=== PATIENT | female | born 1955 | race Caucasian/White ===

== ENCOUNTER → 2018-03-19 | Outpatient (CLI) | payer OTHER ==
[~2018-03-19] MED LIST: AMLO10TA82 PO; CIPR-17 PO; CIPR500T78 PO; CLON-378 PO; FURO40TA4 PO; GLIM4TAB PO; HCT25T PO; LEVO500T69 PO; LIRA0.6P SQ; LORA-794 PO; METF750T2 PO; NEBI20TA2 PO; OXYC-12 PO; PHEN118S11 PO; PIOG45TA19 PO; PRD5T PO; PREG100C22 PO; PROMETHAZINE PO; RAMI10CA PO; SPIR25TA3 PO; TEMA30CA6 PO; TOPI25TA2 PO
--- NOTE | 2018-03-19 13:06 | Diagnostic Imaging Report ---
INDICATION: Screening. TECHNIQUE: Screening digital mammography was performed bilaterally with a Computer Aided Detection (CAD) system. 3D tomosynthesis was also performed and reviewed. COMPARISON: No prior examinations are available for comparison. FINDINGS: There are scattered fibroglandular densities bilaterally. There are extensive vascular calcifications as well as a few benign type calcifications. There is no dominant mass, spiculated lesion, or suspicious calcification identified. The skin, nipples, and axillae are unremarkable. IMPRESSION: Benign findings. ACR BI-RADS Category 2: Benign findings. Result letter will be mailed to the patient. Note: At least 10% of breast cancer is not imaged by mammography. Dictated by: Dictated on workstation # [id number]
== END ==
LOC: RAD 07:22
PROVIDERS: ATTEND Nurse Practitioner Family
DX: Z12.31 Encounter for screening mammogram for malignant neoplasm of breast (principal)
CPT/HCPCS: 77067

== ENCOUNTER 2018-07-08 10:45 | Outpatient (CLI) | payer OTHER ==
[~2018-07-08] VITALS: Ht 170.2 cm; Wt 129.7 kg
[~2018-07-08 10:45] MED LIST changes: +ASPI-586 PO; +CALC0.5C11 PO; +FEBU80TA PO; +GABA-486 PO; +GLIP10TA13 PO; +INSU100I34 SQ; +LOSA50TA7 PO; +METO50TA15 PO; +METO5TAB6 PO; +PIOG15TA67 PO; +PRAV20TA3 PO
== END 2018-07-08 10:49 | disposition home or self-care (01) ==
LOC: PREOP 10:45
PROVIDERS: ATTEND Surgery
DX: Z01.818 Encounter for other preprocedural examination (principal)

== ENCOUNTER 2018-07-10 09:48 | Day surgery (SDC) | payer OTHER ==
[~2018-07-10] VITALS: Ht 170.2 cm; Wt 129.7 kg
[2018-07-10] MEDS ORDERED: D5 NS 1000 ML IV SOLUTION 1,000 ML IV ONE (09:51)
[2018-07-10 09:55] VITALS: BP 118/65
[2018-07-10] MEDS ORDERED: fentaNYL INJECTION 100 MCG/2 ML AMP IVP ONE (10:15)
[2018-07-10] MEDS ORDERED: MIDAZOLAM 2 MG/2 ML (VERSED) VIAL IVP ONE (10:15)
[2018-07-10] MEDS ORDERED: LIDOCAINE JELLY 2% 6 ML SYRINGE MM PRN (10:15)
[2018-07-10] MEDS ORDERED: MIDAZOLAM 2 MG/2 ML (VERSED) VIAL ONE ×4 (10:19→10:20)
[2018-07-10] MEDS ORDERED: fentaNYL INJECTION 100 MCG/2 ML AMP ONE (10:19)
[2018-07-10] MEDS ORDERED: LIDOCAINE JELLY 2% 6 ML SYRINGE ONE (10:20)
[2018-07-10] MEDS ORDERED: D5 NS 1000 ML IV SOLUTION 1,000 ML IV PRN (10:30)
--- NOTE | 2018-07-10 10:57 | Conscious Sedation/ASA ---
Conscious Sedation Pre-Proced Time 09:30 ASA Score 2 For ASA 3 and 4: Consider anesthesia and medical clearance. Also, for patients with a history of failed moderate sedation consider anesthesia. Airway Lungs Heart ASA score ASA 1: a normal healthy patient ASA 2: a patient with a mild systemic disease (mid diabetes, controlled hypertension, obesity ASA 3: a patient with a severe systemic disease that limits activity (angina , COPD, prior Myocardial infarction) ASA 4: a patient with an incapacitating disease that is a constant threat to life (CHF, renal failure) ASA 5: a moribund patient not expected to survive 24 hrs. (ruptured aneurysm) ASA 6: a declared brain patient whose organs are being harvested. For emergent operations, add the letter E after the classification Mallampati Classification Grade 3 Sedation Plan Analgesia, Amnesia, Plan communicated to team members, Discussed options with patient/fam, Discussed risks with patient/fam The patient is an appropriate candidate to undergo the planned procedure, sedation, and anesthesia. The patient immediately re-assessed prior to indication. ROS PEREIRA MD Jul 10, 2018 10:57
--- NOTE | 2018-07-10 10:58 | Progress Note-Pre Operative ---
Pre-Operative Progress Note H&P Reviewed The H&P was reviewed, patient examined and no changes noted. Date Seen by Provider: Jul 10, 2018 Time Seen by Provider: 09:30 Date H&P Reviewed: Jul 10, 2018 Time H&P Reviewed: :30 Pre-Operative Diagnosis: screening colonoscopy ROS PEREIRA MD Jul 10, 2018 10:58
--- NOTE | 2018-07-10 10:59 | Progress Note-Post Operative ---
Post-Operative Progess Note Surgeon (s)/Scullion Chief (s) Surgeon ROS PEREIRA MD Scullion Chief: none Pre-Operative Diagnosis screening colonoscopy Post-Operative Diagnosis mild chronic stage1 ext and int hemorrhoids. Procedure & Operative Findings Date of Procedure 07/10/18 Procedure Performed/Findings Colonoscopy Anesthesia Type CS Estimated Blood Loss Estimated blood loss (mL): minimal Specimens/Packing Specimens Removed none ROS PEREIRA MD Jul 10, 2018 10:59
[2018-07-10] MEDS ORDERED: ONDANSETRON 4 MG/2 ML (SDV) Z0FRAN IV PRN (11:00)
[2018-07-10] MEDS ORDERED: morphine INJ 10 MG/ML 1ML (SYR OR VIAL) IV PRN (11:00)
[2018-07-10] MEDS ORDERED: HYDROcodone/APAP 5 MG/325 MG (LORTAB) TAB PO PRN (11:00)
[2018-07-10] MEDS ORDERED: ACETAMINOPHEN 325 MG TABLET PO PRN (11:00)
--- NOTE | 2018-07-10 11:02 | Discharge Inst-Surgical ---
D/C Lap Instructions-KIDO Follow Up Appt 10 years Activity as tolerated High Fiber Diet 25g or more per day Avoid Alcohol, Caffeine, Spicy [place] and Acid foods. Drink 64 fluid oz or more of fluids per day. Symptoms to Report: Fever over 101 degree F, Nausea/Vomiting If any problems/questions: Contact your physician or go to Emergency Room ROS PEREIRA MD Jul 10, 2018 11:02
[2018-07-10 11:10] VITALS: BP 140/66
[2018-07-10 11:35] VITALS: BP 122/60
[2018-07-10 12:05] VITALS: BP 122/60
--- NOTE | 2018-07-10 15:00 | OPERATIVE REPORT ---
DATE OF SERVICE: 07/10/2018 ATTENDING PRIMARY CARE PHYSICIAN: Rafael Maher MD. PREOPERATIVE DIAGNOSIS: Screening colonoscopy. POSTOPERATIVE DIAGNOSIS: Mild chronic stage I external and internal hemorrhoids. The remainder of the rectum and colon were normal. PROCEDURE: Colonoscopy. SURGEON: Ros Pereira MD. ANESTHESIA: Conscious sedation. ESTIMATED BLOOD LOSS: Minimal. FINDINGS: Mild chronic stage I external and internal hemorrhoids, not actively edematous nor inflamed and no bleeding. The remainder of the rectum and colon were normal. There were no polyps or any neoplasms identified. DISPOSITION: The patient tolerated the procedure well. INDICATIONS: The patient is a 62-year-old female in need of a screening colonoscopy. She has not had a colonoscopy up to this point in her life. She reports, for the most part, she is doing well and does not report any major issues with diarrhea nor constipation as well as no red blood per rectum nor any dark tarry stools. She also does not report any family history of colon cancer. She has not had a colonoscopy up to this point in her life. DESCRIPTION OF PROCEDURE: The patient was brought to the endoscopy suite and laid in the left lateral decubitus position. After adequate IV pain and sedative medications and conscious sedation anesthesia, a digital rectal examination was performed. Mild chronic stage I external and internal hemorrhoids were identified, which were not actively edematous nor inflamed and no bleeding. Normal sphincter tone was felt and there were no palpable masses. The endoscope was then intubated to the anus and rectum gently insufflated. The endoscope was then advanced to the valves of Mon in the rectum with no polyps or any neoplasms identified. The endoscope was then advanced to the sigmoid colon, where there were no diverticulosis identified. The endoscope was then advanced to the remainder of the descending, transverse and ascending colon to the cecum. These segments were normal. There were no polyps or any neoplasms identified throughout the colon or rectum. The endoscope was then slowly withdrawn while taking a second look and suctioning of residual air with no additional findings. The patient tolerated the procedure well. We will recommend continued medical management with a high fiber diet with at least 25 grams of fiber per day as well as copious amounts of water daily to promote soft stools on a daily basis. She does not need another colonoscopy for another 10 years. Job ID: [id number] DocumentID: [id number] Dictated Date: 07/10/2018 10:59:54 Actuarial Intern Date: 07/10/2018 14:59:52 Dictated By: ROS PEREIRA MD
== END 2018-07-10 11:45 | disposition home or self-care (01) ==
LOC: ENDO 09:48
PROVIDERS: ATTEND Surgery
DX: Z12.11 Encounter for screening for malignant neoplasm of colon (principal); K64.0 First degree hemorrhoids; E11.22 Type 2 diabetes mellitus with diabetic chronic kidney disease; E11.40 Type 2 diabetes mellitus with diabetic neuropathy, unspecified; E66.01 Morbid (severe) obesity due to excess calories; I10 Essential (primary) hypertension; E78.00 Pure hypercholesterolemia, unspecified; M10.9 Gout, unspecified; Z79.82 Long term (current) use of aspirin; Z79.4 Long term (current) use of insulin; Z79.899 Other long term (current) drug therapy
CPT/HCPCS: 82962

== ENCOUNTER 2018-08-27 16:21 | Inpatient (IN) | payer OTHER ==
[~2018-08-27] VITALS: Ht 170.2 cm; Wt 134.7 kg
[~2018-08-27 16:21] MED LIST changes: +LOSA50TA63 PO; -LOSA50TA7 PO
--- NOTE | 2018-08-27 16:22 | NUR ---
1622: PT TO ROOM #1 FROM POV VIA ED W/C BY ED STAFF. LETHARGIC WITH SLURRED SPEECH. ALERT TO SELF. DIAPHORETIC. SKIN TEAR NOTED TO RT FOREARM AND RT HAND. 1625: O2 SAT 96% VIA 2L P79 BP 126/93 TYMPANIC TEMP 97.6 1630: RT IN ROOM. END TITAL CO2 46 1636: ABG DRAWN BY RT FROM RT RADIAL. 1640: UNABLE TO OBTAIN IV ACCESS AFTER MULTIPLE ATTEMPTS BY MULTIPLE RN'S.
--- OUTSIDE RECORDS SUMMARY | 2018-08-27 16:36 | XMS REPORT | Encounter Summary ---
Author Author [facility] Organization [facility] Address Unknown Phone Unavailable Care Team Providers Care Parts Assembler Name Role Phone Rafael Maher MD PCP Kellie Ravi MD [phone] Debbie Todd DO Unavailable Nir Ravi MD [phone] Reason for Visit * Reason Comments Financial/Insurance BARIATRICS Questions Encounter Details Care Team Description Date Type Department Santosh-Lianna Lancaster Financial/Insurance Questions (BARIATRICS) 08/06/2018 Telephone [facility] [address] [address] Social History Date Tobacco Use Types Packs/Day Years Used Never Smoker Smokeless Tobacco: Never Used Sex Assigned at Date Recorded Not on file Industry Job Start Date Occupation Not on file Not on file Not on file Travel End Travel History Travel Start No recent travel history available. as of this encounter Functional Status Date of Assessment Functional Status Response 06/03/2018 Does the patient have a hearing impairment: No 06/03/2018 Does the patient have a visual impairment: No 06/03/2018 Does the patient have impaired ambulation: Yes 06/03/2018 Does the patient have an activity of daily living No (ADL) impairment: 06/03/2018 Does the patient have an instrumental activity of No daily living (IADL) impairment: Date of Assessment Cognitive Status Response 06/03/2018 Does the patient have a cognitive impairment: No as of this encounter Miscellaneous Notes * Telephone Encounter - Lianna Johnson - 08/06/2018 9:38 AM MANAGER SHAREPOINT NO BARIATRIC BENEFITS ON PLAN Date verified: 08/06/18 Verification Source/Phone# (if applicable): [phone] MILADYS[place]ILBERTOCALLIE Reference #: [id number] In Network for Facility: YES Ins Plan and ID#: [facility] ID # [id number] NO BARIATRIC BENEFITS ON PLAN Group #:[id number] Subscriber name: BEVERLEY HUTCHNIS Subscriber : [id number] Effective Date: 06/25/13 GER SHAREPOINT in this encounter Plan of Treatment Not on fileas of this encounter Visit Diagnoses Not on filein this encounter
--- OUTSIDE RECORDS SUMMARY | 2018-08-27 16:36 | XMS REPORT | Encounter Summary ---
Author Author [facility] Organization [facility] Address Unknown Phone Unavailable Care Team Providers Care Merchandise Flow Team Member Name Role Phone Rafael Maher MD PCP Kellie Ravi MD [phone] Debbie Todd DO Unavailable Nir Ravi MD [phone] Reason for Visit * Reason Comments Financial/Insurance Authorization for Kidney Eval Questions Encounter Details Care Team Description Date Type Department Anel Walsh Financial/Insurance Questions (Authorization for Kidney Eval) 06/13/2018 Telephone [facility] 1st FLOOR [address] [place], [place] [id number] Social History Date Tobacco Use Types Packs/Day [...] encounter Miscellaneous Notes * Telephone Encounter - Anel Walsh - 06/13/2018 6:41 AM SCARRER TRANSPLANT AUTHORIZATION PLAN[employer]UM/UHCAUTHORIZATION Phase 1 Evaluation Called Nurse Case Manger Brigette left her a message with my contact information and patient's information and a brief message advising her to close the [employer] case per selection committee on 06/12/18 patient not a Transplant candidate at this time. NCM: Brigette Phone.[phone] Ext. [phone] RER in this encounter Plan of Treatment Not on fileas of this encounter Visit Diagnoses Not on filein this encounter
--- OUTSIDE RECORDS SUMMARY | 2018-08-27 16:36 | XMS REPORT | Clinical Summary ---
Author Author [facility] Organization [facility] Address Unknown Phone Unavailable Care Team Providers Care Historical Site Guide Name Role Phone Rafael Maher MD PCP Kellie Ravi MD [phone] Debbie Todd DO Unavailable Nir Ravi MD [phone] Source Comments Some departments are not documenting in the electronic medical record. If you do not see the information that you expected, contact Release of Information in the Health Information Management department at [phone] for further assistance in locating additional records.[facility] Allergies No Known Allergies Medications End Date Status Medication Sig Dispensed Refills Start Date Active liraglutide(+) (VICTOZA Inject 1.8 mg 0 2-JOANNA) 0.6 mg/0.1 mL (18 under the mg/3 mL) pnij skin daily. Active insulin glargine (LANTUS Inject 10 0 SOLOSTAR, BASAGLAR) 100 Units under unit/mL (3 mL) injection the skin at PEN bedtime daily. Active gabapentin (NEURONTIN) Take 100 mg 0 100 mg capsule by mouth three times daily. Active pravastatin (PRAVACHOL) Take 20 mg by 0 20 mg tablet mouth at bedtime daily. Active metOLazone (ZAROXOLYN) 5 Take 5 mg by 0 mg tablet mouth every 48 hours. Active pioglitazone (ACTOS) 15 Take 15 mg by 0 mg tablet mouth daily. Active furosemide (LASIX) 40 mg Take 40 mg by 0 tablet mouth every 48 hours. Active metoprolol XL (TOPROL XL) Take 50 mg by 0 50 mg extended release mouth twice tablet daily. Active Febuxostat 80 mg tab Take 80 mg by 0 mouth daily. Active calcitriol (ROCALTROL) Take 0.5 mcg 0 0.5 mcg capsule by mouth daily. Active losartan (COZAAR) 50 mg Take 50 mg by 0 tablet mouth daily. Active glipiZIDE (GLUCOTROL) 10 Take 10 mg by 0 mg tablet mouth twice daily. Active Problems Not on file Encounters Care Team Description Date Type Specialty Frost-Lianna Lancaster Financial/Insurance Questions (BARIATRICS) 08/06/2018 Telephone General Surgery Cassandra Sullivan RN 07/16/2018 Telephone General Surgery Rashida Morris RN Abstract (Selection committee decision: deny ) 06/13/2018 Telephone Transplant Surgery Anel Walsh Financial/Insurance Questions (Authorization for Kidney Eval) 06/13/2018 Telephone Transplant Surgery Anel Walsh Financial/Insurance Questions (Selection Meeting Prep) 06/11/2018 Telephone Transplant Surgery Anel Walsh Financial/Insurance Questions (Financial Assessment) 06/04/2018 Telephone Transplant Surgery Matt Greene MD Pre-transplant evaluation for kidney transplant (Primary Dx) 06/03/2018 Transplant Transplant Surgery Evaluation Matt Greene MD Ilahe, Amna, MD Budhiraja, Pooja, MD Pre-transplant evaluation for end stage renal disease ( Primary Dx); Type 2 diabetes mellitus with stage 4 chronic kidney disease, with long-term current use of insulin (HCC) 06/03/2018 Transplant Transplant Surgery Evaluation Anel Walsh Financial/Insurance Questions (Authorization for Kidney Eval) 06/03/2018 Telephone Transplant Surgery Anel Walsh Financial/Insurance Questions (Financial Consult) 06/03/2018 Telephone Transplant Surgery Anel Walsh Financial/Insurance Questions (Authorization for Kidney Eval) 06/03/2018 Telephone Transplant Surgery Anel Walsh Financial/Insurance Questions (Authorization for Kidney Eval) 05/30/2018 Telephone Transplant Surgery from Last 3 Months Social History Date Tobacco Use Types Packs/Day Years Used Never Smoker Smokeless Tobacco: Never Used Sex Assigned at Date Recorded Not on file Industry Job Start Date Occupation Not on file Not on file Not on file Travel End Travel History Travel Start No recent travel history available. Last Filed Vital Signs Time Taken Vital Sign Reading 06/03/2018 11:08 AM AIRPLANE FIRST OFFICER Blood Pressure 114/68 06/03/2018 11:08 AM AIRPLANE FIRST OFFICER Pulse 73 06/03/2018 11:07 AM AIRPLANE FIRST OFFICER Temperature 36.3 C (97.3 F) - Respiratory Rate - 06/03/2018 11:07 AM AIRPLANE FIRST OFFICER Oxygen Saturation 97% - Inhaled Oxygen - Concentration 06/03/2018 11:07 AM AIRPLANE FIRST OFFICER Weight 129.6 kg (285 lb 11.2 oz) 06/03/2018 11:07 AM AIRPLANE FIRST OFFICER Height 170.2 cm (5' 7") 06/03/2018 11:07 AM AIRPLANE FIRST OFFICER Body Mass Index 44.75 Plan of Treatment Health Maintenance Due Date Last Done Comments HEPATITIS C SCREENING 1954 PHYSICAL (COMPREHENSIVE) 1961 EXAM HIV SCREENING 1969 DILATED EYE EXAM 1972 DTAP/TDAP VACCINES (1 - 1972 Tdap) FOOT EXAM 1972 HBA1C 1972 PNEUMONIA VACCINE (DM) 1972 CERVICAL CANCER SCREENING 1984 BREAST CANCER SCREENING 1994 COLORECTAL CANCER 2004 SCREENING SHINGLES RECOMBINANT 2004 VACCINE (1 of 2) INFLUENZA VACCINE 01/23/2019 06/03/2009 Results Not on filefrom Last 3 Months Insurance Payer Benefit Subscriber ID Type Phone Address Plan / Group [facility] xxxxxxxxx Indemnity CHOICE/CHO ICE PLUS Guarantor Name Account Relation to Date of Phone Billing Address Type Patient [id number] Personal/F Spouse 02/23/[address] [place] (Home) [place] [address] AmersLauren suh L Transplant Self [address] (Home) [place] [address] Advance Directives Patient has advance care planning documents on file. For more information, please contact: [facility] [address] [place] [address]
--- OUTSIDE RECORDS SUMMARY | 2018-08-27 16:36 | XMS REPORT | Encounter Summary ---
Author Author [facility] Organization [facility] Address Unknown Phone Unavailable Care Team Providers Care Loss Control Consultant Name Role Phone Rafael Maher MD PCP Kellie Ravi MD [phone] Debbie Todd DO Unavailable Nir Ravi MD [phone] Reason for Visit * Reason Comments Abstract Selection committee decision: aris Encounter Details Care Team Description Date Type Department Rashida Morris RN Abstract (Selection committee decision: aris ) 06/13/2018 Telephone [facility] 1st FLOOR [address] [place] [address] Social History Date Tobacco Use Types Packs/Day [...] encounter Miscellaneous Notes * Telephone Encounter - Rashida Morris RN - 06/17/2018 8:28 AM ECDIS N NAVIGATION OPERATOR Coordinator called patient to follow up regarding selection committee decision from yesterday. I reached her voicemail and left a detailed message stating that our selection committee reviewed her case and there were barriers to transplant identified at this time. I stated that her barrier is her weight/BMI of 45. I stated that our team encourages her to work on weight loss and consider bariatric surgery. I stated that at this time the decision is to deny/ close her evaluation until she has lost the weight. I stated in the vm that she may call me with any questions. About 2 hours later patient called and I reviewed the above information with her. I stated that a referral for bariatric surgery has been placed and she should be hearing from their office soon. Patient stated that she looked into bariatric surgery in [place] however her insurance denied the claim. I stated that I am unsure if it will be different at or not. I stated that our surgeon wrote in his note that he recommends bariatric surgery as a way to assist her to be healthy enough for kidney transplant. I offered to call bariatric surgery to see where she is at in the referral process and then call her back. I called bariatric clinic and stated that a referral for this patient was started last week and I was following up. I was told by the third rail installer that they have called the patient twice and have yet to hear back. I took the phone number and stated that I will inform patient of this detail. I returned call to [place] to review the above information and gave her the phone number to call back. She stated she will call today. I reviewed that her evaluation with kidney transplant is closed at this time, she was able to verbalize understanding. -Transplant tab switched to evaluation ineligible -Denial letter drafted and given to MA to mail S N NAVIGATION OPERATOR in this encounter Plan of Treatment Not on fileas of this encounter Visit Diagnoses Not on filein this encounter
--- OUTSIDE RECORDS SUMMARY | 2018-08-27 16:36 | XMS REPORT | Encounter Summary ---
Author Author [facility] Organization [facility] Address Unknown Phone Unavailable Care Team Providers Care Engineering Project Manager Name Role Phone Rafael Maher MD PCP Kellie Ravi MD [phone] Debbie Todd DO Unavailable Nir Ravi MD [phone] Encounter Details Care Team Description Date Type Department Cassandra Sullivan RN 07/16/2018 Telephone [facility] [address] [facility] [address] [place] [address] Social History Date Tobacco Use Types Packs/Day [...] encounter Miscellaneous Notes * Telephone Encounter - Cassandra Sullivan RN - 07/16/2018 11:59 AM COURTESY CAR DRIVER Called patient to update her on the status of her referral, left vm. TESY CAR DRIVER in this encounter Plan of Treatment Not on fileas of this encounter Visit Diagnoses Not on filein this encounter
--- OUTSIDE RECORDS SUMMARY | 2018-08-27 16:36 | XMS REPORT | Encounter Summary ---
Author Author [facility] Organization [facility] Address Unknown Phone Unavailable Care Team Providers Care Medical Instructor Name Role Phone Rafael Maher MD PCP Kellie Ravi MD [phone] Debbie Todd DO Unavailable Nir Ravi MD [phone] Reason for Visit * Reason Comments Financial/Insurance Selection Meeting Prep Questions Encounter Details Care Team Description Date Type Department Anel Walsh Financial/Insurance Questions (Selection Meeting Prep) 06/11/2018 Telephone [facility] 1st FLOOR [address] [place] [address] Social History Date Tobacco Use Types Packs/Day [...] * Telephone Encounter - Anel Walsh - 06/11/2018 2:35 PM CYCLE ANALYST Selection Meeting Preparation Insurance has been verified though [employer]. As of 06/11/18 patient has active [facility]. Ref.#:[id number]. *Financial Assessment has been Approved *Written Auth Required for Listing *No Financial Concerns / Barriers. MM 06/11/18 E ANALYST in this encounter Plan of Treatment Not on fileas of this encounter Visit Diagnoses Not on filein this encounter
--- OUTSIDE RECORDS SUMMARY | 2018-08-27 16:36 | XMS REPORT | Encounter Summary ---
Author Author [facility] Organization [facility] Address Unknown Phone Unavailable Care Team Providers Care Manager Instrumentation Name Role Phone Rafael Maher MD PCP Kellie Ravi MD [phone] Debbie Todd DO Unavailable Nir Ravi MD [phone] Reason for Visit * Reason Comments Financial/Insurance Financial Assessment Questions Encounter Details Care Team Description Date Type Department Anel Walsh Financial/Insurance Questions (Financial Assessment) 06/04/2018 Telephone [facility] 1st FLOOR [address] [place] [address] Social History Date Tobacco Use Types Packs/Day [...] * Telephone Encounter - Anel Walsh - 06/04/2018 11:08 AM PROFESSIONAL POKER PLAYER Financial Assessment Financial Assessment has been received, reviewed and APPROVED. Patient has adequate resources for pre and post transplant care. Patient and team have been notified. MM 06/04/18 ESSIONAL POKER PLAYER in this encounter Plan of Treatment Not on fileas of this encounter Visit Diagnoses Not on filein this encounter
--- OUTSIDE RECORDS SUMMARY | 2018-08-27 16:37 | XMS REPORT | Encounter Summary ---
Author Author [facility] Organization [facility] Address Unknown Phone Unavailable Care Team Providers Care Arts Manager Name Role Phone Rafael Maher MD PCP Kellie Ravi MD [phone] Debbie Todd DO Unavailable Nir Ravi MD [phone] Reason for Visit * Reason Comments Kidney Evaluation Encounter Details Care Team Description Date Type Department Matt Greene MD [address] [facility] [address] [place], [place] [id number] Pre-transplant evaluation for kidney transplant (Primary Dx) 06/03/2018 [facility] 1st FLOOR [address] [place], [place] [id number] Social History Date Tobacco Use Types Packs/Day Years Used Never Smoker Smokeless Tobacco: Never Used Sex Assigned at Date Recorded Not on file Industry Job Start Date Occupation Not on file Not on file Not on file Travel End Travel History Travel Start No recent travel history available. as of this encounter Last Filed Vital Signs Time Taken Vital Sign Reading 06/03/2018 11:08 AM [employer] Blood Pressure 114/68 06/03/2018 11:08 AM [employer] Pulse 73 06/03/2018 11:07 AM [employer] Temperature 36.3 C (97.3 F) - Respiratory Rate - 06/03/2018 11:07 AM [employer] Oxygen Saturation 97% - Inhaled Oxygen - Concentration 06/03/2018 11:07 AM [employer] Weight 129.6 kg (285 lb 11.2 oz) 06/03/2018 11:07 AM [employer] Height 170.2 cm (5' 7") 06/03/2018 11:07 AM [employer] Body Mass Index 44.75 in this encounter Functional Status Date of Assessment [...] cognitive impairment: No as of this encounter Progress Notes * Matt Greene MD - 06/03/2018 12:40 PM [employer] Date of Service: 06/03/2018 Subjective: Lauren Kate is a 62 y.o. female. History of Present Illness Ms Kate is a 62 year old female with IDDM, morbid obesity, HTN with orthostatic hypotension, CKD 4, NOD She has been following with nephrology for past 3 years and has stage 4 kidney disease now. Kidney disease was attributed to DM Review of Systems Constitutional: Positive for fatigue. HENT: Negative. Eyes: Negative. Respiratory: Negative. Cardiovascular: Negative. Gastrointestinal: Negative. Endocrine: Negative. Genitourinary: Negative. Negative for enuresis. Musculoskeletal: Negative. Skin: Negative. Neurological: Negative. Negative for seizures and syncope. Hematological: Negative. Psychiatric/Behavioral: Negative. No past medical history on file. No past surgical history on file. No family history on file. Social History Socioeconomic History Marital status: Spouse name: Not on file Number of children: Not on file Years of education: Not on file Highest education level: Not on file Social Needs Financial resource strain: Not on file Food insecurity - worry: Not on file Food insecurity - inability: Not on file Transportation needs - medical: Not on file Transportation needs - non-medical: Not on file Occupational History Not on file Tobacco Use Smoking status: Never Smoker Smokeless tobacco: Never Used Substance and Sexual Activity Alcohol use: Not on file Drug use: Not on file Sexual activity: Not on file Other Topics Concern Not on file Social History Narrative Not on file Objective: Allergies as of 06/03/2018 (No Known Allergies) calcitriol (ROCALTROL) 0.5 mcg capsule Take 0.5 mcg by mouth daily. Febuxostat 80 mg tab Take 80 mg by mouth daily. furosemide (LASIX) 40 mg tablet Take 40 mg by mouth every 48 hours. gabapentin (NEURONTIN) 100 mg capsule Take 100 mg by mouth three times daily. glipiZIDE (GLUCOTROL) 10 mg tablet Take 10 mg by mouth twice daily. insulin glargine (LANTUS SOLOSTAR, BASAGLAR) 100 unit/mL (3 mL) injection PEN Inject 10 Units under the skin at bedtime daily. liraglutide(+) (VICTOZA 2-JOANNA) 0.6 mg/0.1 mL (18 mg/3 mL) pnij Inject 1.8 mg under the skin daily. losartan (COZAAR) 50 mg tablet Take 50 mg by mouth daily. metOLazone (ZAROXOLYN) 5 mg tablet Take 5 mg by mouth every 48 hours. metoprolol XL (TOPROL XL) 50 mg extended release tablet Take 50 mg by mouth twice daily. pioglitazone (ACTOS) 15 mg tablet Take 15 mg by mouth daily. pravastatin (PRAVACHOL) 20 mg tablet Take 20 mg by mouth at bedtime daily. Vitals: 06/03/18 1107 06/03/18 1108 BP: 160/57 114/68 Pulse: 63 73 Temp: 36.3 C (97.3 F) TempSrc: Oral SpO2: 97% Weight: 129.6 kg (285 lb 11.2 oz) Height: 170.2 cm (67") Body mass index is 44.75 kg/m. Physical Exam Constitutional: She appears well-developed and well-nourished. No distress. HENT: Head: Normocephalic. Right Ear: External ear normal. Left Ear: External ear normal. Nose: Nose normal. Mouth/Throat: Oropharynx is clear and moist. Eyes: Conjunctivae and EOM are normal. Pupils are equal, round, and reactive to light. Cardiovascular: Normal rate, regular rhythm, normal heart sounds and intact distal pulses. Exam reveals no gallop and no friction rub. No murmur heard. Pulmonary/Chest: Effort normal. No stridor. No respiratory distress. She has no wheezes. She has rales. She exhibits no tenderness. Abdominal: Soft. Bowel sounds are normal. She exhibits distension. She exhibits no mass. There is no rebound and no guarding. No hernia. Musculoskeletal: Normal range of motion. She exhibits no edema, tenderness or deformity. Neurological: She displays normal reflexes. No cranial nerve deficit or sensory deficit. She exhibits normal muscle tone. Coordination normal. Skin: Skin is warm and dry. No rash noted. She is not diaphoretic. No erythema. No pallor. Psychiatric: She has a normal mood and affect. Her behavior is normal. Judgment and thought content normal. Nursing note and vitals reviewed. No results found for any previous visit. Assessment and Plan: 62 y.o. female with past medical history significant for Ms Kate is a 62 year old female with IDDM, morbid obesity, HTN with orthostatic hypotension, CKD 4, NOD She has been following with nephrology for past 3 years and has stage 4 kidney disease now. Kidney disease was attributed to DM for 10 years Plan: The patient was seen and examined. She is currently not a surgical candidate due to central obesity pending full evaluation. I went ahead in discussed with the patient surgical aspects of kidney transplant, life commitment as well as elaborated on versus living donor transplants, immunosuppression, risks and benefits in detail. Strongly recommend bariatric surgery pre naa sleeve gastrectomy.The patient will be discussed in our selection committee. Matt Greene MD [employer] in this encounter Plan of Treatment Not on fileas of this encounter Visit Diagnoses Diagnosis Pre-transplant evaluation for kidney transplant - Primary Other specified pre-operative examination in this encounter
--- OUTSIDE RECORDS SUMMARY | 2018-08-27 16:37 | XMS REPORT | Encounter Summary ---
Author Author [facility] Organization [facility] Address Unknown Phone Unavailable Care Team Providers Care Radio Script Writer Name Role Phone Rafael Maher MD PCP Kellie Ravi MD [phone] Debbie Todd DO Unavailable Nir Ravi MD [phone] Reason for Visit * Reason Comments Financial/Insurance Authorization for Kidney Eval Questions Encounter Details Care Team Description Date Type Department Anel Walsh Financial/Insurance Questions (Authorization for Kidney Eval) 06/03/2018 Telephone [facility] 1st FLOOR [address] [place], [place] [id number] Social History Date Tobacco Use Types Packs/Day [...] * Telephone Encounter - Anel Walsh - 06/03/2018 11:37 AM 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 Advised Brigette that we are seeing patient today for Eval and requested a call back. Advised her that we started case on 05/23/18 with an effective date of 06/03/18. Waiting pending call form nurse case management coordinator. Phone.[phone] Ext. [phone] MM 06/03/18 ER MAKER in this encounter Plan of Treatment Not on fileas of this encounter Visit Diagnoses Not on filein this encounter
--- OUTSIDE RECORDS SUMMARY | 2018-08-27 16:37 | XMS REPORT | Encounter Summary ---
Author [facility] Address Unknown Phone Unavailable Care Team Providers Care It Operations Specialist Name Role Phone Rafael Maher MD PCP Kellie Ravi MD [phone] Debbie Todd DO Unavailable Nir Ravi MD [phone] Reason for Referral * Consult, Test & Treat (Routine) Referred By Contact Referred To Contact Status Reason Specialty Diagnoses / Procedures Linda Raya MD [address] [place] [address] Cmp Ukp Bariatric [address] [facility] [address] [place] [address] Closed Specialty Services Bariatrics / Diagnoses Required General Surgery Pre-transplant evaluation for end stage renal disease Reason for Visit * Reason Comments Kidney Evaluation * Transplant (Routine) Referred By Contact Referred To Contact Status Reason Specialty Diagnoses / Procedures Nir Ravi MD [address] [facility] 1 [place] [address] [facility] 1st FLOOR [address] [place] [address] Closed Transplant Diagnoses Surgery Pre-transplant evaluation for kidney transplant Encounter Details Care Team Description Date Type Department Matt Greene MD [address] [facility] [address] [place] [address] [phone] Valeria Heath MD Forwarding Address Unknown Retired Linda Raya MD [address] [place] [address] Pre-transplant evaluation for end stage renal disease ( Primary Dx); Type 2 diabetes mellitus with stage 4 chronic kidney disease, with long-term current use of insulin (HCC) 06/03/2018 Transplant Center for Evaluation Transplantation-Kidney/Pa [facility] 1st FLOOR [address] [place], [place] [id number] Social History Date Tobacco Use Types Packs/Day Years Used Never Smoker Smokeless Tobacco: Never Used Sex Assigned at Date Recorded Not on file Industry Job Start Date Occupation Not on file Not on file Not on file Travel End Travel History Travel Start No recent travel history available. as of this encounter Last Filed Vital Signs Time Taken Vital Sign Reading 06/03/2018 10:45 AM METAL CASKET MAKER Blood Pressure 160/57 06/03/2018 10:45 AM METAL CASKET MAKER Pulse 63 06/03/2018 10:45 AM METAL CASKET MAKER Temperature 36.3 C (97.3 F) - Respiratory Rate - 06/03/2018 10:45 AM METAL CASKET MAKER Oxygen Saturation 97% - Inhaled Oxygen - Concentration 06/03/2018 10:45 AM METAL CASKET MAKER Weight 129.6 kg (285 lb 11.2 oz) 06/03/2018 10:45 AM METAL CASKET MAKER Height 170.2 cm (5' 7") 06/03/2018 10:45 AM METAL CASKET MAKER Body Mass Index 44.75 in this encounter [...] cognitive impairment: No as of this encounter Patient Instructions * Patient Instructions* Ami Hinds RN - 06/03/2018 11:00 AM METAL CASKET MAKER You were seen by members of the Pre Renal/Pancreas Transplant Team today who has recommended that you complete the following: Referral to Bariatric Surgery (someone will call you to schedule) Complete and return the Financial Plan- done Please keep your Nurse Coordinator informed of ANY changes in your health and insurance status. We recommend that you sign up for MyChart. The activation code has been provided to you in your after visit summary for today's visit. It was a pleasure to see you today. Thank you for partnering with [facility] for your care. If you should have any questions or concerns, please feel free to contact us. Rashida Morris RN Renal/Pancreas Dust Collector Operator [facility] , fax [phone] L CASKET MAKER in this encounter Progress Notes * Genoveva López - 06/03/2018 11:00 AM METAL CASKET MAKER SOCIAL WORK PSYCHOSOCIAL ASSESSMENT Name: [facility] #: [id number] Date: 06/06/2018 Referral Source: Renal Transplant Team Referral Reason: Psychosocial evaluation for kidney transplant Date Referred: Source of Information: Patient and spouse Patient's Address: [address] [place] [id number] Date(s) Interviewed: 06/03 Telephone #: [phone] (home) 1. PRESENT SITUATION: Sex: female Age: 62 y.o. Birthdate: 1955 Primary Language: Afghan Ethnic Background: Scientology: (Optional) Diagnosis: ESRD, DM II Statement of Presenting Problem(s): Patient is a 62 y/o female who presents for evaluation for kidney transplant. She was diagnosed with CKD due to DM II three years ago. She is not on dialysis. She was initially referred to [facility] for transplant, but stated that she never completed evaluation due to insurance being out of network. She drives herself to medical appointments. She stated that she has a sore on her leg, but she denies any other current health concerns. She denies any recent hospitalizations. She was diagnosed with DM II ten years ago and is on an oral medication, as well as basaglar insulin (she is new to insulin in the last few months). She stated that she checks her blood sugars daily and that she follows with an regrinder operator, Dr. Debbie Todd. Per outside records, her most recent HbA1c was 6.4, it was 9.7 the time before. She stated that her next appointment /labs are in June. She did not have labs drawn this date. 2. PATIENT'S LIVING SITUATION PRIOR TO ADMISSION Citizenship: [place] Citizen Comments: Patient lives with her , Ty. They have lived in their current home for 20 years, they own their home. They live in a one level ranch , but there are three stairs to enter the home from the garage. She has never received any home health care services or had a stay in a SNF, rehab or LTACH. She is independent with ambulation and with ADL's. She was born in [place], [place] and has lived in [place] since about age 11. 3. 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 She stated that she has 'a lot' of paid leave available to her, but she does not believe that her employer offers FMLA. She voiced understanding that the average time off work post-transplant is 6-12 weeks and she denies any financial concerns regarding her time off during her transplant recovery. Ty is employed full-time as a customer experience professional for a [employer]. She has [employer] through Ty's employer for insurance. Sw explained Medicare coverage based on ESRD, patient will become eligible after initiating dialysis or at the time of transplant. Explained that dialysis unit/transplant team will complete 2728 form notifying Medicare of her eligibility and that she then must contact social security to enroll in this coverage, she voiced understanding. [facility] in [place] and she denies any financial barriers related to medication access or to going without medications. She is not receiving any sources of financial assistance with her daily living expenses. 4. SUPPORTIVE RELATIONSHIPS/ COMMUNITY RESOURCES Caregivers: Ty Kate (spouse- [phone]) Living Donors: Children and one brother Comments: Patient and her have been for 44 years. They have one son ([place]) and one daughter ([place]) and six grandchildren. Her mother is living in [place] and her father is . She has two living brothers, another brother is . Ty will be her primary caregiver post-transplant and confirmed that he is able to drive and to be off work. She stated that she has friends that will be available as back-up caregivers as needed. Sw discussed the requirement to stay locally for two weeks post transplant, she declined to receive the area lodging list or the transplant fundraising brochures. She has a friend that has a second home in [place], where they are able to stay as needed during her post transplant recovery. Patient voiced understanding of the weekly to bi-weekly [facility] clinic appointments for the first few months following transplant and annual visits thereafter. She verbalized understanding of the need to have a caregiver to assist with care and transportation post-transplant. She also acknowledged that she would not be able to drive for 2-4 weeks, post-transplant. 5. COGNITIVE ABILITIES Highest Level of Education: two years of college Comments: Patient hopes that transplant will help to maintain her health. She is most concerned about her need for bariatric surgery/weight loss in order to be considered for transplant and if insurance will cover this procedure as this has been a barrier in the past. She stated that she takes her medications as prescribed from their bottles, and that she keeps them all together in a bag. She stated that she does well with her adherence and that she keeps back up pills in her wallet for use if she is away from home. She voiced understanding of the need to take immunosuppressive medications for the life of the transplant. She denies having any history of tobacco use, substance use or of ETOH abuse. Her average alcohol use is two drinks per month at most. She denies having any history of mental health concerns, psychotropic medication use or of suicidal ideation. She denies any pending legal issues. She does not have a DPOA-HC or Advanced Directive in place at this time, sharee provided her with these forms, she wishes for Ty to be her health care agent. She enjoys making things she finds on pinterest and spending time with her grandchildren, ages 7-18. 6. SOCIAL WORK EVALUATION Comments: Sharee met with patient and her , Ty, as part of her evaluation for kidney transplant. She has health insurance coverage through [employer] to meet her medical needs following transplant. She receives support from her who will serve as her primary caregiver post transplant. She has reasonable expectations for the transplant process. She has no reported history of tobacco use, substance use or of ETOH. She has no reported history of mental health concerns and appears to be coping normally at this time. SW would recommend monitoring of patient's DM management for transplant consideration, she otherwise has no identified psychosocial barriers to kidney transplant. 7. PLAN Plan Discussed with Patient / Family: {PLAN DISCUSSED, AGREED UPON Plan Agreed Upon with Patient / Family: {PLAN DISCUSSED, AGREED UPON * Sw reviewed the Renal Transplant Patient Responsibilities form with patient and her , form signed by sw, patient and spouse who both expressed agreement with the transplant expectations. Original provided to patient and copy provided to the transplant team to be scanned into the medical record. Genoveva López LMSW L CASKET MAKER * Phyllis Wilson - 06/03/2018 11:00 AM METAL CASKET MAKER Renal Transplant Nutrition Evaluation Impressions: I see no nutritional contraindications to transplantation at this time. Pt has an appropriate body habitus for RTx. Body mass index is 44.75 kg/m . Estimated body mass index is 44.75 kg/m as calculated from the following: Height as of this encounter: 170.2 cm (67"). Weight as of this encounter: 129.6 kg (285 lb 11.2 oz). Subjective: Pt reported current weight: 285# Usual wt in the past 6 mo: 298# Pt reported muscle/weight loss: attempting to lose weight Nutrition related compliance: Needs Improvement 62 yo female with Hx of CKD 2/2 T2DM currently NOD and denies any previous tx. Pt reports she has lost ~12 pounds since her last appointment with diet and exercise. She also thinks since they started her on victoza this has decreased her appetite. Per diet recall she had nuts and dried fruit for breakfast, around 2pm patient and went to [facility] and she ate chicken breast, parmesan encrusted, salad, sweet potato with butter and iced tea. Later she ate cheese crackers, peanut butter and honey. She recently started on insulin about 2 months ago. Per surgeon patient needs to lose weight prior to being appropriate for a transplant. She has tried to apply for the gastric sleeve, but her husbands insurance wouldn't approve of the procedure. She has been dietitians for DM and weight loss and has not been successful in the past. She "eats her feeling" and her health and job are very stressful right now. Discussed working with a therapist to help find other coping mechanisms instead of stress eating. Or personally acknowledging and making better habits. Pt verbalized understanding. Instructed on post-transplant nutrition related expectations. Discussed importance of hand hygiene, food safety, grapefruit avoidance. Goals: Weight loss >50 pounds MD referral received on 06/04/2018 for medical nutrition therapy services. Phyllis Wilson, MS, RD, LD *[id number] L CASKET MAKER * Ami Hinds RN - 06/03/2018 11:00 AM METAL CASKET MAKER You were seen by: Linda Raya MD - referral to bariatric surg; no testing Matt Greene MD- central obesity ; ref to bariatric surg Anel Zambrano, Transplant Hot Stick Worker- +KAIA López AUTHOR AGENT- no concerns Debbie Polk PharmD- no concerns Phyllis Wilson, Registered Dietitian- has lost 12# in 6 mos; has tried to get bariatric surg before- ins issue; needs to lose over 50# You were seen by members of the Pre Renal/Pancreas Transplant Team today who has recommended that you complete the following: Referral to [facility] (someone will call you to schedule) Complete and return the Financial Plan- done Please keep your Nurse Coordinator informed of ANY changes in your health and insurance status. We recommend that you sign up for MyChart. The activation code has been provided to you in your after visit summary for today's visit. It was a pleasure to see you today. Thank you for partnering with [facility] for your care. If you should have any questions or concerns, please feel free to contact us. Rashida Morris RN Renal/Pancreas Dust Collector Operator [facility] , fax [phone] L CASKET MAKER * Debibe Polk, PHARMD - 06/03/2018 11:00 AM METAL CASKET MAKER Pharmacy Kidney Transplant Evaluation I met with Lauren Kate for their pharmacy transplant evaluation. A medication history and reconciliation were performed (including prescription medications, supplements, over the counter, and herbal products). The medication list was updated and the patients current medication list is included below. Home Medications Medication Sig calcitriol (ROCALTROL) 0.5 mcg capsule Take 0.5 [...] 20 mg by mouth at bedtime daily. Medication Adherence: Nash (0=Never, 1=Rarely, 2=Sometimes, 3=Often, 4=Always) Method utilized to manage medications: keeps in a bag, leaves medications on table, and then puts back in bag once finished taking How often do you forget to take one or more of your prescription medications? 0 How often do you run out of one or more of your prescription medications before getting a new refill? 0, automatic refills How often do you have difficulty swallowing medications or taking your medications? 0 How often do you have difficulty affording your prescription medications? 0 How often does your pharmacy have difficulty filing your prescription medications? 0 Patient Education: During this visit the patient was provided with an overview of therapies that will be initiated post-transplant, including but not limited to significant side effects and dosing schedules.No REMS are required for any of the prescribed medications for this patient. Emphasis was placed on the importance of medication adherence both pre and post- transplant. The patient was encouraged to contact the transplant pharmacist with any follow up questions. Lauren Kate expressed understanding of the information discussed. Assessment: Comments: Patient has a good routine to help with her medications Potential Drug Interactions: None Potential Barriers to Transplantation: None Recommendation: No medication related barriers to transplantation were identified. Debbie Polk PharmD, BCPS Pager: [phone] Office: [phone] L CASKET MAKER * Anel Walsh - 06/03/2018 11:00 AM METAL CASKET MAKER Financial Transplant Evaluation Anel Kothari met with Lauren Kate and her for insurance consult. There appear to be no coverage/insurance barriers to transplant with [employer] plan. Lauren expressed no insurance concerns related to cost of post-transplant care and medications and verbalized understanding of Transplant Finance Coordinator' s discussion and documents presented. Advised patient to call me if any insurance changes. Provided patient with my contact information. Patient verbalized understanding. Financial Assessment given due to financial liabilities. Authorization required prior to listing. Documents presented: Signed Patient Liability Form, Medication Cost Estimate and Financial Assessment. MM 06/03/18 L CASKET MAKER * Linda Raya MD - 06/03/2018 11:00 AM METAL CASKET MAKER 06/03/18 Lauren Kate [id number] 1955 Nir Ravi [address] [facility] [address] [place] [address] Nir Ravi We had the pleasure of meeting Ms. Kate in the Renal Transplant Clinic for evaluation of her candidacy for renal transplantation. Please find below a summary of her visit. Ms Kate is a 62 year old female with IDDM, obesity, HTN with orthostatic hypotension, CKD 4, NOD She has been following with nephrology for past 3 years and has stage 4 kidney disease now. Kidney disease was attributed to DM and she never had kidney bx. She has been diabetic for more than 10 years and was started on insulin few months ago by Dr Debbie Zuniga when her Hba1c was 10. She also gained 40 pounds in the last year and her BMI is 45 now. She reports weight gain due to stress eating. Since starting insulin per pt Hba1c is down to <7. She has neuropathy and had >40 point drop in BP on standing. She is not sure about retinopathy. Her last urine /pr was 0.14 on losartan. Mrs Kate also has h/o HTN and is currently on metoprolol and losartan. She doesn't exercise and cant take1 flight of stairs without getting CUMMINGS and joint discomfort . She has not had stress test or echo in the recent past. She is and had with second .She denies HTN, infections or DM during She has h/o gout is on uloric She had mammogram in February this year and is scheduled for PAP next week. She also has appointment with GI for colonoscopy. Comprehensive 14-point ROS obtained: Constitution: Denies fever, night sweats, weight gain + HENT: no thyroid problems. SHe has hyperparathyroidism due to renal insufficiency. Denies dental problems Eyes: no cataract or glaucoma Cardiovascular: As above. Gastrointestinal: No Nausea, vomiting, abdominal pain, hematemesis, melena Denies h/o liver disease Respiratory: Denies cough, hemoptysis. No H/o TB exposure Endocrine: h/o DM. Hematology/Lymphatic: Denies easy bruising or bleeding. No h/o malignancy Genitourinary: No Dysuria, nocturia or difficulty in urinating. Denies h/o kidney stones. Hematologic: Denies Bleeding dyscrasias . No h/o malignancy or Lymphadenopathy Musculoskeletal: Denies Arthralgias, myalgias Neurological: No h/o stroke, seizure, headache, weakness, Skin: no Rash, itching. No h/o skin cancer Extremities: no h/o claudication. No h/o ulcers. Psych:Denies h/o major depression or other psychiatric illness. Denies blood transfusion, blood clot. Denies allergy to rabbits Denies PARAG Otherwise negative besides what is stated above. PMH: CKD 4 Obesity Benign essential HTN HLD DM2 Renal osteodystrophy PSH: Allergies: Allergies not on file Social History Socioeconomic History Marital status: Number of children: 2 Years of education: [employer] college Highest education level: Not on file Tobacco Use Smoking status: Never Smoker Smokeless tobacco: Never Used Substance and Sexual Activity Alcohol use: No Drug use: No Family hx Mother was diagnosed with stomach cancer at age of 84 Mother was diagnosed with DM in her 80s Denies kidney disease Father had Parkinson disease and had IN in his 60s Current Medications: calcitriol (ROCALTROL) 0.5 mcg capsule Take 0.5 [...] 100 unit/mL (3 mL) injection PEN Inject under the skin at bedtime daily. liraglutide(+) [...] 20 mg by mouth at bedtime daily. Physical Exam: Vitals: 06/03/18 1045 BP: 160/57 Pulse: 63 Temp: 36.3 C (97.3 F) TempSrc: Oral SpO2: 97% Weight: 129.6 kg (285 lb 11.2 oz) Height: 170.2 cm (67") Constitutional: oriented to person, place, and time. HENT: Head: Normocephalic. Right Ear: External ear normal. Left Ear: External ear normal. Mouth/Throat: Oropharynx is clear and moist. No oropharyngeal exudate. Eyes: Conjunctivae are normal. Pupils are equal, round, and reactive to light. Neck: Normal range of motion. Neck supple. No JVD present. No tracheal deviation present. No thyromegaly present. Cardiovascular: Normal rate, regular rhythm and normal heart sounds. Exam reveals no gallop. No murmur heard. Pulmonary/Chest: Effort normal and breath sounds normal. No respiratory distress. Abdominal: Soft. There is no tenderness. large pannus Musculoskeletal: no tenderness. Edema: trace b/l peripheral pulses 2+ Lymphadenopathy: no cervical adenopathy. Neurological: alert and oriented to person, place, and time. No cranial nerve deficit. Skin: Skin is warm and dry. She is not diaphoretic. No pallor. Laboratory studies: from outside reviewed Potential barriers for Transplantation: Body habitus Education and Consent: We discussed the risks, benefits, and complications of renal transplantation with the patient including donor and living donor transplantation. We also discussed the kidney allocation system including KDPI, EPTS scores and wait times. The use, compliance with medications and side effects of immunosuppression including cancer and infection, the risk of primary graft non- function, SGF, DGF, rejection, primary disease recurrence were also discussed. The patient demonstrated a full and adequate understanding and all questions were answered. The patient was informed that higher KDPI (>85%) kidneys may incur some small additional risks compared to an SCD (or KDPI below 85%) kidney and those risks and benefits were also discussed. Ms. Kate consented to accept a higher KDPI (>85%) kidney should one become available for them and was informed they have a right to refuse any kidney that is offered to them for transplant without affecting their status on the wait list. Assessment and Plan: Ms. Kate presents today for consideration of kidney transplantation. Ms. Kate does not have potential living donors. Ms Kate is a 62 year old female with IDDM, obesity, HTN with orthostatic hypotension, CKD 4, NOD, poor functional status, Hyperlipidemia MS Kate needs to loose weight prior to further evaluation. She was also encouraged to increase her functional status. She has HTN with orthostatic hypotension and was advised to monitor BP at home She will also need further cardiac testing. We will have Ms. Kate update cardiac testing as well as obtain a CT of the abdomen/pelvis without contrast to evaluate for atherosclerosis/peripheral vascular disease and a chest xray to evaluate for abnormalities. The patient will be discussed in our Multidisciplinary Committee Selection Meeting before a final decision is made. The patient will be contacted by the pre-regulatory coordinator with the final decision Thank you for this opportunity in allowing us to participate in the care of your patient. Sincerely, Linda Raya MD CC: Rafael Maher L CASKET MAKER in this encounter Plan of Treatment Order Schedule Name Priority Associated Diagnoses Ordered: 06/03/2018 AMB REFERRAL TO BARIATRIC SURGERY Routine Pre-transplant evaluation for end stage renal disease as of this encounter Visit Diagnoses Diagnosis Pre-transplant evaluation for end stage renal disease - Primary Other specified pre-operative examination Type 2 diabetes mellitus with stage 4 chronic kidney disease, with long-term current use of insulin (HCC) in this encounter
--- OUTSIDE RECORDS SUMMARY | 2018-08-27 16:37 | XMS REPORT | Encounter Summary ---
Author Author [facility] Organization [facility] Address Unknown Phone Unavailable Care Team Providers Care Semi Conductor Assembler Name Role Phone Rafael Maher MD PCP Kellie Ravi MD [phone] Debbie Todd DO Unavailable Reason for Visit * Reason Comments Financial/Insurance Authorization for Kidney Eval Questions Encounter Details Care Team Description Date Type Department Anel Walsh Financial/Insurance Questions (Authorization for Kidney Eval) 05/30/2018 Telephone [facility] 1st [address]LOOR [address] [place] [address] Social History Date Tobacco Use Types Packs/Day Years Used Never Assessed Sex Assigned at Date Recorded Not on file Industry Job Start Date Occupation Not on file Not on file Not on file Travel End Travel History Travel Start No recent travel history available. as of this encounter Miscellaneous Notes * Telephone Encounter - Anel Walsh - 05/30/2018 12:[address] JUDGE TRANSPLANT AUTHORIZATION PLAN [facility] AUTHORIZATION Phase 1 Evaluation Nurse Case Sho Machuca left me a message with her contact information and a brief message advising me that she is double checking on Transplant Benefits to make sure that she does not have a Transplant Limit. She will call me in the next couple of days with determination. Phone.[phone] Ext. [phone] MM 05/30/[address] JUDGE in this encounter Plan of Treatment Not on fileas of this encounter Visit Diagnoses Not on filein this encounter
--- OUTSIDE RECORDS SUMMARY | 2018-08-27 16:37 | XMS REPORT | Encounter Summary ---
Author Author [facility] Organization [facility] Address Unknown Phone Unavailable Care Team Providers Care Data Processing Consultant Name Role Phone Rafael Maher MD PCP Kellie Ravi MD [phone] Debbie Todd DO Unavailable Nir Ravi MD [phone] Reason for Visit * Reason Comments Financial/Insurance Financial Consult Questions Encounter Details Care Team Description Date Type Department Anel Walsh Financial/Insurance Questions (Financial Consult) 06/03/2018 Telephone [facility] [address]st [address]LO[address] [place], [place] [id number] Social History Date Tobacco Use Types Packs/Day [...] Telephone Encounter - Anel Walsh - 06/03/2018 1:41 PM BULK SUGAR HANDLER Financial Transplant Evaluation Anel Kothari met with Lauren Kate and her for insurance consult. There appear to be no coverage/insurance barriers to transplant with [facility] plan. Lauren expressed no insurance concerns related [...] Cost Estimate and Financial Assessment. MM 06/03/18 SUGAR HANDLER in this encounter Plan of Treatment Not on fileas of this encounter Visit Diagnoses Not on filein this encounter
--- OUTSIDE RECORDS SUMMARY | 2018-08-27 16:40 | XMS REPORT | Continuity of Care Document ---
Author Author [facility] Organization [facility] Address Unknown Phone Unavailable Allergies Active Description Code Type Severity Reaction Onset Reported/Identified Relationship to Patient Clinical Status Yes No Known Drug Allergies [id number] Drug Allergy Unknown N/A 07/08/2018 Medications There is no data. 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, 05/24/1599 MARIA FERNANDA CASTANO MD, Ot L97.212 NON-PRESSURE CHRONIC ULCER OF RIGHT CALF 05/24/1599 MARIA FERNANDA CASTANO MD, Ot N18.5 CHRONIC KIDNEY DISEASE, STAGE 5 08/13/2013 ANDREW NAVARRO MD Ot 707.12 ULCER OF CALF 06/02/2014 RAMON MOTTA, ANDREW Parrish Ot 250.00 DIAB TIERRA WO COMPL, TYPE II OR UNSPEC TY 07/27/2015 MARIA FERNANDA CASTANO MD, Ot 707.12 07/27/2015 ANDREW NAVARRO MD Ot 250.00 07/27/2015 DOMINGO PRIETO APRN Ot M79.604 07/27/2015 DOMINGO PRIETO APRN Ot M79.604 08/12/2015 DOMINGO PRIETO TOMBSTONE CARVER Ot M79.604 08/19/2015 DOMINGO PRIETO TOMBSTONE CARVER Ot M79.604 PAIN IN RIGHT LEG 11/29/2015 MARIA FERNANDA CASTANO MD Ot 707.12 ULCER OF CALF 12/01/2015 MARIA FERNANDA CASTANO MD, Ot E11.622 TYPE 2 DIABETES MELLITUS WITH OTHER SKIN 12/01/2015 MARIA FERNANDA CASTANO MD, Ot I70.232 ATHSCL [place] ARTERIES OF RIGHT LEG W UL 12/01/2015 MARIA FERNANDA CASTANO MD, Ot I87.2 VENOUS INSUFFICIENCY (CHRONIC) (PERIPHER 12/01/2015 MARIA FERNANDA CASTANO MD, Ot S81.811A LACERATION W/O FOREIGN BODY, RIGHT LOWER 12/01/2015 RAMON MOTTA, ANDREW Parrish Ot 250.00 DIAB TIERRA WO COMPL, TYPE II OR UNSPEC TY 12/01/2015 MARIA FERNANDA CASTANO MD, Ot E11.622 TYPE 2 DIABETES MELLITUS WITH OTHER SKIN 12/01/2015 MARIA FERNANDA CASTANO MD, Ot I70.232 ATHSCL [place] ARTERIES OF RIGHT LEG W UL 12/01/2015 MARIA FERNANDA CASTANO MD, Ot I87.2 VENOUS INSUFFICIENCY (CHRONIC) (PERIPHER 12/01/2015 MARIA FERNANDA CASTANO MD, Ot S81.811A LACERATION W/O FOREIGN BODY, RIGHT LOWER 12/09/2015 MARIA FERNANDA CASTANO MD, Ot E11.22 TYPE 2 DIABETES MELLITUS W DIABETIC BLOCKER AND POLISHER GOLD WHEEL 12/09/2015 MARIA FERNANDA CASTANO MD, Ot E11.622 TYPE 2 DIABETES MELLITUS WITH OTHER SKIN 12/09/2015 MARIA FERNANDA CASTANO MD, Ot I87.2 VENOUS INSUFFICIENCY (CHRONIC) (PERIPHER 12/09/2015 MARIA FERNANDA CASTANO MD, Ot L97.212 NON-PRESSURE CHRONIC ULCER OF RIGHT CALF 12/09/2015 MARIA FERNANDA CASTANO MD, Ot N18.5 CHRONIC KIDNEY DISEASE, STAGE 5 12/09/2015 MARIA FERNANDA CASTANO MD, Ot T86.821 SKIN GRAFT (ALLOGRAFT) (AUTOGRAFT) FAILU 12/18/2015 MARIA FERNANDA CASTANO MD, Ot E11.622 TYPE 2 DIABETES MELLITUS WITH OTHER SKIN 12/18/2015 MARIA FERNANDA CASTANO MD, Ot I70.232 ATHSCL [place] ARTERIES OF RIGHT LEG W UL 12/18/2015 MARIA FERNANDA CASTANO MD, Ot I87.2 VENOUS INSUFFICIENCY (CHRONIC) (PERIPHER 12/18/2015 MARIA FERNANDA CASTANO MD, Ot S81.811A LACERATION W/O FOREIGN BODY, RIGHT LOWER 12/30/2015 MARIA FERNANDA CASTANO MD, Ot E11.22 TYPE 2 DIABETES MELLITUS W DIABETIC BLOCKER AND POLISHER GOLD WHEEL 12/30/2015 MARIA FERNANDA CASTANO MD, Ot E11.622 TYPE 2 DIABETES MELLITUS WITH OTHER SKIN 12/30/2015 MARIA FERNANDA CASTANO MD, Ot I87.2 VENOUS INSUFFICIENCY (CHRONIC) (PERIPHER 12/30/2015 MARIA FERNANDA CASTANO MD, Ot L97.212 NON-PRESSURE CHRONIC ULCER OF RIGHT CALF 12/30/2015 MARIA FERNANDA CASTANO MD, Ot N18.5 CHRONIC KIDNEY DISEASE, STAGE 5 12/30/2015 MARIA FERNANDA CASTANO MD, Ot T86.821 SKIN GRAFT (ALLOGRAFT) (AUTOGRAFT) FAILU 01/21/2016 MARIA FERNANDA CASTANO MD, Ot E11.622 TYPE 2 DIABETES MELLITUS WITH OTHER SKIN 01/21/2016 MARIA FERNANDA CASTANO MD, Ot I70.232 ATHSCL [place] ARTERIES OF RIGHT LEG W UL 01/21/2016 MARIA FERNANDA CASTANO MD, Ot I87.2 VENOUS INSUFFICIENCY (CHRONIC) (PERIPHER 01/21/2016 MARIA FERNANDA CASTANO MD, Ot S81.811A LACERATION W/O FOREIGN BODY, RIGHT LOWER 01/24/2016 MARIA FERNANDA CASTANO MD Ot E11.22 TYPE 2 DIABETES MELLITUS W DIABETIC BLOCKER AND POLISHER GOLD WHEEL 01/24/2016 MARIA FERNANDA CASTANO MD, Ot E11.622 TYPE 2 DIABETES MELLITUS WITH OTHER SKIN 01/24/2016 MARIA FERNANDA CASTANO MD, Ot I87.2 VENOUS INSUFFICIENCY (CHRONIC) (PERIPHER 01/24/2016 MARIA FERNANDA CASTANO MD, Ot L97.212 NON-PRESSURE CHRONIC ULCER OF RIGHT CALF 01/24/2016 MARIA FERNANDA CASTANO MD, Ot N18.5 CHRONIC KIDNEY DISEASE, STAGE 5 02/09/2016 MARIA FERNANDA CASTANO MD, Ot E11.22 TYPE 2 DIABETES MELLITUS W DIABETIC BLOCKER AND POLISHER GOLD WHEEL 02/09/2016 MARIA FERNANDA CASTANO MD, Ot E11.622 TYPE 2 DIABETES MELLITUS WITH OTHER SKIN 02/09/2016 MARIA FERNANDA CASTANO MD, Ot I87.2 VENOUS INSUFFICIENCY (CHRONIC) (PERIPHER 02/09/2016 MARIA FERNANDA CASTANO MD, Ot L97.212 NON-PRESSURE CHRONIC ULCER OF RIGHT CALF 02/09/2016 MARIA FERNANDA CASTANO MD, Ot N18.5 CHRONIC KIDNEY DISEASE, STAGE 5 02/27/2016 MARIA FERNANDA CASTANO MD, Ot E11.622 TYPE 2 DIABETES MELLITUS WITH OTHER SKIN 02/27/2016 MARIA FERNANDA CASTANO MD, Ot I70.232 ATHSCL [place] ARTERIES OF RIGHT LEG W UL 02/27/2016 MARIA FERNANDA CASTANO MD Ot I87.2 VENOUS INSUFFICIENCY (CHRONIC) (PERIPHER 02/27/2016 MARIA FERNANDA CASTANO MD, Ot 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, 02/27/2016 MARIA FERNANDA CASTANO MD, Ot L97.212 NON-PRESSURE CHRONIC ULCER OF RIGHT CALF 02/27/2016 MARIA FERNANDA CASTANO MD Ot N18.5 CHRONIC KIDNEY DISEASE, STAGE 5 02/27/2016 MARIA FERNANDA CASTANO MD, Ot S81.811A LACERATION W/O FOREIGN BODY, RIGHT LOWER 03/01/2016 MARIA FERNANDA CASTANO MD Ot E11.622 TYPE 2 DIABETES MELLITUS WITH OTHER SKIN 03/01/2016 MARIA FERNANDA CASTANO MD Ot I70.232 ATHSCL [place] ARTERIES OF RIGHT LEG W UL 03/01/2016 MARIA FERNANDA CASTANO MD Ot I87.2 VENOUS INSUFFICIENCY (CHRONIC) (PERIPHER 03/01/2016 MARIA FERNANDA CASTANO MD, Ot 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, 03/01/2016 MARIA FERNANDA CASTANO MD Ot L97.212 NON-PRESSURE CHRONIC ULCER OF RIGHT CALF 03/01/2016 MARIA FERNANDA CASTANO MD, Ot N18.5 CHRONIC KIDNEY DISEASE, STAGE 5 03/01/2016 MARIA FERNANDA CASTANO MD, Ot S81.811A LACERATION W/O FOREIGN BODY, RIGHT LOWER 03/01/2016 MARIA FERNANDA CASTANO MD Ot E11.622 TYPE 2 DIABETES MELLITUS WITH OTHER SKIN 03/01/2016 MARIA FERNANDA CASTANO MD Ot I70.232 ATHSCL [place] ARTERIES OF RIGHT LEG W UL 03/01/2016 MARIA FERNANDA CASTANO MD Ot I87.2 VENOUS INSUFFICIENCY (CHRONIC) (PERIPHER 03/01/2016 MARIA FERNANDA CASTANO MD, Ot S81.811A LACERATION W/O FOREIGN BODY, RIGHT LOWER 03/02/2016 MARIA FERNANDA CASTANO MD Ot E11.622 TYPE 2 DIABETES MELLITUS WITH OTHER SKIN 03/02/2016 MARIA FERNANDA CASTANO MD Ot I70.232 ATHSCL [place] ARTERIES OF RIGHT LEG W UL 03/02/2016 MARIA FERNANDA CASTANO MD Ot I87.2 VENOUS INSUFFICIENCY (CHRONIC) (PERIPHER 03/02/2016 MARIA FERNANDA CASTANO MD, Ot S81.811A LACERATION W/O FOREIGN BODY, RIGHT LOWER 03/15/2016 RAMON MOTTA, ANDREW Parrish Ot 250.00 DIAB TIERRA WO COMPL, TYPE II OR UNSPEC TY 03/15/2016 MARIA FERNANDA CASTANO MD, Ot E11.622 TYPE 2 DIABETES MELLITUS WITH OTHER SKIN 03/15/2016 MARIA FERNANDA CASTANO MD, Ot I70.232 ATHSCL [place] ARTERIES OF RIGHT LEG W UL 03/15/2016 MARIA FERNANDA CASTANO MD, Ot I87.2 VENOUS INSUFFICIENCY (CHRONIC) (PERIPHER 03/15/2016 MARIA FERNANDA CASTANO MD, Ot S81.811A LACERATION W/O FOREIGN BODY, RIGHT LOWER 03/15/2016 MARIA FERNANDA CASTANO MD, Ot E11.22 TYPE 2 DIABETES MELLITUS W DIABETIC BLOCKER AND POLISHER GOLD WHEEL 03/15/2016 MARIA FERNANDA CASTANO MD, Ot E11.622 TYPE 2 DIABETES MELLITUS WITH OTHER SKIN 03/15/2016 MARIA FERNANDA CASTANO MD, Ot I87.2 VENOUS INSUFFICIENCY (CHRONIC) (PERIPHER 03/15/2016 MARIA FERNANDA CASTANO MD, Ot L97.212 NON-PRESSURE CHRONIC ULCER OF RIGHT CALF 03/15/2016 MARIA FERNANDA CASTANO MD, Ot N18.5 CHRONIC KIDNEY DISEASE, STAGE 5 03/15/2016 MARIA FERNANDA CASTANO MD, Ot E11.22 TYPE 2 DIABETES MELLITUS W DIABETIC BLOCKER AND POLISHER GOLD WHEEL 03/15/2016 MARIA FERNANDA CASTANO MD, Ot E11.622 TYPE 2 DIABETES MELLITUS WITH OTHER SKIN 03/15/2016 MARIA FERNANDA CASTANO MD, Ot I87.2 VENOUS INSUFFICIENCY (CHRONIC) (PERIPHER 03/15/2016 MARIA FERNANDA CASTANO MD, Ot L97.212 NON-PRESSURE CHRONIC ULCER OF RIGHT CALF 03/15/2016 MARIA FERNANDA CASTANO MD, Ot N18.5 CHRONIC KIDNEY DISEASE, STAGE 5 03/15/2016 MARIA FERNANDA CASTANO MD, Ot T86.821 SKIN GRAFT (ALLOGRAFT) (AUTOGRAFT) FAILU 03/15/2016 MARIA FERNANDA CASTANO MD, Ot E11.622 TYPE 2 DIABETES MELLITUS WITH OTHER SKIN 03/15/2016 MARIA FERNANDA CASTANO MD, Ot I70.232 ATHSCL [place] ARTERIES OF RIGHT LEG W UL 03/15/2016 MARIA FERNANDA CASTANO MD, Ot I87.2 VENOUS INSUFFICIENCY (CHRONIC) (PERIPHER 03/15/2016 MARIA FERNANDA CASTANO MD, Ot S81.811A LACERATION W/O FOREIGN BODY, RIGHT LOWER 03/16/2016 MARIA FERNANDA CASTANO MD, Ot E11.9 TYPE 2 DIABETES MELLITUS WITHOUT COMPLIC 03/16/2016 MARIA FERNANDA CASTANO MD, Ot I87.2 VENOUS INSUFFICIENCY (CHRONIC) (PERIPHER 03/16/2016 MARIA FERNANDA CASTANO MD, Ot L97.212 NON-PRESSURE CHRONIC ULCER OF RIGHT CALF 03/16/2016 MARIA FERNANDA CASTANO MD, Ot N18.5 CHRONIC KIDNEY DISEASE, STAGE 5 03/27/2016 MARIA FERNANDA CASTANO MD, Ot E11.622 TYPE 2 DIABETES MELLITUS WITH OTHER SKIN 03/27/2016 MARIA FERNANDA CASTANO MD, Ot I70.232 ATHSCL [place] ARTERIES OF RIGHT LEG W UL 03/27/2016 MARIA FERNANDA CASTANO MD, Ot I87.2 VENOUS INSUFFICIENCY (CHRONIC) (PERIPHER 03/27/2016 MARIA FERNANDA CASTANO MD, Ot S81.811A LACERATION W/O FOREIGN BODY, RIGHT LOWER 03/29/2016 MARIA FERNANDA CASTANO MD, Ot E11.622 TYPE 2 DIABETES MELLITUS WITH OTHER SKIN 03/29/2016 MARIA FERNANDA CASTANO MD, Ot I70.232 ATHSCL [place] ARTERIES OF RIGHT LEG W UL 03/29/2016 MARIA FERNANDA CASTANO MD, Ot I87.2 VENOUS INSUFFICIENCY (CHRONIC) (PERIPHER 03/29/2016 MARIA FERNANDA CASTANO MD, Ot S81.811A LACERATION W/O FOREIGN BODY, RIGHT LOWER 03/31/2016 MARIA FERNANDA CASTANO MD Ot E11.9 TYPE 2 DIABETES MELLITUS WITHOUT COMPLIC 03/31/2016 MARIA FERNANDA CASTANO MD, Ot I87.2 VENOUS INSUFFICIENCY (CHRONIC) (PERIPHER 03/31/2016 MARIA FERNANDA CASTANO MD, Ot L97.212 NON-PRESSURE CHRONIC ULCER OF RIGHT CALF 03/31/2016 MARIA FERNANDA CASTANO MD, Ot N18.5 CHRONIC KIDNEY DISEASE, STAGE 5 04/05/2016 MARIA FERNANDA CASTANO MD, Ot E11.22 TYPE 2 DIABETES MELLITUS W DIABETIC BLOCKER AND POLISHER GOLD WHEEL 04/05/2016 MARIA FERNANDA CASTANO MD, Ot E11.622 TYPE 2 DIABETES MELLITUS WITH OTHER SKIN 04/05/2016 MARIA FERNANDA CASTANO MD, Ot I70.232 ATHSCL [place] ARTERIES OF RIGHT LEG W UL 04/05/2016 MARIA FERNANDA CASTANO MD, Ot I87.2 VENOUS INSUFFICIENCY (CHRONIC) (PERIPHER 04/05/2016 MARIA FERNANDA CASTANO MD, Ot 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, 04/05/2016 MARIA FERNANDA CASTANO MD, Ot L97.212 NON-PRESSURE CHRONIC ULCER OF RIGHT CALF 04/05/2016 EYAD MD, MARIA FERNANDA G Ot N18.5 CHRONIC KIDNEY DISEASE, STAGE 5 03/20/2018 FAIZA CASTAÑEDA APRN Ot Z12.31 ENCNTR SCREEN MAMMOGRAM FOR MALIGNANT NE 04/04/2018 FAIZA CASTAÑEDA APRN Ot Z12.31 ENCNTR SCREEN MAMMOGRAM FOR MALIGNANT NE 07/04/2018 ROS PEREIRA MD, Ot Z01.818 ENCOUNTER FOR OTHER PREPROCEDURAL EXAMIN 07/08/2018 RAMON MOTTA, ANDREW Parrish Ot 250.00 DIAB TIERRA WO COMPL, TYPE II OR UNSPEC TY 07/08/2018 ROS PEREIRA MD, Ot Z01.818 ENCOUNTER FOR OTHER PREPROCEDURAL EXAMIN 07/08/2018 ROS PEREIRA MD, Ot Z01.818 ENCOUNTER FOR OTHER PREPROCEDURAL EXAMIN 07/11/2018 ROS PEREIRA MD Ot E11.22 TYPE 2 DIABETES MELLITUS W DIABETIC BLOCKER AND POLISHER GOLD WHEEL 07/11/2018 ROS PEREIRA MD Ot E11.40 TYPE 2 DIABETES MELLITUS WITH DIABETIC N 07/11/2018 ROS PEREIRA MD Ot E66.01 MORBID (SEVERE) OBESITY DUE TO EXCESS CA 07/11/2018 ROS PEREIRA MD Ot E78.00 PURE HYPERCHOLESTEROLEMIA, UNSPECIFIED 07/11/2018 ROS PEREIRA MD Ot I10 ESSENTIAL (PRIMARY) HYPERTENSION 07/11/2018 ROS PEREIRA MD Ot K64.0 FIRST DEGREE HEMORRHOIDS 07/11/2018 ROS PEREIRA MD Ot M10.9 GOUT, UNSPECIFIED 07/11/2018 ROS PEREIRA MD Ot Z12.11 ENCOUNTER FOR SCREENING FOR MALIGNANT NE 07/11/2018 ROS PEREIRA MD Ot Z79.4 FORMULA TECHNICIAN (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 Results Test Result Range Bacteria identification in isolate by anaerobe culture - 02/02/16 15:41 Bacteria identification in isolate by anaerobe culture NOANA NRG Gram stain microscopy - 02/02/16 15:41 GRAM STAIN RESULT FEW WBC'S, NO BACTERIA OBSERVED NRG Bacteria identification in wound by culture - 02/02/16 15:41 Bacteria identification in wound by culture [id number] NRG FREE TEXT EXTERNAL SENSITIVITY REPORTED 02/04/16 8:10 NRG QUANTITY OF GROWTH Scant Growth NRG Bacterial susceptibility panel - 02/02/16 15:41 Oxacillin susceptibility test by minimum inhibitory concentration < = NRG Gentamicin susceptibility test by minimum inhibitory concentration < = NRG Clindamycin susceptibility test by minimum inhibitory concentration R NRG Erythromycin susceptibility test by minimum inhibitory concentration R NRG Trimethoprim/sulfamethoxazole susceptibility test by minimum inhibitoryconcentration <= NRG Vancomycin susceptibility test by minimum inhibitory concentration < = NRG Levofloxacin susceptibility test by minimum inhibitory concentration <= NRG Rifampin susceptibility test by minimum inhibitory concentration <= NRG Tetracycline susceptibility test by minimum inhibitory concentration 2 NRG Bacteria identification in isolate by anaerobe culture - 03/08/16 14:50 Bacteria identification in isolate by anaerobe culture NOANA NRG Gram stain microscopy - 03/08/16 14:50 GRAM STAIN RESULT NO WBC'S OR BACTERIA OBSERVED NRG Bacteria identification in wound by culture - 03/08/16 14:50 Bacteria identification in wound by culture NG NRG Complete blood count (CBC) with automated white blood cell (WBC) differential - 03/15/16 16:22 Blood leukocytes automated count (number/volume) 6.6 10*3/uL 4.3-11.0 Blood erythrocytes automated count (number/volume) 4.41 10*6/uL 4.35-5.85 Venous blood hemoglobin measurement (mass/volume) 12.5 g/dL 11.5-16.0 Blood hematocrit (volume fraction) 39 % 35-52 Automated erythrocyte mean corpuscular volume 88 [foz_us] 80-99 Automated erythrocyte mean corpuscular hemoglobin (mass per erythrocyte) 28 pg 25-34 Automated erythrocyte mean corpuscular hemoglobin concentration measurement ( mass/volume) 32 g/dL 32-36 Automated erythrocyte distribution width ratio 14.5 % 10.0-14.5 Automated blood platelet count (count/volume) 265 10*3/uL 130-400 Automated blood platelet mean volume measurement 8.7 [foz_us] 7.4-10.4 Automated blood neutrophils/100 leukocytes 71 % 42-75 Automated blood lymphocytes/100 leukocytes 19 % 12-44 Blood monocytes/100 leukocytes 8 % 0-12 Automated blood eosinophils/100 leukocytes 2 % 0-10 Automated blood basophils/100 leukocytes 1 % 0-10 Blood neutrophils automated count (number/volume) 4.7 10*3 1.8-7.8 Blood lymphocytes automated count (number/volume) 1.2 10*3 1.0-4.0 Blood monocytes automated count (number/volume) 0.5 10*3 0.0-1.0 Automated eosinophil count 0.1 10*3/uL 0.0-0.3 Automated blood basophil count (count/volume) 0.0 10*3/uL 0.0-0.1 Comprehensive metabolic panel - 03/15/16 16:22 Serum or plasma sodium measurement (moles/volume) 138 mmol/L 135-145 Serum or plasma potassium measurement (moles/volume) 4.0 mmol/L 3.6-5.0 Serum or plasma chloride measurement (moles/volume) 101 mmol/L 98-107 Carbon dioxide 28 mmol/L 21-32 Serum or plasma anion gap determination (moles/volume) 9 mmol/L 5-14 Serum or plasma urea nitrogen measurement (mass/volume) 37 mg/dL 7-18 Serum or plasma creatinine measurement (mass/volume) 2.13 mg/dL 0.60-1.30 Serum or plasma urea nitrogen/creatinine mass ratio 17 NRG Serum or plasma creatinine measurement with calculation of estimated glomerular filtration rate 24 NRG Serum or plasma glucose measurement (mass/volume) 174 mg/dL 70-105 Serum or plasma calcium measurement (mass/volume) 10.0 mg/dL 8.5-10.1 Serum or plasma total bilirubin measurement (mass/volume) 0.4 mg/dL 0.1-1.0 Serum or plasma alkaline phosphatase measurement (enzymatic activity/volume) 33 U/L 40-136 Serum or plasma aspartate aminotransferase measurement (enzymatic activity/ volume) 21 U/L 5-34 Serum or plasma alanine aminotransferase measurement (enzymatic activity/volume ) 22 U/L 0-55 Serum or plasma protein measurement (mass/volume) 7.2 g/dL 6.4-8.2 Serum or plasma albumin measurement (mass/volume) 3.7 g/dL 3.2-4.5 Hemoglobin A1c - 03/15/16 16:22 Hemoglobin A1c 8.1 % 4.5-6.2 Capillary blood glucose measurement by glucometer (mass/volume) - 07/10/18 10: 00 Capillary blood glucose measurement by glucometer (mass/volume) 78 mg/dL 70-110 Encounters ACCT No. Visit Date/Time Discharge Status Pt. Type Provider Facility Loc./Unit Complaint [id number] 07/10/2018 09:48:00 07/10/2018 11:45:00 DIS Outpatient ROS PEREIRA MD [facility] ENDO SCREENING [id number] 07/08/2018 10:45:00 07/08/2018 10:49:00 DIS Outpatient ROS PEREIRA MD [facility] PREOP COLONOSCOPY [id number] 03/19/2018 07:22:00 03/19/2018 23:59:59 CLS Outpatient FAIZA CASTAÑEDA APRN [facility] RAD SCREENING [id number] 04/05/2016 13:23:00 04/05/2016 16:00:00 DIS Outpatient MARIA FERNANDA CASTANO MD [facility] WOUNDCARE ULCER ON RT LEG [id number] 03/22/2016 11:09:00 03/27/2016 09:08:00 DIS Outpatient MARIA FERNANDA CASTANO MD [facility] WOUNDCARE ULCER ON RT LEG [id number] 03/15/2016 16:11:00 03/15/2016 23:59:59 CLS Outpatient MARIA FERNANDA CASTANO MD [facility] LAB NON PRESSURE ULCER RT CALF, CHANTE INSUFFICIENCY [id number] 02/23/2016 13:50:00 02/27/2016 00:01:00 DIS Outpatient MARIA FERNANDA CASTANO MD [facility] WOUNDCARE ULCER ON RT LEG [id number] 12/06/2015 10:28:00 12/06/2015 23:59:59 CLS Outpatient MARIA FERNANDA CASTANO MD [facility] RAD SKIN GRAFT CHRONIC KIDNEY DISEASE [id number] 12/01/2015 12:54:00 12/01/2015 23:59:59 CLS Outpatient MARIA FERNANDA CASTANO MD [facility] RAD ATHEROSCLEROSIS OF [place] ARTERIES OF R LEG [id number] 11/29/2015 13:55:00 11/29/2015 23:59:59 CLS Outpatient MARIA FERNANDA CASTANO MD [facility] LAB DM II, LACERATION W/O FOREIGN BODY,ATHEROSCLEROSIS [id number] 08/19/2015 14:15:00 08/19/2015 15:14:00 DIS Outpatient DOMINGO PRIETO APRN [facility] REHAB R LEG PAIN [id number] 06/03/2014 15:00:00 06/03/2014 23:59:59 CLS Preadmit ANDREW NAVARRO MD [facility] DSME DM [id number] 03/30/2014 18:00:00 06/02/2014 00:01:00 DIS Outpatient ANDREW NAVARRO MD [facility] DSMSeng DM [id number] 08/13/2013 13:00:00 08/13/2013 15:11:00 DIS Outpatient ANDREW NAVARRO MD [facility] WOUNDCARE ULCER ON RT LEG [id number] 12/06/2012 09:57:00 12/06/2012 23:59:59 CLS Outpatient [id number] 08/27/2018 16:22:00 ACT Emergency NOY LOPEZ MD [facility] ER AMS
[2018-08-27 16:42] LABS: ABG BASE EXCESS 3.7 MMOL/L (-2.5-2.5); ABG OXYGEN SATURATION 96 % (94-100); ABG PCO2 48 MMHG (35-45); ABG PH 7.39 (7.37-7.43); ABG PO2 77 MMHG (79-93)
[2018-08-27 16:43] LABS: ALLENS TEST POSITIVE; INSPIRED O2 2L; PATIENT TEMP 97.6; VENTILATOR NO
[2018-08-27] MEDS ORDERED: DEXTROSE 50% 50 ML (IMS) SYR ONE (17:00)
[2018-08-27] MEDS ORDERED: NS IV 1000 ML 1,000 ML IV ONE (17:07)
--- NOTE | 2018-08-27 17:09 | NUR ---
PT NOW ALERT, TALKING, AND MOVING ALL EXTREMITIES W/O DIFFICULTY. ALERT TO PERSON AND PLACE. PT REQUESTING INFORMATION TO HOW SHE GOT TO ED.
[2018-08-27 17:12] LABS: BASOPHILS % (AUTO) 0 % (0-10); EOSINOPHILS % (AUTO) 1 % (0-10); HEMATOCRIT 37 % (35-52); HEMOGLOBIN 11.8 G/DL (11.5-16.0); LYMPHOCYTES # (AUTO) 1.3 X 10^3 (1.0-4.0); LYMPHOCYTES % (AUTO) 21 % (12-44); MEAN CORPUSCULAR HEMOGLOBIN 30 PG (25-34); MEAN CORPUSCULAR HGB CONC 32 G/DL (32-36); MEAN CORPUSCULAR VOLUME 94 FL (80-99); MONOCYTES # (AUTO) 0.6 X 10^3 (0.0-1.0); MONOCYTES % (AUTO) 10 % (0-12); NEUTROPHILS # (AUTO) 4.3 X 10^3 (1.8-7.8); NEUTROPHILS % (AUTO) 68 % (42-75); PLATELET COUNT 201 10^3/uL (130-400); RED CELL DISTRIBUTION WIDTH 14.4 % (10.0-14.5); WHITE BLOOD COUNT 6.2 10^3/uL (4.3-11.0)
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
[2018-08-27] MEDS ORDERED: DEXTROSE 50% 50 ML (IMS) SYR IV ONE (17:15)
[2018-08-27 17:25] LABS: PROTHROMBIN TIME PATIENT 12.9 SEC (12.2-14.7)
--- NOTE | 2018-08-27 17:25 | NUR ---
PT FAMILY IN ROOM.
[2018-08-27 17:28] LABS: BILIRUBIN,URINE NEGATIVE (NEGATIVE); CLARITY,URINE SLIGHTLY CLOUDY; COLOR,URINE YELLOW; GLUCOSE, URINE (UA) NEGATIVE (NEGATIVE); KETONES,URINE NEGATIVE (NEGATIVE); LEUKOCYTE ESTERASE ,URINE 1+ (NEGATIVE); NITRITE,URINE POSITIVE (NEGATIVE); PH,URINE 5 (5-9); PROTEIN,URINE 2+ (NEGATIVE); UROBILINOGEN,URINE NORMAL (NORMAL)
[2018-08-27 17:33] LABS: ALBUMIN 3.2 GM/DL (3.2-4.5); BILIRUBIN,TOTAL 0.5 MG/DL (0.1-1.0); CREATININE SERUM 2.46 MG/DL (0.60-1.30); POTASSIUM 3.1 MMOL/L (3.6-5.0); TOTAL PROTEIN 6.1 GM/DL (6.4-8.2)
[2018-08-27 17:36] LABS: BACTERIA,URINE LARGE /HPF; SQUAMOUS EPITHELIAL CELL,UR RARE /HPF
[2018-08-27] MEDS ORDERED: D5 NS 1000 ML IV SOLUTION 1,000 ML IV STA (18:02)
[2018-08-27] MEDS ORDERED: cefTRIAXone FOR IV USE 1,000 MG in WATER (STERILE) FOR INJECTION 10 ML IV ONE (18:15)
[2018-08-27] MEDS ORDERED: OSELTAMIVIR 30 MG (TAMIFLU) CAPSULE PO ONE (18:15)
--- OUTSIDE RECORDS SUMMARY | 2018-08-27 18:56 | XMS REPORT | Encounter Summary ---
Author Author [facility] Organization [facility] Address Unknown Phone Unavailable Care Team Providers Care Dinkey Motor Operator Name Role Phone Rafael Maher MD PCP Kellie Ravi MD [phone] Debbie Todd DO Unavailable Nir Ravi MD [phone] Reason for Visit * Reason Comments Financial/Insurance BARIATRICS Questions Encounter Details Care Team Description Date Type Department Santosh-Lianna [place] Financial/Insurance Questions (BARIATRICS) 08/06/2018 Telephone [facility] [address] [address] Social History Date Tobacco Use Types Packs/Day [...] - Lianna Johnson - 08/06/2018 9:38 AM SHOOTER'S HELPER NO BARIATRIC BENEFITS ON PLAN Date verified: 08/06/18 Verification Source/Phone# (if applicable): [phone] MILADYSGILBERTOCALLIE Reference #: [id number] In Network for Facility: YES Ins Plan and ID#: [facility] NO BARIATRIC BENEFITS ON PLAN Group #:[id number] Subscriber name: BEVERLEY HUTCHINS Subscriber : [id number] Effective Date: 06/25/13 TER'S HELPER in this encounter Plan of Treatment Not on fileas of this encounter Visit Diagnoses Not on filein this encounter
--- OUTSIDE RECORDS SUMMARY | 2018-08-27 18:56 | XMS REPORT | Encounter Summary ---
Author Author [facility] Organization [facility] Address Unknown Phone Unavailable Care Team Providers Care Sports Physical Therapist Name Role Phone Rafael Maher MD PCP Kellie Ravi MD [phone] Debbie Todd DO Unavailable Nir Ravi MD [phone] Encounter Details Care Team Description Date Type Department Cassandra Sullivan RN 07/16/2018 Telephone [facility] [address] [facility] [address] [place] [address] Social History Date Tobacco Use Types Packs/Day [...] Cassandra Sullivan RN - 07/16/2018 11:59 AM PATIENT REGISTRATION MANAGER Called patient to update her on the status of her referral, left vm. ENT REGISTRATION MANAGER in this encounter Plan of Treatment Not on fileas of this encounter Visit Diagnoses Not on filein this encounter
--- OUTSIDE RECORDS SUMMARY | 2018-08-27 18:56 | XMS REPORT | Encounter Summary ---
Author Author [facility] Organization [facility] Address Unknown Phone Unavailable Care Team Providers Care Combination Welder Apprentice Name Role Phone Rafael Maher MD PCP Kellie Ravi MD [phone] Debbie Todd DO Unavailable Nir Ravi MD [phone] Reason for Visit * Reason Comments Financial/Insurance Selection Meeting Prep Questions Encounter Details Care Team Description Date Type Department Anel Walsh Financial/Insurance Questions (Selection Meeting Prep) 06/11/2018 Telephone [facility] 1st FLOOR [address] [place] [address] Social History Date Tobacco Use Types Packs/Day [...] - Anel Walsh - 06/11/2018 2:35 PM TEST DESK OPERATOR Selection Meeting Preparation Insurance has been verified though [employer]. As of 06/11/18 patient has active [facility]. Ref.#:[id number]. *Financial Assessment has been Approved *Written Auth Required for Listing *No Financial Concerns / Barriers. MM 06/11/18 DESK OPERATOR in this encounter Plan of Treatment Not on fileas of this encounter Visit Diagnoses Not on filein this encounter
--- OUTSIDE RECORDS SUMMARY | 2018-08-27 18:56 | XMS REPORT | Clinical Summary ---
Author Author [facility] Organization [facility] Address Unknown Phone Unavailable Care Team Providers Care Test Examiner Name Role Phone Rafael Maher MD PCP Kellie Ravi MD [phone] Debbie Todd DO Unavailable Nir Ravi MD [phone] Source Comments Some departments are not documenting in the electronic medical record. If you do not see the information that you expected, contact Release of Information in the Health Information Management department at [phone] for further assistance in locating additional records.[facility] Allergies No Known Allergies Medications End Date [...] Taken Vital Sign Reading 06/03/2018 11:08 AM PAPER RECLAIMING MACHINE OPERATOR Blood Pressure 114/68 06/03/2018 11:08 AM PAPER RECLAIMING MACHINE OPERATOR Pulse 73 06/03/2018 11:07 AM PAPER RECLAIMING MACHINE OPERATOR Temperature 36.3 C (97.3 F) - Respiratory Rate - 06/03/2018 11:07 AM PAPER RECLAIMING MACHINE OPERATOR Oxygen Saturation 97% - Inhaled Oxygen - Concentration 06/03/2018 11:07 AM PAPER RECLAIMING MACHINE OPERATOR Weight 129.6 kg (285 lb 11.2 oz) 06/03/2018 11:07 AM PAPER RECLAIMING MACHINE OPERATOR Height 170.2 cm (5' 7") 06/03/2018 11:07 AM PAPER RECLAIMING MACHINE OPERATOR Body Mass Index 44.75 Plan of Treatment [...] ID Type Phone Address Plan / Group [facility] xxxxxxxxx Indemnity CHOICE/CHO ICE PLUS Guarantor Name Account Relation to Date of Phone Billing Address Type Patient [id number] Personal/F Spouse 02/23/[address] am[place] (Home) [place] [address] AmersLauren suh L Transplant Self 1955 [address] (Home) [place] [address] Advance Directives Patient has advance care planning documents on file. For more information, please contact: [facility] [address] [place] [address]
--- OUTSIDE RECORDS SUMMARY | 2018-08-27 18:56 | XMS REPORT | Encounter Summary ---
Author Author [facility] Organization [facility] Address Unknown Phone Unavailable Care Team Providers Care Fiberglass Ski Maker Name Role Phone Rafael Maher MD PCP Kellie Ravi MD [phone] Debbie Todd DO Unavailable Nir Ravi MD [phone] Reason for Visit * Reason Comments Abstract Selection committee decision: aris Encounter Details Care Team Description Date Type Department Rashida Morris RN Abstract (Selection committee decision: aris ) 06/13/2018 Telephone [facility] 1st FLOOR [address] [place] [address] Social History Date Tobacco Use Types Packs/Day [...] Rashida Morris RN - 06/17/2018 8:28 AM RADIATION CONTROL HEALTH PHYSICIST Coordinator called patient to follow up regarding [...] that she looked into bariatric surgery in [place] however her insurance denied the claim. I [...] following up. I was told by the pharmacy scheduler that they have called the patient twice and have yet to hear back. I took the phone number and stated that I will inform patient of this detail. I returned call to [place] to review the above information and gave her the phone number to call back. She stated she will call today. I reviewed that her evaluation with kidney transplant is closed at this time, she was able to verbalize understanding. -Transplant tab switched to evaluation ineligible -Denial letter drafted and given to MA to mail ATION CONTROL HEALTH PHYSICIST in this encounter Plan of Treatment Not on fileas of this encounter Visit Diagnoses Not on filein this encounter
--- OUTSIDE RECORDS SUMMARY | 2018-08-27 18:56 | XMS REPORT | Encounter Summary ---
Author Author [facility] Organization [facility] Address Unknown Phone Unavailable Care Team Providers Care Supervisor Powdered Sugar Name Role Phone Rafael Maher MD PCP Kellie Ravi MD [phone] Debbie Todd DO Unavailable Nir Ravi MD [phone] Reason for Visit * Reason Comments Financial/Insurance Authorization for Kidney Eval Questions Encounter Details Care Team Description Date Type Department Anel Walsh Financial/Insurance Questions (Authorization for Kidney Eval) 06/03/2018 Telephone [facility] 1st FLOOR [address] [place], [place] [id number] Social History Date Tobacco Use Types Packs/Day [...] Telephone Encounter - Anel Walsh - 06/03/2018 1:55 PM ELEVATOR CONSTRUCTOR TRANSPLANT AUTHORIZATION PLANOPTUM/UHCAUTHORIZATION Phase 1 Evaluation Nurse Tile Professional Brigette left me a message APPROVING Kidney Eval Auth. Auth.#:[id number] Eff: 06/03/18 Exp.12/02/2018 NO Travel & Lodging for Recipient & Donor NCM: Brigette Phone.[phone] Ext. [phone] Written Authorization Required for LISTING will need the following -Clinicals -GFR -If patient is on Dialysis if she is what type. ATOR CONSTRUCTOR in this encounter Plan of Treatment Not on fileas of this encounter Visit Diagnoses Not on filein this encounter
--- OUTSIDE RECORDS SUMMARY | 2018-08-27 18:56 | XMS REPORT | Encounter Summary ---
Author Author [facility] Organization [facility] Address Unknown Phone Unavailable Care Team Providers Care Knife Setter Assembler Name Role Phone Rafael Maher MD PCP Kellie Ravi MD [phone] Debbie Todd DO Unavailable Nir Ravi MD [phone] Reason for Visit * Reason Comments Financial/Insurance Authorization for Kidney Eval Questions Encounter Details Care Team Description Date Type Department Anel Walsh Financial/Insurance Questions (Authorization for Kidney Eval) 06/13/2018 Telephone [facility] 1st FLOOR [address] [place], [place] [id number] Social History Date Tobacco Use Types Packs/Day [...] - Anel Walsh - 06/13/2018 6:41 AM CHIPPER OPERATOR TRANSPLANT AUTHORIZATION PLANOPTUM/UHCAUTHORIZATION Phase 1 Evaluation Called Nurse Case Manger Brigette left her a message with my contact information and patient's information and a brief message advising her to close the [employer] case per selection committee on 06/12/18 patient not a Transplant candidate at this time. NCM: Brigette Phone.[phone] Ext. [phone] PER OPERATOR in this encounter Plan of Treatment Not on fileas of this encounter Visit Diagnoses Not on filein this encounter
--- OUTSIDE RECORDS SUMMARY | 2018-08-27 18:56 | XMS REPORT | Encounter Summary ---
Author Author [facility] Organization [facility] Address Unknown Phone Unavailable Care Team Providers Care Axle Polisher Name Role Phone Rafael Maher MD PCP Kellie Ravi MD [phone] Debbie Todd DO Unavailable Nir Ravi MD [phone] Reason for Visit * Reason Comments Financial/Insurance Financial Assessment Questions Encounter Details Care Team Description Date Type Department Anel Walsh Financial/Insurance Questions (Financial Assessment) 06/04/2018 Telephone [facility] 1st FLOOR [address] [place] [address] Social History Date Tobacco Use Types Packs/Day [...] - Anel Walsh - 06/04/2018 11:08 AM ENTRY ENGINEER Financial Assessment Financial Assessment has been received, reviewed and APPROVED. Patient has adequate resources for pre and post transplant care. Patient and team have been notified. MM 06/04/18 Y ENGINEER in this encounter Plan of Treatment Not on fileas of this encounter Visit Diagnoses Not on filein this encounter
--- OUTSIDE RECORDS SUMMARY | 2018-08-27 18:56 | XMS REPORT | Encounter Summary ---
Author Author [facility] Organization [facility] Address Unknown Phone Unavailable Care Team Providers Care Notcher Name Role Phone Rafael Maher MD PCP Kellie Ravi MD [phone] Debbie Todd DO Unavailable Nir Ravi MD [phone] Reason for Visit * Reason Comments Financial/Insurance Financial Consult Questions Encounter Details Care Team Description Date Type Department Anel Walsh Financial/Insurance Questions (Financial Consult) 06/03/2018 Telephone [facility] 1st FLOOR [address] [place], [place] [phone] Social History Date Tobacco Use Types Packs/Day [...] - Anel Walsh - 06/03/2018 1:41 PM GAS LINE INSTALLER Financial Transplant Evaluation Anel Kothari met with Lauren Kate and her for insurance consult. There appear to be no coverage/insurance barriers to transplant with [facility] plan. Lauren expressed no insurance concerns [...] Cost Estimate and Financial Assessment. MM 06/03/18 LINE INSTALLER in this encounter Plan of Treatment Not on fileas of this encounter Visit Diagnoses Not on filein this encounter
--- OUTSIDE RECORDS SUMMARY | 2018-08-27 18:57 | XMS REPORT | Encounter Summary ---
Author Author [facility] Organization [facility] Address Unknown Phone Unavailable Care Team Providers Care Brick Maker Name Role Phone Rafael Maher MD PCP Kellie Ravi MD [phone] Debbie Todd DO Unavailable Nir Ravi MD [phone] Reason for Referral * Consult, Test & Treat (Routine) Referred By Contact Referred To Contact Status Reason Specialty Diagnoses / Procedures Linda Raya MD [address] [place] [address] Cmp Ukp Bariatric [address] [facility] [address] [place] [address] Closed Specialty Services Bariatrics / Diagnoses Required General Surgery Pre-transplant evaluation for end stage renal disease Reason for Visit * Reason Comments Kidney Evaluation * Transplant (Routine) Referred By Contact Referred To Contact Status Reason Specialty Diagnoses / Procedures Nir Ravi MD [address] [facility] [address] [place] [address] [facility] 1st FLOOR [address] [place] [address] Closed Transplant Diagnoses Surgery Pre-transplant evaluation for kidney transplant Encounter Details Care Team Description Date Type Department Matt Greene MD [address] [facility] [address] [place] [address] [phone] Valeria Heath MD Forwarding Address Unknown Retired Linda Raya MD [address] [place] [address] Pre-transplant evaluation for end stage renal disease ( Primary Dx); Type 2 diabetes mellitus with stage 4 chronic kidney disease, with long-term current use of insulin (HCC) 06/03/2018 Transplant [facility] Trans[facility]-Kidney[facility] 1st FLOOR [address] [place], [place] [id number] Social History Date Tobacco Use Types Packs/Day [...] Taken Vital Sign Reading 06/03/2018 10:45 AM PEAR PICKER Blood Pressure 160/57 06/03/2018 10:45 AM PEAR PICKER Pulse 63 06/03/2018 10:45 AM PEAR PICKER Temperature 36.3 C (97.3 F) - Respiratory Rate - 06/03/2018 10:45 AM PEAR PICKER Oxygen Saturation 97% - Inhaled Oxygen - Concentration 06/03/2018 10:45 AM PEAR PICKER Weight 129.6 kg (285 lb 11.2 oz) 06/03/2018 10:45 AM PEAR PICKER Height 170.2 cm (5' 7") 06/03/2018 10:45 AM PEAR PICKER Body Mass Index 44.75 in this encounter [...] Ami Hinds RN - 06/03/2018 11:00 AM PEAR PICKER You were seen by members of the [...] today. Thank you for partnering with [facility] for your care. If you should have any questions or concerns, please feel free to contact us. Rashida Morris RN Renal/Pancreas [employer] Librarian [facility] , fax [phone] PICKER in this encounter Progress Notes * Genoveva López - 06/03/2018 11:00 AM PEAR PICKER SOCIAL WORK PSYCHOSOCIAL ASSESSMENT Name: [facility] #: [id number] Date: 06/06/2018 Referral Source: Renal Transplant Team Referral Reason: Psychosocial evaluation for kidney transplant Date Referred: Source of Information: Patient and spouse Patient's Address: [address] [place] [address] Date(s) Interviewed: 06/03 Telephone #: [phone] (home) 1. PRESENT SITUATION: Sex: female Age: 62 y.o. Birthdate: 1955 Primary Language: East Timorese Ethnic Background: [employer]: (Optional) Diagnosis: ESRD, DM II Statement of Presenting Problem(s): Patient is a 62 y/o female who presents for evaluation for kidney transplant. She was diagnosed with CKD due to DM II three years ago. She is not on dialysis. She was initially referred to [facility] for transplant, but stated that she never [...] daily and that she follows with an chief controller center, Dr. Debbie Todd. Per outside records, her [...] and with ADL's. She was born in [place], [place] and has lived in [place] since about age 11. 3. 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 She has [facility] through Ty's employer for insurance. Sw explained Medicare coverage based on ESRD, patient will become eligible after initiating dialysis or at the time of transplant. Explained that dialysis unit/transplant team will complete 2728 form notifying Medicare of her eligibility and that she then must contact social security to enroll in this coverage, she voiced understanding. [facility] [place] and she denies any financial barriers related to medication access or to going without medications. She is not receiving any sources of financial assistance with her daily living expenses. 4. SUPPORTIVE RELATIONSHIPS/ COMMUNITY RESOURCES Caregivers: Ty Kate (spouse- [phone]) Living Donors: Children and one brother Comments: Patient and her have been for 44 years. They have one son ([place]) and one daughter ([place]) and six grandchildren. Her mother is living in [place] and her father is . She has [...] friend that has a second home in [place], where they are able to stay as needed during her post transplant recovery. Patient voiced understanding of the weekly to bi-weekly [facility] clinic appointments for the first few [...] transplant. She has health insurance coverage through [facility] to meet her medical needs following transplant. [...] into the medical record. Genoveva López LMSW PICKER * Phyllis Wilson - 06/03/2018 11:00 AM PEAR PICKER Renal Transplant Nutrition Evaluation Impressions: I see [...] breakfast, around 2pm patient and went to [facility] and she ate chicken breast, parmesan [...] therapy services. Phyllis Wilson, MS, RD, LD *[phone] PICKER * Ami Hinds RN - 06/03/2018 11:00 AM PEAR PICKER You were seen by: Linda Raya MD - referral to bariatric surg; no testing Matt Greene MD- central obesity ; ref to bariatric surg Anel Zambrano, Transplant Machine Cloth Measurer- +KAIA López BIODIESEL PRODUCT DEVELOPMENT MANAGER- no concerns Debbie Polk PharmD- no concerns [...] today. Thank you for partnering with [facility] for your care. If you should have any questions or concerns, please feel free to contact us. Rashida Morris RN Renal/Pancreas [employer] Librarian [facility] , fax [phone] PICKER * Debbie Polk, PHARMD - 06/03/2018 11:00 AM PEAR PICKER Pharmacy Kidney Transplant Evaluation I met with [...] were identified. Debbie Polk PharmD, BCPS Pager: [phone] Office: [phone] PICKER * Anel Walsh - 06/03/2018 11:00 AM PEAR PICKER Financial Transplant Evaluation Anel Kothari met with Lauren Kate and her for insurance consult. There appear to be no coverage/insurance barriers to transplant with [facility] plan. Lauren expressed no insurance concerns related [...] Cost Estimate and Financial Assessment. MM 06/03/18 PICKER * Linda Raya MD - 06/03/2018 11:00 AM PEAR PICKER 06/03/18 Lauren Ktae [id number] 1955 Nir Ravi [address] [facility] [address] [place] [address] Nir Ravi We had the [...] Number of children: 2 Years of education: [employer] Highest education level: Not on file Tobacco Use Smoking status: Never Smoker Smokeless tobacco: Never Used Substance and Sexual Activity Alcohol use: No Drug use: No Family hx Mother was diagnosed with stomach cancer at age of 84 Mother was diagnosed with DM in her 80s Denies kidney disease Father had Parkinson disease and had ND in his 60s Current Medications: calcitriol (ROCALTROL) [...] The patient will be contacted by the pre-taxicab coordinator with the final decision Thank you for this opportunity in allowing us to participate in the care of your patient. Sincerely, Linda Raya MD CC: Rafael Maher PICKER in this encounter Plan of Treatment Order [...]
--- OUTSIDE RECORDS SUMMARY | 2018-08-27 18:57 | XMS REPORT | Encounter Summary ---
Author Author [facility] Organization [facility] Address Unknown Phone Unavailable Care Team Providers Care Aircraft Systems Technician Name Role Phone Rafael Maher MD PCP Kellie Ravi MD [phone] Debbie Todd DO Unavailable Nri Ravi MD [phone] Reason for Visit * Reason Comments Financial/Insurance Authorization for Kidney Eval Questions Encounter Details Care Team Description Date Type Department Anel Walsh Financial/Insurance Questions (Authorization for Kidney Eval) 06/03/2018 Telephone [facility] 1st FLOOR [address] [place], [place] [id number] Social History Date Tobacco Use Types Packs/Day [...] - Anel Walsh - 06/03/2018 11:37 AM INSURANCE APPLICATION INVESTIGATOR TRANSPLANT AUTHORIZATION PLANOPTUM/UHCAUTHORIZATION Phase 1 Evaluation Called [...] of 06/03/18. Waiting pending call form nurse immigration case manager. Phone.[phone] Ext. [phone] MM 06/03/18 RANCE APPLICATION INVESTIGATOR in this encounter Plan of Treatment Not on fileas of this encounter Visit Diagnoses Not on filein this encounter
--- OUTSIDE RECORDS SUMMARY | 2018-08-27 18:57 | XMS REPORT | Encounter Summary ---
Author Author [facility] Organization [facility] Address Unknown Phone Unavailable Care Team Providers Care Hr Administrative Assistant Name Role Phone Rafael Maher MD PCP Kellie Ravi MD [phone] Debbie Todd DO Unavailable Nir Ravi MD [phone] Reason for Visit * Reason Comments Kidney Evaluation Encounter Details Care Team Description Date Type Department Matt Greene MD [address] [facility] [address] [place], [place] [id number] Pre-transplant evaluation for kidney transplant (Primary Dx) 06/03/2018 Transplant Center for Evaluation Transplantation-Kidney/[facility] 1st FLOOR [address] [place], [place] [phone] Social History Date Tobacco Use Types Packs/Day [...] Taken Vital Sign Reading 06/03/2018 11:08 AM TECHNICIAN CHEMICAL CLEANING Blood Pressure 114/68 06/03/2018 11:08 AM TECHNICIAN CHEMICAL CLEANING Pulse 73 06/03/2018 11:07 AM TECHNICIAN CHEMICAL CLEANING Temperature 36.3 C (97.3 F) - Respiratory Rate - 06/03/2018 11:07 AM TECHNICIAN CHEMICAL CLEANING Oxygen Saturation 97% - Inhaled Oxygen - Concentration 06/03/2018 11:07 AM TECHNICIAN CHEMICAL CLEANING Weight 129.6 kg (285 lb 11.2 oz) 06/03/2018 11:07 AM TECHNICIAN CHEMICAL CLEANING Height 170.2 cm (5' 7") 06/03/2018 11:07 AM TECHNICIAN CHEMICAL CLEANING Body Mass Index 44.75 in this encounter [...] Matt Greene MD - 06/03/2018 12:40 PM TECHNICIAN CHEMICAL CLEANING Date of Service: 06/03/2018 Subjective: Lauren Kate [...] in our selection committee. Matt Greene MD NICIAN CHEMICAL CLEANING in this encounter Plan of Treatment Not on fileas of this encounter Visit Diagnoses Diagnosis Pre-transplant evaluation for kidney transplant - Primary Other specified pre-operative examination in this encounter
--- OUTSIDE RECORDS SUMMARY | 2018-08-27 18:57 | XMS REPORT | Encounter Summary ---
Author Author [facility] Organization [facility] Address Unknown Phone Unavailable Care Team Providers Care Puppet Developer Name Role Phone Rafael Maher MD PCP Kellie Ravi MD [phone] Debbie Todd DO Unavailable Reason for Visit * Reason Comments Financial/Insurance Authorization for Kidney Eval Questions Encounter Details Care Team Description Date Type Department Anel Walsh Financial/Insurance Questions (Authorization for Kidney Eval) 05/30/2018 Telephone [facility] 1st FLOOR [address] [place] [address] Social History Date Tobacco Use Types Packs/Day Years Used Never Assessed Sex Assigned at Date Recorded Not on file Industry Job Start Date Occupation Not on file Not on file Not on file Travel End Travel History Travel Start No recent travel history available. as of this encounter Miscellaneous Notes * Telephone Encounter - Anel Walsh - 05/30/2018 12:59 PM HOG FEEDER TRANSPLANT AUTHORIZATION PLAN [facility] AUTHORIZATION Phase 1 Evaluation Nurse Case Sho [place] left me a message with her contact information and a brief message advising me that she is double checking on Transplant Benefits to make sure that she does not have a Transplant Limit. She will call me in the next couple of days with determination. Phone.[phone] Ext. [phone] MM 05/30/18 FEEDER in this encounter Plan of Treatment Not on fileas of this encounter Visit Diagnoses Not on filein this encounter
--- OUTSIDE RECORDS SUMMARY | 2018-08-27 18:57 | XMS REPORT | Clinical Summary ---
Author Author [facility] Organization [facility] Address Unknown Phone Unavailable Care Team Providers Care Mill Tender Name Role Phone PCP Unavailable Allergies Not on File Current Medications Not on file Active Problems Not on file Social History Tobacco Use Types Packs/Day Years Used Date Never Assessed Sex Assigned at Date Recorded Not on file Last Filed Vital Signs Not on file Plan of Treatment Health Maintenance Due Date Last Done Comments Hepatitis C Screen 1955 Td # 1955 Cervical Cancer Screening 1975 via Pap Smear Colorectal Screening via 2004 Colonoscopy Mammogram Screening 2004 Zoster Vaccine# (1 of 2) 2004 Influenza Vaccine (Season 04/25/2019 Ended) Results Not on filefrom Last 3 Months
--- OUTSIDE RECORDS SUMMARY | 2018-08-27 18:58 | XMS REPORT | Continuity of Care Document ---
Author Author [facility] Organization [facility] Address Unknown Phone Unavailable Allergies Active Description Code Type Severity Reaction Onset Reported/Identified Relationship to Patient Clinical Status Yes No Known Drug Allergies [id number] Drug Allergy Unknown N/A 07/08/2018 Medications There is no data. 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 Ot M79.604 PAIN IN RIGHT LEG 11/29/2015 MARIA FERNANDA CASTANO MD Ot 707.12 ULCER OF CALF 12/01/2015 MARIA FERNANDA CASTANO MD, Ot E11.622 TYPE 2 DIABETES MELLITUS WITH OTHER SKIN 12/01/2015 MARIA FERNANDA CASTANO MD, Ot I70.232 ATHSCL [place] ARTERIES OF RIGHT LEG W UL 12/01/2015 [...] MARIA FERNANDA CASTANO MD, Ot I70.232 ATHSCL [place] ARTERIES OF RIGHT LEG W UL 12/01/2015 MARIA FERNANDA CASTANO MD, Ot I87.2 VENOUS INSUFFICIENCY (CHRONIC) (PERIPHER 12/01/2015 MARIA FERNANDA CASTANO MD, Ot S81.811A LACERATION W/O FOREIGN BODY, RIGHT LOWER 12/09/2015 MARIA FERNANDA CASTANO MD, Ot E11.22 TYPE 2 DIABETES MELLITUS W DIABETIC 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 12/09/2015 MARIA FERNANDA CASTANO MD, Ot E11.622 [...] MARIA FERNANDA CASTANO MD, Ot I70.232 ATHSCL [place] ARTERIES OF RIGHT LEG W UL 12/18/2015 MARIA FERNANDA CASTANO MD, Ot I87.2 VENOUS INSUFFICIENCY (CHRONIC) (PERIPHER 12/18/2015 MARIA FERNANDA CASTANO MD, Ot S81.811A LACERATION W/O FOREIGN BODY, RIGHT LOWER 12/30/2015 MARIA FERNANDA CASTANO MD, Ot E11.22 TYPE 2 DIABETES MELLITUS W DIABETIC 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 12/30/2015 MARIA FERNANDA CASTANO MD, Ot E11.622 [...] 2 DIABETES MELLITUS WITH OTHER SKIN 01/21/2016 MARAI FERNANDA CASTANO MD, Ot I70.232 ATHSCL [place] ARTERIES OF RIGHT LEG W UL 01/21/2016 MARIA FERNANDA CASTANO MD, Ot I87.2 VENOUS INSUFFICIENCY (CHRONIC) (PERIPHER 01/21/2016 MARIA FERNANDA CASTANO MD, Ot S81.811A LACERATION W/O FOREIGN BODY, RIGHT LOWER 01/24/2016 MARIA FERNANDA CASTANO MD Ot E11.22 TYPE 2 DIABETES MELLITUS W DIABETIC 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 01/24/2016 MARIA FERNANDA CASTANO MD, Ot E11.622 TYPE 2 DIABETES MELLITUS WITH OTHER SKIN 01/24/2016 MARIA FERNANDA CASTANO MD, Ot I87.2 VENOUS INSUFFICIENCY (CHRONIC) (PERIPHER 01/24/2016 MARIA FERNANDA CASTANO MD, Ot L97.212 NON-PRESSURE CHRONIC ULCER OF RIGHT CALF 01/24/2016 MARIA FERNANDA CASTANO MD, Ot N18.5 CHRONIC KIDNEY DISEASE, STAGE 5 02/09/2016 MARIA FERNANDA CASTANO MD, Ot E11.22 TYPE 2 DIABETES MELLITUS W DIABETIC 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 02/09/2016 MARIA FERNANDA CASTANO MD, Ot E11.622 [...] MARIA FERNANDA CASTANO MD, Ot I70.232 ATHSCL [place] ARTERIES OF RIGHT LEG W UL 02/27/2016 [...] MARIA FERNANDA CASTANO MD Ot I70.232 ATHSCL [place] ARTERIES OF RIGHT LEG W UL 03/01/2016 [...] MARIA FERNANDA CASTANO MD Ot I70.232 ATHSCL [place] ARTERIES OF RIGHT LEG W UL 03/01/2016 MARIA FERNANDA CASTANO MD Ot I87.2 VENOUS INSUFFICIENCY (CHRONIC) (PERIPHER 03/01/2016 MARIA FERNANDA CASTANO MD, Ot S81.811A LACERATION W/O FOREIGN BODY, RIGHT LOWER 03/02/2016 MARIA FERNANDA CASTANO MD Ot E11.622 TYPE 2 DIABETES MELLITUS WITH OTHER SKIN 03/02/2016 MARIA FERNANDA CASTANO MD Ot I70.232 ATHSCL [place] ARTERIES OF RIGHT LEG W UL 03/02/2016 [...] MARIA FERNANDA CASTANO MD, Ot I70.232 ATHSCL [place] ARTERIES OF RIGHT LEG W UL 03/15/2016 MARIA FERNANDA CASTANO MD, Ot I87.2 VENOUS INSUFFICIENCY (CHRONIC) (PERIPHER 03/15/2016 MARIA FERNANDA CASTANO MD, Ot S81.811A LACERATION W/O FOREIGN BODY, RIGHT LOWER 03/15/2016 MARIA FERNANDA CASTANO MD, Ot E11.22 TYPE 2 DIABETES MELLITUS W DIABETIC 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 03/15/2016 MARIA FERNANDA CASTANO MD, Ot E11.622 TYPE 2 DIABETES MELLITUS WITH OTHER SKIN 03/15/2016 MARIA FERNANDA CASTANO MD, Ot I87.2 VENOUS INSUFFICIENCY (CHRONIC) (PERIPHER 03/15/2016 MARIA FERNANDA CASTANO MD, Ot L97.212 NON-PRESSURE CHRONIC ULCER OF RIGHT CALF 03/15/2016 MARIA FERNANDA CASTANO MD, Ot N18.5 CHRONIC KIDNEY DISEASE, STAGE 5 03/15/2016 MARIA FERNANDA CASTANO MD, Ot E11.22 TYPE 2 DIABETES MELLITUS W DIABETIC 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 03/15/2016 MARIA FERNANDA CASTANO MD, Ot E11.622 [...] MARIA FERNANDA CASTANO MD, Ot I70.232 ATHSCL [place] ARTERIES OF RIGHT LEG W UL 03/15/2016 [...] MARIA FERNANDA CASTANO MD, Ot I70.232 ATHSCL [place] ARTERIES OF RIGHT LEG W UL 03/27/2016 MARIA FERNANDA CASTANO MD, Ot I87.2 VENOUS INSUFFICIENCY (CHRONIC) (PERIPHER 03/27/2016 MARIA FERNANDA CASTANO MD, Ot S81.811A LACERATION W/O FOREIGN BODY, RIGHT LOWER 03/29/2016 MARIA FERNANDA CASTANO MD, Ot E11.622 TYPE 2 DIABETES MELLITUS WITH OTHER SKIN 03/29/2016 MARIA FERNANDA CASTANO MD, Ot I70.232 ATHSCL [place] ARTERIES OF RIGHT LEG W UL 03/29/2016 [...] E11.22 TYPE 2 DIABETES MELLITUS W DIABETIC 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 Results Test Result Range Bacteria identification in isolate by anaerobe culture - 02/02/16 15:41 Bacteria identification in isolate by anaerobe culture NOANA NRG Gram stain microscopy - 02/02/16 15:41 GRAM STAIN RESULT FEW WBC'S, NO BACTERIA OBSERVED NRG Bacteria identification in wound by culture - 02/02/16 15:41 Bacteria identification in wound by culture [id number] NRG FREE TEXT EXTERNAL SENSITIVITY REPORTED 02/04/16 [...] measurement by glucometer (mass/volume) 78 mg/dL 70-110 Arterial blood gas measurement - 08/27/18 16:36 Blood pCO2 48 mm[Hg] 35-45 Blood pO2 77 mm[Hg] 79-93 Arterial blood bicarbonate measurement (moles/volume) 29 mmol/L 23-27 Arterial blood base excess by calculation 3.7 mmol/L -2.5 -2.5 Arterial blood oxygen saturation measurement 96 % 94-100 * Inhaled oxygen flow rate 2L NRG Arterial blood pH measurement with patient temperature correction 7.39 7.37-7.43 Arterial blood carbon dioxide, total measurement (moles/volume) 30.0 mmol/L 21.0-31.0 Body site RIGHT RADIAL NRG Assessment of wrist artery patency prior to arterial puncture POSITIVE NRG Setting of ventilation mode NO NRG Measurement of body temperature 97.6 NRG Complete blood count (CBC) with automated white blood cell (WBC) differential - 08/27/18 17:00 Blood leukocytes automated count (number/volume) 6.2 10*3/uL 4.3-11.0 Blood erythrocytes automated count (number/volume) 3.97 10*6/uL 4.35-5.85 Venous blood hemoglobin measurement (mass/volume) 11.8 g/dL 11.5-16.0 Blood hematocrit (volume fraction) 37 % 35-52 Automated erythrocyte mean corpuscular volume 94 [foz_us] 80-99 Automated erythrocyte mean corpuscular hemoglobin (mass per erythrocyte) 30 pg 25-34 Automated erythrocyte mean corpuscular hemoglobin concentration measurement ( mass/volume) 32 g/dL 32-36 Automated erythrocyte distribution width ratio 14.4 % 10.0-14.5 Automated blood platelet count (count/volume) 201 10*3/uL 130-400 Automated blood platelet mean volume measurement 9.0 [foz_us] 7.4-10.4 Automated blood neutrophils/100 leukocytes 68 % 42-75 Automated blood lymphocytes/100 leukocytes 21 % 12-44 Blood monocytes/100 leukocytes 10 % 0-12 Automated blood eosinophils/100 leukocytes 1 % 0-10 Automated blood basophils/100 leukocytes 0 % 0-10 Blood neutrophils automated count (number/volume) 4.3 10*3 1.8-7.8 Blood lymphocytes automated count (number/volume) 1.3 10*3 1.0-4.0 Blood monocytes automated count (number/volume) 0.6 10*3 0.0-1.0 Automated eosinophil count 0.0 10*3/uL 0.0-0.3 Automated blood basophil count (count/volume) 0.0 10*3/uL 0.0-0.1 PT panel in platelet poor plasma by coagulation assay - 08/27/18 17:00 Prothrombin time (PT) in platelet poor plasma by coagulation assay 12.9 s 12.2-14.7 INR in platelet poor plasma or blood by coagulation assay 1.0 0.8-1.4 Activated partial thromboplastin time (aPTT) in platelet poor plasma bycoagulation assay - 08/27/18 17:00 Activated partial thromboplastin time (aPTT) in platelet poor plasma bycoagulation assay 27 s 24-35 Blood lactic acid measurement (moles/volume) - 08/27/18 17:00 Blood lactic acid measurement (moles/volume) 0.59 mmol/L 0.50-2.00 Comprehensive metabolic panel - 08/27/18 17:00 Serum or plasma sodium measurement (moles/volume) 140 mmol/L 135-145 Serum or plasma potassium measurement (moles/volume) 3.1 mmol/L 3.6-5.0 Serum or plasma chloride measurement (moles/volume) 103 mmol/L 98-107 Carbon dioxide 26 mmol/L 21-32 Serum or plasma anion gap determination (moles/volume) 11 mmol/L 5-14 Serum or plasma urea nitrogen measurement (mass/volume) 53 mg/dL 7-18 Serum or plasma creatinine measurement (mass/volume) 2.46 mg/dL 0.60-1.30 Serum or plasma urea nitrogen/creatinine mass ratio 22 NRG Serum or plasma creatinine measurement with calculation of estimated glomerular filtration rate 20 NRG Serum or plasma glucose measurement (mass/volume) 25 mg/dL 70-105 Serum or plasma calcium measurement (mass/volume) 10.0 mg/dL 8.5-10.1 Serum or plasma total bilirubin measurement (mass/volume) 0.5 mg/dL 0.1-1.0 Serum or plasma alkaline phosphatase measurement (enzymatic activity/volume) 19 U/L 40-136 Serum or plasma aspartate aminotransferase measurement (enzymatic activity/ volume) 28 U/L 5-34 Serum or plasma alanine aminotransferase measurement (enzymatic activity/volume ) 25 U/L 0-55 Serum or plasma protein measurement (mass/volume) 6.1 g/dL 6.4-8.2 Serum or plasma albumin measurement (mass/volume) 3.2 g/dL 3.2-4.5 CALCIUM CORRECTED 10.6 mg/dL 8.5-10.1 Complete urinalysis with reflex to culture - 08/27/18 17:20 Urine color determination YELLOW NRG Urine clarity determination SLIGHTLY CLOUDY NRG Urine pH measurement by test strip 5 5-9 Specific gravity of urine by test strip 1.025 1.016- 1.022 Urine protein assay by test strip, semi-quantitative 2+ NEGATIVE Urine glucose detection by automated test strip NEGATIVE NEGATIVE Erythrocytes detection in urine sediment by light microscopy NEGATIVE NEGATIVE Urine ketones detection by automated test strip NEGATIVE NEGATIVE Urine nitrite detection by test strip POSITIVE NEGATIVE Urine total bilirubin detection by test strip NEGATIVE NEGATIVE Urine urobilinogen measurement by automated test strip (mass/volume) NORMAL NORMAL Urine leukocyte esterase detection by dipstick 1+ NEGATIVE Automated urine sediment erythrocyte count by microscopy (number/high power field) NONE NRG Automated urine sediment leukocyte count by microscopy (number/high power field ) [HPF] NRG Bacteria detection in urine sediment by light microscopy LARGE NRG Squamous epithelial cells detection in urine sediment by light microscopy RARE NRG Crystals detection in urine sediment by light microscopy NONE NRG Casts detection in urine sediment by light microscopy NONE NRG Mucus detection in urine sediment by light microscopy NEGATIVE NRG Complete urinalysis with reflex to culture CULTURE PENDING NRG Capillary blood glucose measurement by glucometer (mass/volume) - 08/27/18 17: 59 Capillary blood glucose measurement by glucometer (mass/volume) 96 mg/dL 70-110 Encounters ACCT No. Visit Date/Time Discharge Status Pt. Type Provider Facility Loc./Unit Complaint [id number] 07/10/2018 09:48:00 07/10/2018 11:45:00 DIS Outpatient ROS PEREIRA MD [facility] ENDO SCREENING [id number] 07/08/2018 10:45:00 07/08/2018 10:49:00 DIS Outpatient ROS PEREIRA MD [facility] PREOP COLONOSCOPY [id number] 03/19/2018 07:22:00 03/19/2018 23:59:59 CLS Outpatient FAIZA CASTAÑEDA APRN [facility] RAD SCREENING [id number] 04/05/2016 13:23:00 04/05/2016 16:00:00 DIS Outpatient MARIA FERNANDA CASTANO MD [facility] WOUNDCARE ULCER ON RT LEG [id number] 03/22/2016 11:09:00 03/27/2016 09:08:00 DIS Outpatient MARIA FERNANDA CASTANO MD [facility] WOUNDCARE ULCER ON RT LEG [id number] 03/15/2016 16:11:00 03/15/2016 23:59:59 CLS Outpatient MARIA FERNANDA CASTANO MD [facility] LAB NON PRESSURE ULCER RT CALF, CHANTE INSUFFICIENCY [id number] 02/23/2016 13:50:00 02/27/2016 00:01:00 DIS Outpatient MARIA FERNANDA CASTANO MD [facility] WOUNDCARE ULCER ON RT LEG [id number] 12/06/2015 10:28:00 12/06/2015 23:59:59 CLS Outpatient MARIA FERNANDA CASTANO MD [facility] RAD SKIN GRAFT CHRONIC KIDNEY DISEASE [id number] 12/01/2015 12:54:00 12/01/2015 23:59:59 CLS Outpatient MARIA FERNANDA CASTANO MD [facility] RAD ATHEROSCLEROSIS OF [place] ARTERIES OF R LEG [id number] 11/29/2015 13:55:00 11/29/2015 23:59:59 CLS Outpatient MARIA FERNANDA CASTANO MD [facility] LAB DM II, LACERATION W/O FOREIGN BODY,ATHEROSCLEROSIS [id number] 08/19/2015 14:15:00 08/19/2015 15:14:00 DIS Outpatient DOMINGO PRIETO APRN [facility] REHAB R LEG PAIN [id number] 06/03/2014 15:00:00 06/03/2014 23:59:59 CLS [facility]readmit [facility] [id number] 03/30/2014 18:00:00 06/02/2014 00:01:00 DIS Outpatient ANDREW NAVARRO MD [facility] NEREYDA DM [id number] 08/13/2013 13:00:00 08/13/2013 15:11:00 DIS Outpatient RAMON MOTTA, ANDREW Parrish [facility] WOUNDCARE ULCER ON RT LEG [id number] 12/06/2012 09:57:00 12/06/2012 23:59:59 CLS Outpatient [id number] 08/27/2018 18:05:00 ACT Inpatient ZAINAB MOTTA, EJ Palmer [facility] 4TH UTI,ACUTE OR CHRONIC RENAL FAILURE
--- NOTE | 2018-08-27 19:50 | NUR ---
ANGELA HUTCHINS admitted to room 433-1, with an admitting diagnosis of [], on 08/27/18 from [place] via [], accompanied by [].ANGELA HUTCHINS introduced to surroundings, call light, bed controls, phone, TV, temperature control, lights, meal times, smoking policy, visitor policy, side rail policy, bathrooms and showers. Patient Rights given to patient in the handbook. ANGELA HUTCHINS verbalizes understanding that [facility] is not responsible for the loss or damage to any personal effects or valuables that are kept in the patients posession during their hospitalization. The following Patient Care Plans were discussed with the []: Discharge Planning, [],[], and []. ANGELA HUTCHINS verbalizes understanding of Interdisciplinary Patient Education. Patient and/or family were informed about the Rapid Response Team and its purpose.
[2018-08-27] MEDS ORDERED: NS IV 1000 ML 1,000 ML ONE (19:57)
[2018-08-27] MEDS ORDERED: CATHETER FLUSH 10 ML SYR IV PRN (20:15)
[2018-08-27] MEDS: NS IV 1000 ML 1,000 ML IV SCH (20:20)
[2018-08-27 20:56] VITALS: BP 162/79
[2018-08-27] MEDS ORDERED: RT-ALBUTEROL SULF 2.5 MG/3 ML PRE-MIX VIAL INH PRN (21:30)
--- NOTE | 2018-08-27 21:58 | Diagnostic Imaging Report ---
INDICATION: Central line. FINDINGS: Right IJ catheter is at the lower SVC. There is no pneumothorax. The lungs are clear. IMPRESSION: Catheter in the lower SVC with no pneumothorax. Dictated by: Dictated on workstation # [id number]
[2018-08-27 22:12] VITALS: BP 182/80
[2018-08-28] VITALS: BP 122/56
[2018-08-28] MEDS: ACETAMINOPHEN 500 MG TAB (TYLENOL) PO PRN ×2 (00:46→08:58)
[2018-08-28 04:08] VITALS: BP 118/64
[2018-08-28] MEDS: NS IV 1000 ML 1,000 ML IV SCH ×2 (04:15→13:04)
[2018-08-28] MEDS: inSUlin ASPART (NovoLOG) 1 UNIT/0.01 ML (CHARGE PER UNIT) SC SCH ×4 (05:25→21:51)
[2018-08-28 06:08] LABS: BASOPHILS % (AUTO) 0 % (0-10); EOSINOPHILS # (AUTO) 0.2 10^3/uL (0.0-0.3); EOSINOPHILS % (AUTO) 3 % (0-10); HEMATOCRIT 36 % (35-52); HEMOGLOBIN 11.3 G/DL (11.5-16.0); LYMPHOCYTES # (AUTO) 1.3 X 10^3 (1.0-4.0); LYMPHOCYTES % (AUTO) 22 % (12-44); MEAN CORPUSCULAR HEMOGLOBIN 30 PG (25-34); MEAN CORPUSCULAR HGB CONC 31 G/DL (32-36); MEAN CORPUSCULAR VOLUME 95 FL (80-99); MEAN PLATELET VOLUME 9.2 FL (7.4-10.4); MONOCYTES # (AUTO) 0.6 X 10^3 (0.0-1.0); MONOCYTES % (AUTO) 10 % (0-12); NEUTROPHILS # (AUTO) 3.6 X 10^3 (1.8-7.8); NEUTROPHILS % (AUTO) 64 % (42-75); PLATELET COUNT 184 10^3/uL (130-400); RED CELL DISTRIBUTION WIDTH 14.2 % (10.0-14.5); WHITE BLOOD COUNT 5.7 10^3/uL (4.3-11.0)
[2018-08-28 06:40] LABS: ALBUMIN 3.2 GM/DL (3.2-4.5); BILIRUBIN,TOTAL 0.3 MG/DL (0.1-1.0); CALCIUM 9.5 MG/DL (8.5-10.1); CREATININE SERUM 2.36 MG/DL (0.60-1.30); POTASSIUM 3.8 MMOL/L (3.6-5.0)
[2018-08-28] MEDS ORDERED: FLU QUADRIvalent (5+ YOA) 2018-2019 (AFLURIA) 0.5 ML IM ONE (07:30)
[2018-08-28 08:00] VITALS: BP 118/64
[2018-08-28] MEDS: OSELTAMIVIR 30 MG (TAMIFLU) CAPSULE PO SCH ×2 (08:35→21:48)
--- NOTE | 2018-08-28 09:37 | History & Physical-Hospitalist ---
History of Present Illness HPI/Chief Complaint Chief complaint: Shortness of breath and wheezing. HPI: This is a 63yoWF clinic patient of Dr. 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 She was found to have a UTI with dehydration and hypoxia due to influenza with wheezing on exam. She was placed on gentle IV fluids because creatinine 2.4 repeat was 2.3. At this current time pt feels very sore and has pain everywhere especially on her right side because of the difficulty getting out of the car. She will have PT and OT ordered and I will continue the nebulizer treatments but overall she is able to eat well for her breakfast. Her is at the bedside. Denies any nausea. No diarrhea or vomiting. I restarted all of her home meds but I am holding her oral hypoglycemic agents due to hypoglycemia. Source: patient Exam Limitations: no limitations Date Seen 08/28/18 Time Seen by a Provider: 10:30 Attending Physician Frank Kincaid MD PCP Rafael Maher MD Referring Physician Date of Admission Aug 27, 2018 at 18:05 Home Medications & Allergies Home Medications Reviewed patient Home Medication Reconciliation performed by pharmacy medication reconciliations altitude chamber technician and/or nursing. Patients Allergies have been reviewed. Allergies Allergies Coded Allergies No Known Drug Allergies (Unverified07/08/18) Past Maufztf-Gpsqlz-Ngxsqz Hx Past Med/Social Hx: Reviewed Nursing Past Med/Soc Hx, Reviewed and Corrections made Patient Social History Marrital Status: Alcohol Use: Denies Use Recreational Drug Use: No Smoking Status: Smoker Current Status [facility] 2nd Hand Smoke Exposure: No Physical Abuse Screen: No Sexual Abuse: No Recent Foreign Travel: No Contact w/other who traveled: No Recent Hopitalizations: No Recent Infectious Disease Expo: No Immunizations Up To Date Date of Influenza Vaccine: Mar 25, 2011 Seasonal Allergies Seasonal Allergies: No Past Medical History Cardiac: Hypertension Reproductive: No Sexually Transmitted Disease: No HIV/AIDS: No Genitourinary: Renal Failure Endocrine: Diabetes, Non-Insulin dep Loss of Vision: Bilateral Hearing Impairment: Denies History of Blood Disorders: No Adverse Reaction to Blood Cat: No (N/A) Family History Reviewed Nursing Family Hx No Pertinent Family Hx Review of Systems Constitutional: see HPI, chills, dizziness, fever, malaise, weakness EENTM: no symptoms reported Respiratory: cough, dyspnea on exertion Cardiovascular: no symptoms reported Gastrointestinal: no symptoms reported Genitourinary: decreased output Musculoskeletal: back pain Skin: no symptoms reported Psychiatric/Neurological: No Symptoms Reported All Other Systems Reviewed Negative Unless Noted: Yes Physical Exam Physical Exam Vital Signs Vital Signs - First Documented 08/27/18 08/27/18 16:22 20:56 Temp 97.6 Pulse 79 Resp 22 B/P (MAP) 126/93 (104) Pulse Ox 96 O2 Delivery Nasal Cannula O2 Flow Rate 2.00 FiO2 24 Capillary Refill : Less Than 3 Seconds Height, Weight, BMI Height: 5'7.00" Weight: 297lbs. 0.4oz. 134.287256ed; 46.5 BMI Method:Estimated General Appearance: No Apparent Distress, WD/WN, Chronically ill, Obese Eyes: Right Eye Normal Inspection, Right Eye PERRL HEENT: PERRL/EOMI, TMs Normal, Normal ENT Inspection, Pharynx Normal, Moist Mucous Membranes Neck: Full Range of Motion, Normal Inspection, Non Tender Respiratory: Chest Non Tender, No Accessory Muscle Use, No Respiratory Distress , Decreased Breath Sounds, Wheezing Cardiovascular: Regular Rate, Rhythm, No Edema, No Gallop, No JVD, No Murmur, Normal Peripheral Pulses Gastrointestinal: Normal Bowel Sounds, No Organomegaly, No Pulsatile Mass, Non Tender, Soft Back: Normal Inspection, No CVA Tenderness, No Vertebral Tenderness Extremity: Normal Capillary Refill, Normal Inspection, Normal Range of Motion, Non Tender, No Calf Tenderness, No Pedal Edema Neurologic/Psychiatric: Alert, Oriented x3, No Motor/Sensory Deficits, Normal Mood/Affect Skin: Normal Color, Warm/Dry Lymphatic: No Adenopathy Results Results/Procedures Labs Laboratory Tests 08/27/18 17:00 08/28/18 05:50 Patient resulted labs reviewed. Assessment/Plan Admission Diagnosis Assessment: Wheezing AMS Influenza A Acute on chronic renal failure DM HTN Obesity Plan: Continue IVF but decrease rate Hold OHA but restart most of home meds Admission Status: Inpatient Order (span 2 midnights) Reason for Inpatient Admission: Severe wheezing with acute on chronic renal failure with influenza A Diagnosis/Problems Diagnosis/Problems (1) Influenza A Status: Acute (2) Hypoglycemia associated with diabetes Status: Acute (3) Urinary tract infection Status: Acute Qualifiers: Urinary tract infection type: acute cystitis Hematuria presence: without hematuria Qualified Codes: N30.00 - Acute cystitis without hematuria (4) Acute on chronic renal failure Status: Acute Qualifiers: Acute renal failure type: unspecified Chronic kidney disease stage: unspecified stage Qualified Codes: N17.9 - Acute kidney failure, unspecified; N18.9 - Chronic kidney disease, unspecified (5) Obesity Status: Chronic Qualifiers: Obesity type: due to excess calories Obesity classification: adult class 3 (BMI >= 40) Serious obesity comorbidity presence: with serious comorbidity Body mass index: BMI 45.0-49.9 Qualified Codes: E66.01 - Morbid (severe) obesity due to excess calories; Z68.42 - Body mass index (BMI) 45.0-49.9, adult (6) Hypertension Status: Chronic Qualifiers: Hypertension type: essential hypertension Qualified Codes: I10 - Essential (primary) hypertension (7) Diabetes mellitus Status: Chronic Qualifiers: Diabetes mellitus type: type 2 Diabetes mellitus mcfp insulin use: with mcfp use Diabetes mellitus complication status: with kidney complications Diabetes mellitus complication detail: with chronic kidney disease Chronic kidney disease stage: stage 3 (moderate) Qualified Codes: E11.22 - Type 2 diabetes mellitus with diabetic chronic kidney disease; N18.3 - Chronic kidney disease, stage 3 (moderate); Z79.4 - [facility] (current) use of insulin Clinical Quality Measures DVT/VTE Risk/Contraindication: Risk Factor Score Per Nursin RFS Level Per Nursing on Admit: 4+=Very High NANDA KIDD DO Aug 28, 2018 09:37
[2018-08-28] MEDS: RT-ALBUTEROL SULF 2.5 MG/3 ML PRE-MIX VIAL INH SCH ×2 (09:44→19:23)
[2018-08-28] MEDS ORDERED: DOXY100C2 PO (10:26)
[2018-08-28] MEDS ORDERED: LIRA0.6P3 SC (10:26)
[2018-08-28] MEDS ORDERED: METO-370 PO (10:26)
[2018-08-28] MEDS ORDERED: BENZ200C51 PO (10:26)
--- NOTE | 2018-08-28 10:31 | NUR ---
SPOKE WITH THE PATIENT ABOUT HER MEDICATIONS. SHE HAD HER BOTTLES WITH HER AND VERIFIED HOW SHE TAKES THEM. HER GLIPIZIDE WAS FILLED FOR 1 TAB BID HOWEVER SHE STATES SHE NOW ONLY TAKES 1/2 TAB BID. IN ADDITION TO WHAT IS SHOWN ON THE EXT MED HX SHE HAS THE FOLLOWING BOTTLES: BASAGLAR 3-- BENZONATATE 200MG TID #30 -11-10 DOXYCYCLINE HYCLATE 100MG BID X 10 DAYS #20 06-24-18 GABAPENTIN 100MG TID #270 06-04-18 PIOGLITAZONE 15MG DAILY #90 06-03-18 LOSARTAN 50MG DAILY #90 PATIENT ALSO PICKED UP A NEBULIZER SOLUTION FROM [facility] YESTERDAY, SHE HAS NOT STARTED THIS BECAUSE SHE HAS NOT BEEN ABLE TO GET THE NEBULIZER MACHINE AT THIS TIME.
[2018-08-28] MEDS ORDERED: BALO40TA PO (10:42)
[2018-08-28] MEDS ORDERED: ALBU2.5V4 NEB (10:45)
[2018-08-28] MEDS ORDERED: NON-FORMULARY MEDICATION 1 EA EA (Benzonatate 200 MG) PO PRN (11:15)
--- NOTE | 2018-08-28 11:58 | Physical Therapy Evaluation ---
PT Evaluation-General Medical Diagnosis Admission Date Aug 27, 2018 at 18:05 Medical Diagnosis: UTI, Acute on Chronic Failure, Influenza A Onset Date: Aug 27, 2018 Therapy Diagnosis Therapy Diagnosis: decreased mobility Height/Weight Height (Feet): 5 Height (Inches): 7.00 Weight (Pounds): 297 Weight (Ounces): 0.4 Precautions Precautions/Isolations: Droplet Isolation Weight Bear Status Right Lower Extremity: Right Weight Bearing/Tolerated Left Lower Extremity: Left Weight Bearing/Tolerated Referral Physician: Dr. Pham Reason for Referral: Evaluation/Treatment Medical History Pertinent Medical History: DM, HTN Additional Medical History Renal Failure, Obesity Current History POV to ER, pt was extricated from the car, pt unable to stand and unable to answer questions. Reviewed History: Yes Social History Home: Single Level Current Living Status: Spouse Entry Into Home: Stairs With Railing PT Steps Into Home: 2 PT Steps Inside Home: 2 Prior/Core FIM Prior Level of Function Therapy Code Descriptions/Definitions Functional [place] Measure: 0=Not Assessed/NA 4=Minimal Assistance 1=Total Assistance 5=Supervision or Setup 2=Maximal Assistance 6=Modified [place] 3=Moderate Assistance 7=Complete [place] Therapy Quality Codes: 6 Independent with activity with or without an assistive device 5 Patient requires set up or clean up by helper. Patient completes activity by themselves 4 Supervision or touching assist (CGA). Emerson provide cues , steadying assist 3 The helper provides less than half the effort to complete the activity 2 The helper provides more than half the effort to complete the activity 1 Dependent. The helper does all the effort to complete an activity 7 Patient refused to complete or attempt activity 9 The patient did not perform the activity before the current illness or injury 88 Not attempted due to Medical conditions or safety concerns Functional Abilities and Goals: Independent: Patient completed the activities by him/herself, with or without an assistive device, with no assistance from a helper. Needed Some Help: Patient needed partial assistance from another person to complete activities. Dependent: A helper completed the activities for the patient. Unknown: Not Applicable: Bed Mobility: 7 Transfers (B,C,W/C) (FIM): 7 Gait: 7 Indoor Mobility (Ambulation): Independent Stairs: Independent Prior Devices Use: None PT Evaluation-Current Subjective Pt in bed with in room and agrees to PT. Pt reports her R knee hurts probably due to falling and the R shoulder hurts due to the IV in her neck. Pain Numeric Pain Scale: 8 Location: Right Location Body Site: Knee Pt/Family Goals Pt to return home. Objective Patient Orientation: Person, Place, Situation Attachments: Oxygen (1L), Whyte Catheter, IV ROM/Strength ROM Lower Extremities NT Strength Lower Extremities NT Integumentary/Posture Bladder Incontinence: Whyte Cath Neuromuscular (Tone, Coordination, Reflexes) NT Sensory Vision: Wears Glasses Hearing: Functional Transfers Therapy Code Descriptions/Definitions Functional [place] Measure: 0=Not Assessed/NA 4=Minimal Assistance 1=Total Assistance 5=Supervision or Setup 2=Maximal Assistance 6=Modified [place] 3=Moderate Assistance 7=Complete [place] Transfers (B, C, W/C) (FIM): 4 Supine to/from Sit: 4 Sit to/from Stand: 7 Gait Mode of Locomotion: Walk Anticipated Mode of Locomotion: Walk Gait (FIM): 2 Distance (FIM): 1=844-86 ft Distance: 60' Gait Level of Assist: 7 Gait Persons Needed: 1 Gait Assistive Device: None Balance Sitting Static: Good Sitting Dynamic: Good Standing Static: Good Standing Dynamic: Good Assessment/Needs Pt required min A to get from supine to EOB. Pt transfers indep. Pt able to amb 60' with no AD within room due to precautions, SPT only assisted with IV pole and oxygen. Pt returned to bed and was indep with bed mobility and transfers into bed. Due to c/o of knee pain SPT palpated jt line with pain just medial to patella. SPT attempted to perform Sebas test but pt was tensed the whole test and there was no popping or clicking, just pain. R knee appears to have minimal-no swelling, and there is no bruising on R knee. Pt and agree that pt does not need PT to help with amb. SPT instructs pt to continue to get up and move around room as much as possible. Pt and verbally agree to comply. PT will not pick pt up for skilled services. Rehab Potential: Good Post Rehab Potential-Barriers: co-morbidities PT Plan Problem List Problem List: Activity Tolerance Treatment/Plan Treatment Plan: Discontinue PT Treatment Plan: Other Treatment Duration: Aug 28, 2018 Frequency: Estimated Hrs Per Day: Other Patient and/or Family Agrees t: Yes Safety Risks/Education Patient Education: Gait Training, Transfer Techniques, Correct Positioning, Safety Issues Teaching Recipient: Patient, Family Teaching Methods: Demonstration, Discussion Discharge Recommendations Plan DC Time/GCodes Time In: 1133 Time Out: 1149 Total Billed Treatment Time: 16 Total Billed Treatment 1 visit EVL 16 min TEAGAN DAVIS PT Aug 28, 2018 11:57
[2018-08-28 12:00] VITALS: BP 123/60
--- NOTE | 2018-08-28 12:53 | NUR ---
Pt is [employer]alian and declines sacraments but took ashes for Ryan Sunday.
[2018-08-28] MEDS: GABAPENTIN 100 MG (NEURONTIN) CAP PO SCH ×2 (13:04→21:48)
--- NOTE | 2018-08-28 14:12 | Occ Therapy Progress Note ---
Therapy Progress Note Order received for OT eval and treat. Chart review completed. Attempted OT evaluation at 1400. Pt resting in bed with visitors present. Pt declined to participate in therapy, states she has been up in room and does not feel she is having any difficulty. Pt states she does not have any concerns at this time. Will discontinue OT. Discussed with RN. 1, visit KENDRA ROSS OT Aug 28, 2018 14:12
[2018-08-28 16:00] VITALS: BP 139/64
[2018-08-28] MEDS ORDERED: glipiZIDE 5 MG (GLUCOTROL) TAB PO SCH (16:30)
[2018-08-28] MEDS: cefTRIAXone 1,000 MG/SWFI 10 ML IV PUSH IV SCH ×2 (18:11)
[2018-08-28] MEDS ORDERED: PATIENT MAY USE OWN MED,SINGLE MED PO SCH (18:30)
[2018-08-28 20:15] VITALS: BP 145/66
[2018-08-28] MEDS ORDERED: NON-FORMULARY MEDICATION 1 EA EA (Glipizide 5 MG) PO SCH (21:00)
[2018-08-28] MEDS: inSUlin DETERMIR 1 UNIT/0.01 ML (LEVEMIR) CHARGE PER UNIT SQ SCH (21:48)
[2018-08-28] MEDS: meTOproloL SUCCINATE 50 MG (TOPROL XL) TAB PO SCH (21:48)
[2018-08-29] VITALS: BP 131/58
[2018-08-29] MEDS: NS IV 1000 ML 1,000 ML IV SCH (04:03)
[2018-08-29 04:46] VITALS: BP 143/64
[2018-08-29] MEDS: CALCITRIOL 0.25 MCG (ROCALTROL) CAPSULE PO SCH (06:13)
[2018-08-29] MEDS: inSUlin ASPART (NovoLOG) 1 UNIT/0.01 ML (CHARGE PER UNIT) SC SCH ×4 (06:13→20:25)
[2018-08-29 06:28] LABS: BASOPHILS % (AUTO) 1 % (0-10); EOSINOPHILS # (AUTO) 0.1 10^3/uL (0.0-0.3); EOSINOPHILS % (AUTO) 3 % (0-10); HEMATOCRIT 32 % (35-52); HEMOGLOBIN 10.3 G/DL (11.5-16.0); LYMPHOCYTES # (AUTO) 0.8 X 10^3 (1.0-4.0); LYMPHOCYTES % (AUTO) 21 % (12-44); MEAN CORPUSCULAR HEMOGLOBIN 30 PG (25-34); MEAN CORPUSCULAR HGB CONC 32 G/DL (32-36); MEAN CORPUSCULAR VOLUME 94 FL (80-99); MEAN PLATELET VOLUME 9.2 FL (7.4-10.4); MONOCYTES # (AUTO) 0.3 X 10^3 (0.0-1.0); MONOCYTES % (AUTO) 9 % (0-12); NEUTROPHILS # (AUTO) 2.6 X 10^3 (1.8-7.8); NEUTROPHILS % (AUTO) 67 % (42-75); PLATELET COUNT 180 10^3/uL (130-400); RED CELL DISTRIBUTION WIDTH 14.1 % (10.0-14.5); WHITE BLOOD COUNT 3.9 10^3/uL (4.3-11.0)
[2018-08-29 06:45] LABS: BILIRUBIN,TOTAL 0.2 MG/DL (0.1-1.0); CALCIUM 8.8 MG/DL (8.5-10.1); CREATININE SERUM 2.2 MG/DL (0.60-1.30); POTASSIUM 3.9 MMOL/L (3.6-5.0); TOTAL PROTEIN 5.6 GM/DL (6.4-8.2)
[2018-08-29 08:00] VITALS: BP 150/77
[2018-08-29] MEDS: RT-ALBUTEROL SULF 2.5 MG/3 ML PRE-MIX VIAL INH SCH ×2 (08:17→22:11)
[2018-08-29] MEDS ORDERED: NON-FORMULARY MEDICATION 1 EA EA (Liraglutide (Victoza 3-Pak) 1.8 MG) SC SCH (09:00)
[2018-08-29] MEDS ORDERED: CALCITRIOL 0.5 MCG PO SCH (09:00)
[2018-08-29] MEDS: meTOproloL SUCCINATE 50 MG (TOPROL XL) TAB PO SCH ×2 (09:24→20:25)
[2018-08-29] MEDS: OSELTAMIVIR 30 MG (TAMIFLU) CAPSULE PO SCH ×2 (09:24→20:25)
[2018-08-29] MEDS: GABAPENTIN 100 MG (NEURONTIN) CAP PO SCH ×3 (09:24→20:25)
[2018-08-29] MEDS: BENZONATATE 100 MG (TESSALON) CAPSULE PO PRN (09:25)
--- NOTE | 2018-08-29 09:40 | Progress Note-Hospitalist ---
Subjective HPI/CC On Admission Date Seen by Provider: Aug 29, 2018 Time Seen by Provider: 09:15 Chief complaint: Shortness of breath and wheezing. HPI: This is a 63yoWF clinic patient of Dr. Maher with a history of chronic renal disease seen by Dr. Briceño foot caster in [place] who presented to the ER after having difficulty getting out of the car due to fever, confusion after diagnosed with Influenza A at her primary care office. She was found to have a UTI with dehydration and hypoxia due to influenza with wheezing on exam. She was placed on gentle IV fluids because creatinine 2.4 repeat was 2.3. At this current time pt feels very sore and has pain everywhere especially on her right side because of the difficulty getting out of the car. She will have PT and OT ordered and I will continue the nebulizer treatments but overall she is able to eat well for her breakfast. Her is at the bedside. Denies any nausea. No diarrhea or vomiting. I restarted all of her home meds but I am holding her oral hypoglycemic agents due to hypoglycemia. Subjective/Events-last exam Pt doing better but doesn't feel like she is doing better Will discontinue catheter today Will maintain PT and OT Just had a BM x2 today Will heplock IV fluid Will likely go home tomorrow Creatinine is 2.2 Review of Systems General: Fatigue Pulmonary: Cough Focused Exam Lactate Level 08/27/18 17:00: Lactic Acid Level 0.59 Objective Exam Vital Signs Vital Signs Date Time Temp Pulse Resp B/P (MAP) Pulse Ox O2 Delivery O2 Flow Rate FiO2 08/29/18 16:24 98.9 67 20 146/59 (88) 96 Room Air 08/28/18 20:00 2.00 08/27/18 20:56 24 Capillary Refill : Less Than 3 Seconds General Appearance: No Apparent Distress, WD/WN, Chronically ill, Obese HEENT: PERRL/EOMI, TMs Normal, Normal ENT Inspection, Pharynx Normal, Moist Mucous Membranes Neck: Full Range of Motion, Normal Inspection, Non Tender Respiratory: Chest Non Tender, No Accessory Muscle Use, No Respiratory Distress , Decreased Breath Sounds, Wheezing Cardiovascular: Regular Rate, Rhythm, No Edema, No Gallop, No JVD, No Murmur, Normal Peripheral Pulses Gastrointestinal: Normal Bowel Sounds, No Organomegaly, No Pulsatile Mass, Non Tender, Soft Back: Normal Inspection, No CVA Tenderness, No Vertebral Tenderness Extremity: Normal Capillary Refill, Normal Inspection, Normal Range of Motion, Non Tender, No Calf Tenderness, No Pedal Edema Neurologic/Psychiatric: Alert, Oriented x3, No Motor/Sensory Deficits, Normal Mood/Affect Skin: Normal Color, Warm/Dry Lymphatic: No Adenopathy Results/Procedures Lab Laboratory Tests 08/29/18 06:10 Patient resulted labs reviewed. Assessment/Plan Assessment and Plan Assess & Plan/Chief Complaint Assessment: Wheezing AMS Influenza A Acute on chronic renal failure DM HTN Obesity Plan: HLIVF Hold OHA but restart most of home meds DC tomorrow DC catheter Diagnosis/Problems Diagnosis/Problems (1) Influenza A Status: Acute (2) Hypoglycemia associated with diabetes Status: Acute (3) Urinary tract infection Status: Acute Qualifiers: Urinary tract infection type: acute cystitis Hematuria presence: without hematuria Qualified Codes: N30.00 - Acute cystitis without hematuria (4) Acute on chronic renal failure Status: Acute Qualifiers: Acute renal failure type: unspecified Chronic kidney disease stage: unspecified stage Qualified Codes: N17.9 - Acute kidney failure, unspecified; N18.9 - Chronic kidney disease, unspecified (5) Obesity Status: Chronic Qualifiers: Obesity type: due to excess calories Obesity classification: adult class 3 (BMI >= 40) Serious obesity comorbidity presence: with serious comorbidity Body mass index: BMI 45.0-49.9 Qualified Codes: E66.01 - Morbid (severe) obesity due to excess calories; Z68.42 - Body mass index (BMI) 45.0-49.9, adult (6) Hypertension Status: Chronic Qualifiers: Hypertension type: essential hypertension Qualified Codes: I10 - Essential (primary) hypertension (7) Diabetes mellitus Status: Chronic Qualifiers: Diabetes mellitus type: type 2 Diabetes mellitus halfway insulin use: with halfway use Diabetes mellitus complication status: with kidney complications Diabetes mellitus complication detail: with chronic kidney disease Chronic kidney disease stage: stage 3 (moderate) Qualified Codes: E11.22 - Type 2 diabetes mellitus with diabetic chronic kidney disease; N18.3 - Chronic kidney disease, stage 3 (moderate); Z79.4 - oysterman (current) use of insulin Clinical Quality Measures DVT/VTE Risk/Contraindication: Risk Factor Score Per Nursin RFS Level Per Nursing on Admit: 4+=Very High NANDA KIDD DO Aug 29, 2018 09:40
[2018-08-29] MEDS: ACETAMINOPHEN 500 MG TAB (TYLENOL) PO PRN (09:41)
--- NOTE | 2018-08-29 11:15 | Physical Therapy Progress Note ---
Therapy Progress Note 1011 Pt was evaluated by PT yesterday, and checked again today because of new orders. Pt states that she is indep in her room and is on droplet precautions. Pt states that she does not require PT services. Will not pick pt up on services. EVA LY PT Aug 29, 2018 11:15
[2018-08-29 12:00] VITALS: BP 166/74
[2018-08-29 16:24] VITALS: BP 146/59
[2018-08-29] MEDS: cefTRIAXone 1,000 MG/SWFI 10 ML IV PUSH IV SCH ×2 (18:39)
[2018-08-29 19:56] VITALS: BP 163/80
[2018-08-29] MEDS: inSUlin DETERMIR 1 UNIT/0.01 ML (LEVEMIR) CHARGE PER UNIT SQ SCH (20:25)
[2018-08-30 00:23] VITALS: BP 178/77
[2018-08-30] MEDS: CALCITRIOL 0.25 MCG (ROCALTROL) CAPSULE PO SCH (05:41)
[2018-08-30 05:51] LABS: BASOPHILS % (AUTO) 1 % (0-10); EOSINOPHILS # (AUTO) 0.2 10^3/uL (0.0-0.3); EOSINOPHILS % (AUTO) 4 % (0-10); HEMATOCRIT 35 % (35-52); HEMOGLOBIN 10.8 G/DL (11.5-16.0); LYMPHOCYTES # (AUTO) 1.1 X 10^3 (1.0-4.0); LYMPHOCYTES % (AUTO) 26 % (12-44); MEAN CORPUSCULAR HEMOGLOBIN 30 PG (25-34); MEAN CORPUSCULAR HGB CONC 31 G/DL (32-36); MEAN CORPUSCULAR VOLUME 94 FL (80-99); MEAN PLATELET VOLUME 9.2 FL (7.4-10.4); MONOCYTES # (AUTO) 0.4 X 10^3 (0.0-1.0); MONOCYTES % (AUTO) 10 % (0-12); NEUTROPHILS # (AUTO) 2.6 X 10^3 (1.8-7.8); NEUTROPHILS % (AUTO) 61 % (42-75); PLATELET COUNT 189 10^3/uL (130-400); WHITE BLOOD COUNT 4.2 10^3/uL (4.3-11.0)
[2018-08-30 06:11] LABS: ALBUMIN 3.3 GM/DL (3.2-4.5); BILIRUBIN,TOTAL 0.3 MG/DL (0.1-1.0); CALCIUM 9.7 MG/DL (8.5-10.1); CREATININE SERUM 1.88 MG/DL (0.60-1.30); POTASSIUM 3.9 MMOL/L (3.6-5.0); TOTAL PROTEIN 6.1 GM/DL (6.4-8.2)
[2018-08-30] MEDS: inSUlin ASPART (NovoLOG) 1 UNIT/0.01 ML (CHARGE PER UNIT) SC SCH ×5 (06:25→21:30)
[2018-08-30 08:00] VITALS: BP 148/90
[2018-08-30] MEDS: OSELTAMIVIR 30 MG (TAMIFLU) CAPSULE PO SCH ×2 (09:19→21:29)
[2018-08-30] MEDS: meTOproloL SUCCINATE 50 MG (TOPROL XL) TAB PO SCH ×2 (09:19→21:29)
[2018-08-30] MEDS: GABAPENTIN 100 MG (NEURONTIN) CAP PO SCH ×3 (09:19→21:29)
[2018-08-30] MEDS: BENZONATATE 100 MG (TESSALON) CAPSULE PO PRN (09:26)
--- NOTE | 2018-08-30 10:30 | NUR ---
PATIENT C/O FEELING SOB, UP IN CHAIR, O2 SAT 94 PERCENT ON ROOM AIR, DR KIDD NOTIFIED, FEET 1+ EDEMA, CENTRAL LINE RIGHT SIDE OF NECK WITHOUT REDNESS OR SWELLING, VOIDING WITHOUT DIFFICULTY.
[2018-08-30] MEDS: RT-ALBUTEROL SULF 2.5 MG/3 ML PRE-MIX VIAL INH SCH (10:32)
[2018-08-30] MEDS ORDERED: RT-ADVAIR HFA 115/21 MCG PER PUFF IH SCH (11:00)
[2018-08-30] MEDS ORDERED: FUROSEMIDE 40 MG/4 ML INJ (LASIX) IVP NR (12:00)
--- NOTE | 2018-08-30 12:07 | Progress Note-Hospitalist ---
Subjective HPI/CC On Admission Date Seen by Provider: Aug 30, 2018 Time Seen by Provider: 11:00 Chief complaint: Shortness of breath and wheezing. HPI: This is a 63yoWF clinic patient of Dr. Maher with a history of chronic renal disease seen by Dr. Briceño access consultant in [place] who presented to the ER after having difficulty getting out of the car due to fever, confusion after diagnosed with Influenza A at her primary care office. She was found to have a UTI with dehydration and hypoxia due to influenza with wheezing on exam. She was placed on gentle IV fluids because creatinine 2.4 repeat was 2.3. At this current time pt feels very sore and has pain everywhere especially on her right side because of the difficulty getting out of the car. She will have PT and OT ordered and I will continue the nebulizer treatments but overall she is able to eat well for her breakfast. Her is at the bedside. Denies any nausea. No diarrhea or vomiting. I restarted all of her home meds but I am holding her oral hypoglycemic agents due to hypoglycemia. Subjective/Events-last exam Patient wheezing more than I'm comfortable with for discharge We'll check BNP, ABG, chest x-ray and consult Dr. Blanco and Dr. Sampson and check echocardiogram Updated patient on the plan I reassured her that I wanted be sure that she is ready for discharge Creatinine 1.88 and I did give IV fluids so will initiate 1 dose of Lasix for any volume overload Checked meds and labs Started IV steroids so likely will have hyperglycemia No pain is reported Had a panic attack this morning and did not understand why she had that Lower extremity edema noted Review of Systems Pulmonary: Dyspnea, Cough Focused Exam Lactate Level 08/27/18 17:00: Lactic Acid Level 0.59 Objective Exam Vital Signs Vital Signs Date Time Temp Pulse Resp B/P (MAP) Pulse Ox O2 Delivery O2 Flow Rate FiO2 08/30/18 10:50 Room Air 08/30/18 10:30 94 08/30/18 08:00 97.7 63 18 148/90 (109) 08/28/18 20:00 2.00 08/27/18 20:56 24 Capillary Refill : Less Than 3 Seconds General Appearance: No Apparent Distress, WD/WN, Chronically ill, Obese HEENT: PERRL/EOMI, TMs Normal, Normal ENT Inspection, Pharynx Normal, Moist Mucous Membranes Neck: Full Range of Motion, Normal Inspection, Non Tender Respiratory: Chest Non Tender, No Accessory Muscle Use, No Respiratory Distress , Decreased Breath Sounds, Wheezing Cardiovascular: Regular Rate, Rhythm, No Edema, No Gallop, No JVD, No Murmur, Normal Peripheral Pulses Gastrointestinal: Normal Bowel Sounds, No Organomegaly, No Pulsatile Mass, Non Tender, Soft Back: Normal Inspection, No CVA Tenderness, No Vertebral Tenderness Extremity: Normal Capillary Refill, Normal Inspection, Normal Range of Motion, Non Tender, No Calf Tenderness, No Pedal Edema Neurologic/Psychiatric: Alert, Oriented x3, No Motor/Sensory Deficits, Normal Mood/Affect Skin: Normal Color, Warm/Dry Lymphatic: No Adenopathy Results/Procedures Lab Laboratory Tests 08/30/18 05:43 Patient resulted labs reviewed. Assessment/Plan Assessment and Plan Assess & Plan/Chief Complaint Assessment: Wheezing with slight worsening today so we'll complete workup prior to discharge in addition giving IV steroids Presumed volume overload due to IV fluids giving Lasix 1 dose AMS resolved Influenza A Acute on chronic renal failure improved now creatinine 1.88 after fluid DM HTN Obesity Plan: HLIVF Hold OHA but restart most of home meds DC on hold Consult Dr. Blanco and Dr. Sampson Check echo Check chest x-ray Check labs to evaluate source of increased wheezing Diagnosis/Problems Diagnosis/Problems (1) Influenza A Status: Acute (2) Hypoglycemia associated with diabetes Status: Acute (3) Urinary tract infection Status: Acute Qualifiers: Urinary tract infection type: acute cystitis Hematuria presence: without hematuria Qualified Codes: N30.00 - Acute cystitis without hematuria (4) Acute on chronic renal failure Status: Acute Qualifiers: Acute renal failure type: unspecified Chronic kidney disease stage: unspecified stage Qualified Codes: N17.9 - Acute kidney failure, unspecified; N18.9 - Chronic kidney disease, unspecified (5) Obesity Status: Chronic Qualifiers: Obesity type: due to excess calories Obesity classification: adult class 3 (BMI >= 40) Serious obesity comorbidity presence: with serious comorbidity Body mass index: BMI 45.0-49.9 Qualified Codes: E66.01 - Morbid (severe) obesity due to excess calories; Z68.42 - Body mass index (BMI) 45.0-49.9, adult (6) Hypertension Status: Chronic Qualifiers: Hypertension type: essential hypertension Qualified Codes: I10 - Essential (primary) hypertension (7) Diabetes mellitus Status: Chronic Qualifiers: Diabetes mellitus type: type 2 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 use: with terminal gauger supervisor use Diabetes mellitus complication status: with kidney complications Diabetes mellitus complication detail: with chronic kidney disease Chronic kidney disease stage: stage 3 (moderate) Qualified Codes: E11.22 - Type 2 diabetes mellitus with diabetic chronic kidney disease; N18.3 - Chronic kidney disease, stage 3 (moderate); Z79.4 - senior care (current) use of insulin (8) Wheezing Status: Acute (9) Volume overload Status: Acute Qualifiers: Hypervolemia type: unspecified Qualified Codes: E87.70 - Fluid overload, unspecified (10) Panic attack Status: Acute (11) Chronic illness Status: Chronic Clinical Quality Measures DVT/VTE Risk/Contraindication: Risk Factor Score Per Nursin RFS Level Per Nursing on Admit: 4+=Very High NANDA KIDD DO Aug 30, 2018 12:07
--- NOTE | 2018-08-30 12:15 | NUR ---
RT HERE, UNABLE TO GET ABG'S. DR KIDD NOTIFIED
[2018-08-30] MEDS ORDERED: RT-LEVALBUTEROL (XOPENEX) 1.25 MG/3 ML NEB NON-FORMULARY INH PRN (12:30)
[2018-08-30] MEDS: ADVAIR HFA 115/21 MCG INHALER 8 GM IH SCH ×2 (12:46→21:19)
[2018-08-30] MEDS: methylPREDNISolone 40 MG/ML (Solu-MEDROL) VIAL IV SCH ×2 (13:12→21:29)
--- NOTE | 2018-08-30 13:54 | Diagnostic Imaging Report ---
INDICATION: Rales. COMPARISON: 08/27/2018. FINDINGS: Frontal and lateral views of the chest demonstrate mild cardiomegaly. Pulmonary vasculature, however, is within normal limits. Right-sided internal jugular central venous catheter is noted with tip at the cavoatrial junction. The lungs are clear. There are no signs of infiltrate, pleural effusions or pneumothoraces. The visualized osseous structures show no acute abnormalities. IMPRESSION: 1. Mild cardiomegaly, but no evidence of failure or focal infiltrate. Dictated by: Dictated on workstation # [id number]
--- NOTE | 2018-08-30 14:45 | Consultation-Cardiology ---
HPI-Cardiology Cardiology Consultation: Date of Consultation 08/30/18 Time Seen by a Provider: 14:45 Date of Admission 08-27-18 Attending Physician Frank Kincaid MD Admitting Physician Rafael Maher MD Consulting Physician FREDDY BRANCH HPI: Chief Complaint: Increasing dyspnea Ms. Hutchins is a 63 year old female admitted to 433 from the ED. She reports she went to see her family physician d/t fever, chills, cough and was diagnosed with influenza A. A friend was taking her to [facility] to medicinal plant picker her Rx. She began to feel increasingly weak and diaphoretic. She was brought to the ED and found to be hypoglycemic. She was treated with D50 which improved her mental status. She was also diagnosed with a UTI. She reports she sees Dr. Ravi of nephrology services in [place], [place]. She also sees Dr. Todd for diabetes management. She states this morning she had increasing dyspnea and wheezing. She states she felt she was having a "panic attack" which she feels was d/t the IV in her neck and SOB. She reports the nurse talked with her and she calmed down. She reports increasing bilat LE swelling since being in the hospital. She denies any CP or palpitations. Review of Systems-Cardiology Review of Systems Constitutional: chills, fever, malaise Eyes: No vision change Ears/Nose/Throat: No epistaxis, No recent hearing loss Respiratory: As described under HPI Cardiovascular: As described under HPI Gastrointestinal: No constipation, No diarrhea, No nausea, No vomiting Genitourinary: No dysuria : No Musculoskeletal: no symptoms reported Skin: No rash; other (abrasions to her right arm and hand (skin tears)) Psychiatric/Neurological: As described under HPI; No seizure, No other, No syncope Hematologic: easy bruising All Other Systems Reviewed Negative Unless Noted: Yes AES-Enpbbo-Dsiipt Hx Patient Social History Marrital Status: Alcohol Use: Denies Use Recreational Drug Use: No Smoking Status: Smoker Current Status [employer] 2nd Hand Smoke Exposure: No Recent Foreign Travel: No Recent Infectious Disease Expo: No Physical Abuse Screen: No Sexual Abuse: No Immunizations Up To Date Date of Influenza Vaccine: Mar 25, 2011 Past Medical History PMH As described under Assessment. Family Medical History Family Medical History: She reports family h/o CAD and CODP in her mother Allergies and Home Medications Allergies Coded Allergies: No Known Drug Allergies (Unverified , 07/08/18) Home Medications Albuterol Sulfate 2.5 Mg/3 Ml Vial.neb, 2.5 MG NEB TID, (Reported) Benzonatate 200 Mg Capsule, 200 MG PO TID PRN for COUGH, (Reported) Calcitriol 0.5 Mcg Capsule, 0.5 MCG PO DAILY, (Reported) Doxycycline Hyclate 100 Mg Capsule, 100 MG PO BID, (Reported) 10 DAY SUPPLY FILLED 08-27-18 Febuxostat 80 Mg Tablet, 80 MG PO DAILY, (Reported) Fluticasone/Salmeterol 12 Gm Hfa.aer.ad, 0 PUFF IH BID@08,20 Prescribed by: BELLE HIGGINS on 09/01/18 1146 Furosemide 40 Mg Tablet, 40 MG PO Q48H, (Reported) ALTERNATES EVERY OTHER DAY WITH METOLAZONE Gabapentin 100 Mg Capsule, 100 MG PO TID, (Reported) Glipizide 10 Mg Tablet, 5 MG PO BID, (Reported) TAKES 1/2 (10MG) TABLET Insulin Glargine,Hum.rec.anlog 100 Unit/1 Ml Insuln.pen, 10 UNIT SQ HS, ( Reported) Liraglutide 0.6 Mg/0.1 Ml Pen.injctr, 1.8 MG SC DAILY, (Reported) Losartan Potassium 50 Mg Tablet, 50 MG PO DAILY, (Reported) Metolazone 5 Mg Tablet, 5 MG PO Q48H, (Reported) ALTERNATES EVERY OTHER DAY WITH FUROSEMIDE Metoprolol Succinate 50 Mg Tab.er.24h, 50 MG PO BID, (Reported) Pioglitazone HCl 15 Mg Tablet, 15 MG PO DAILY, (Reported) Pravastatin Sodium 20 Mg Tablet, 20 MG PO HS, (Reported) Prednisone 20 Mg Tab, 20 MG PO DAILY@0700 Prescribed by: BELLE HIGGINS on 09/01/18 114 Patient Home Medication List Home Medication List Reviewed: Yes Physical Exam-Cardiology Physical Exam Vital Signs/I&O Capillary Refill : Less Than 3 Seconds Constitutional: AAO x 3, well-developed, well-nourished HEENT: PERRL, oral hygience is good Neck: No carotid bruit; carotid pulses are 2 + bilaterally Respiratory: No accessory muscle use, No respiratory distress; chest expansion is symmetric, chest is bilaterally symmetric, crackles (RLL), rhonchi (scattered ) Cardiovascular: regular rate-rhythm; No JVD; S1 and S2 Gastrointestinal: No tender; soft, round, audible bowel sounds Rectal: deferred Extremities: other (mild to mod bilat LE swelling) Neurologic/Psychiatric: grossly intact, power is 5/5 both on sides Skin: No rash; other (abrasions to right FA and hand - clear occlusive dressings in place) Data Review Labs Microbiology 08/27/18 Blood Culture - Final, Complete No growth 08/27/18 Urine Culture - Final, Complete Escherichia coli Radiology NAME: ANGELA HUTCHINS [facility] REC#: [id number] PT STATUS: ADM IN : 1955 PHYSICIAN: NANDA KIDD DO ADMIT DATE: 08/27/18 Draft Date of Exam:08/30/18 CHEST PA/LAT (2 VIEW) INDICATION: Rales. COMPARISON: 08/27/2018. FINDINGS: Frontal and lateral views of the chest demonstrate mild cardiomegaly. Pulmonary vasculature, however, is within normal limits. Right-sided internal jugular central venous catheter is noted with tip at the cavoatrial junction. The lungs are clear. There are no signs of infiltrate, pleural effusions or pneumothoraces. The visualized osseous structures show no acute abnormalities. IMPRESSION: 1. Mild cardiomegaly, but no evidence of failure or focal infiltrate. Dictated on workstation # [id number] Dict: 08/30/18 1352 Trans: 08/30/18 1354 [id number] Interpreted by: RADHA BUCKNER MD Electronically signed by: A/P-Cardiology Assessment/Admission Diagnosis Increasing dyspnea - CHF vs volume overload Influenza A - management per medical services HTN Acute on chronic renal failure - acute likely d/t vol depletion, chronic likely d/t diabetic nephropathy - follows with Dr. Ravi in [place] of nephrology services DM 2 - managed by Dr. Todd of endocrinology services UTI - management per medical services Obesity - BMI approx 47 H/O wound to RLE d/t trauma for which she was treated at the wound clinic - now healed Discussion and Recomendations Increasing dyspnea of undetermined etiology - CHF vs volume overload - IV Lasix x 1 dose given Echocardiogram to eval structure EKG today Monitor lab Continue antihypertensive tx regimen she is currently on UTI - management per medical services Influenza A - management per medical services DM 2 management per medical services Further recs based on her hospital course We would like to thank medical services for this consult Clinical Quality Measures DVT/VTE Risk/Contraindication: Risk Factor Score Per Nursin RFS Level Per Nursing on Admit: 4+=Very High FREDDY MARTINEZ Aug 30, 2018 14:45
--- NOTE | 2018-08-30 15:00 | NUR ---
ECHO DONE, FAMILY AT BEDSIDE
[2018-08-30 15:30] VITALS: BP 172/78
--- NOTE | 2018-08-30 15:51 | Pulmonary Consultation ---
History of Present Illness History of Present Illness Date of Consultation 08/30/18 15:46 Date of Admission Allergies and Home Medications Allergies Coded Allergies: No Known Drug Allergies (Unverified , 07/08/18) Home Medications Albuterol Sulfate 2.5 Mg/3 Ml Vial.neb, 2.5 MG NEB TID, (Reported) Baloxavir Marboxil 40 Mg Tablet, 80 MG PO DAILY, (Reported) TAKE 2 (40MG) TABLETS ONE TIME DOSE (FILLED 08-27-18) Benzonatate 200 Mg Capsule, 200 MG PO TID PRN for COUGH, (Reported) Calcitriol 0.5 Mcg Capsule, 0.5 MCG PO DAILY, (Reported) Doxycycline Hyclate 100 Mg Capsule, 100 MG PO BID, (Reported) 10 DAY SUPPLY FILLED 08-27-18 Febuxostat 80 Mg Tablet, 80 MG PO DAILY, (Reported) Furosemide 40 Mg Tablet, 40 MG PO Q48H, (Reported) ALTERNATES EVERY OTHER DAY WITH METOLAZONE Gabapentin 100 Mg Capsule, 100 MG PO TID, (Reported) Glipizide 10 Mg Tablet, 5 MG PO BID, (Reported) TAKES 1/2 (10MG) TABLET Insulin Glargine,Hum.rec.anlog 100 Unit/1 Ml Insuln.pen, 10 UNIT SQ HS, ( Reported) Liraglutide 0.6 Mg/0.1 Ml Pen.injctr, 1.8 MG SC DAILY, (Reported) Losartan Potassium 50 Mg Tablet, 50 MG PO DAILY, (Reported) Metolazone 5 Mg Tablet, 5 MG PO Q48H, (Reported) ALTERNATES EVERY OTHER DAY WITH FUROSEMIDE Metoprolol Succinate 50 Mg Tab.er.24h, 50 MG PO BID, (Reported) Pioglitazone HCl 15 Mg Tablet, 15 MG PO DAILY, (Reported) Pravastatin Sodium 20 Mg Tablet, 20 MG PO HS, (Reported) Past Aoxlynl-Umsmyr-Pngaun Hx Past Med/Social Hx: Reviewed Nursing Past Med/Soc Hx, Reviewed and Corrections made Patient Social History Alcohol Use: Denies Use Recreational Drug Use: No Smoking Status: Smoker Current Status [employer] Smoke Exposure: No Recent Foreign Travel: No Contact w/Someone Who Travel: No Recent Infectious Disease Expo: No Recent Hopitalizations: No Immunizations Up To Date Date of Influenza Vaccine: Mar 25, 2011 Seasonal Allergies Seasonal Allergies: No Past Medical History Surgeries: Yes (1 C SECTION) Respiratory: No Cardiac: Yes Hypertension Neurological: No Reproductive Disorders: No Sexually Transmitted Disease: No HIV/AIDS: No Genitourinary: Yes Renal Failure Gastrointestinal: No Musculoskeletal: No Endocrine: Yes Diabetes, Non-Insulin dep HEENT: Yes (READING GLASSES) Loss of Vision: Bilateral Hearing Impairment: Denies Cancer: No Psychosocial: No Integumentary: No Blood Disorders: No Adverse Reaction/Blood Tranf: No (N/A) Family Medical History Reviewed Nursing Family Hx No Pertinent Family Hx Sepsis Event Evaluation Height, Weight, BMI Height: 5'7.00" Weight: 297lbs. 0.4oz. 134.615536gx; 46.5 BMI Method:Estimated Exam Exam Vital Signs Date Time Temp Pulse Resp B/P (MAP) Pulse Ox O2 Delivery O2 Flow Rate FiO2 08/30/18 10:50 Room Air 08/30/18 10:30 94 Room Air 08/30/18 08:00 97.7 63 18 148/90 (109) 95 Room Air 08/30/18 00:23 96.8 67 18 178/77 (110) 96 Room Air 08/29/18 22:11 97 Room Air 08/29/18 20:00 Room Air 08/29/18 19:56 97.1 76 20 163/80 (107) 93 Room Air 08/29/18 16:24 98.9 67 20 146/59 (88) 96 Room Air I & O 08/30/18 07:00 Intake Total 1760 ml Output Total 1100 ml Balance 660 ml Height & Weight Height: 5'7.00" Weight: 297lbs. 0.4oz. 134.365729bo; 46.5 BMI Method:Estimated General Appearance: No Apparent Distress, WD/WN, Chronically ill, Obese HEENT: PERRL/EOMI, TMs Normal, Normal ENT Inspection, Pharynx Normal, Moist Mucous Membranes Neck: Full Range of Motion, Normal Inspection, Non Tender Respiratory: Chest Non Tender, No Accessory Muscle Use, No Respiratory Distress , Decreased Breath Sounds, Wheezing Cardiovascular: Regular Rate, Rhythm, No Edema, No Gallop, No JVD, No Murmur, Normal Peripheral Pulses Capillary Refill: Less Than 3 Seconds Extremity: Normal Capillary Refill, Normal Inspection, Normal Range of Motion, Non Tender, No Calf Tenderness, No Pedal Edema Neurologic/Psychiatric: Alert, Oriented x3, No Motor/Sensory Deficits, Normal Mood/Affect Skin: Normal Color, Warm/Dry Lymphatic: No Adenopathy Results Lab Laboratory Tests 08/29/18 06:10 08/30/18 05:43 Assessment/Plan Assessment/Plan Influenza A -Tamiflu Acute bronchitis -Xopenex -Solumedrol -Currently only on RA Pulmonary edema -Agree with Lasix UTI -Rocephin Acute on chronic renal failure Obesity HTN DM II Anxiety with panic attacks SHABNAM DUNN DO Aug 30, 2018 15:51
[2018-08-30] MEDS: RT-LEVALBUTEROL (XOPENEX) 1.25 MG/3 ML NEB NON-FORMULARY INH SCH ×2 (16:17→21:18)
[2018-08-30] MEDS ORDERED: amLODIPine 10 MG (NORVASC) TAB PO NR (16:45)
--- NOTE | 2018-08-30 16:52 | Consultation-Cardiology ---
HPI-Cardiology Cardiology Consultation: Date of Consultation 08/30/18 Time Seen by a Provider: 16:30 Date of Admission Attending Physician Frank Kincaid MD Admitting Physician Rafael Maher MD Consulting Physician NORMA HOWARD MD, MA, FACP, FACC, [facility] [place], CCDS Physician requesting consult: Dr Pham HPI: Chief Complaint: Reason for consultation: Wheezing, shortness of breath Ms. Kaet is a 63 year old female admitted to [facility] from the ED. She reports she went to see her family physician d/t fever, chills, cough and was diagnosed with influenza A. A friend was taking her to [facility]'s pharmacy to grain picker her Rx. She began to feel increasingly weak and diaphoretic. She was brought to the ED and found to be hypoglycemic. She was treated with D50 which improved her mental status. She was also diagnosed with a UTI. She reports she sees Dr. Ravi of nephrology services in [place], [place]. She also sees Dr. Todd for diabetes management. She states this morning she had increasing dyspnea and wheezing. She states she felt she was having a "panic attack" which she feels was d/t the IV in her neck and SOB. She reports the nurse talked with her and she calmed down. She reports increasing bilat LE swelling since being in the hospital. She denies any CP or palpitations. Review of Systems-Cardiology Review of Systems Constitutional: chills, fever, malaise Eyes: No vision change Ears/Nose/Throat: No epistaxis, No recent hearing loss Respiratory: As described under HPI Cardiovascular: As described under HPI Gastrointestinal: No constipation, No diarrhea, No nausea, No vomiting Genitourinary: No dysuria : No Musculoskeletal: no symptoms reported Skin: No rash; other (abrasions to her right arm and hand (skin tears)) Psychiatric/Neurological: As described under HPI; No seizure, No other, No syncope Hematologic: easy bruising All Other Systems Reviewed Negative Unless Noted: Yes IRD-Pavndl-Ccitbe Hx Patient Social History Marrital Status: Alcohol Use: Denies Use Recreational Drug Use: No Smoking Status: Smoker Current Status [employer] Smoke Exposure: No Recent Foreign Travel: No Recent Infectious Disease Expo: No Physical Abuse Screen: No Sexual Abuse: No Immunizations Up To Date Date of Influenza Vaccine: Mar 25, 2011 Past Medical History PMH As described under Assessment. Family Medical History Family Medical History: She reports family h/o CAD and COPD in her mother Allergies and Home Medications Allergies Coded Allergies: No Known Drug Allergies (Unverified , 07/08/18) Home Medications Albuterol Sulfate 2.5 Mg/3 Ml Vial.neb, 2.5 MG NEB TID, (Reported) Baloxavir Marboxil 40 Mg Tablet, 80 MG PO DAILY, (Reported) TAKE 2 (40MG) TABLETS ONE TIME DOSE (FILLED 08-27-18) Benzonatate 200 Mg Capsule, 200 MG PO TID PRN for COUGH, (Reported) Calcitriol 0.5 Mcg Capsule, 0.5 MCG PO DAILY, (Reported) Doxycycline Hyclate 100 Mg Capsule, 100 MG PO BID, (Reported) 10 DAY SUPPLY FILLED 08-27-18 Febuxostat 80 Mg Tablet, 80 MG PO DAILY, (Reported) Furosemide 40 Mg Tablet, 40 MG PO Q48H, (Reported) ALTERNATES EVERY OTHER DAY WITH METOLAZONE Gabapentin 100 Mg Capsule, 100 MG PO TID, (Reported) Glipizide 10 Mg Tablet, 5 MG PO BID, (Reported) TAKES 1/2 (10MG) TABLET Insulin Glargine,Hum.rec.anlog 100 Unit/1 Ml Insuln.pen, 10 UNIT SQ HS, ( Reported) Liraglutide 0.6 Mg/0.1 Ml Pen.injctr, 1.8 MG SC DAILY, (Reported) Losartan Potassium 50 Mg Tablet, 50 MG PO DAILY, (Reported) Metolazone 5 Mg Tablet, 5 MG PO Q48H, (Reported) ALTERNATES EVERY OTHER DAY WITH FUROSEMIDE Metoprolol Succinate 50 Mg Tab.er.24h, 50 MG PO BID, (Reported) Pioglitazone HCl 15 Mg Tablet, 15 MG PO DAILY, (Reported) Pravastatin Sodium 20 Mg Tablet, 20 MG PO HS, (Reported) Patient Home Medication List Home Medication List Reviewed: Yes Physical Exam-Cardiology Physical Exam Vital Signs/I&O 08/30/18 08/30/18 08/30/18 08/30/18 08:00 10:30 10:50 15:30 Temp 97.7 98.4 Pulse 63 59 Resp 18 18 B/P (MAP) 148/90 (109) 172/78 (109) Pulse Ox 95 94 95 O2 Delivery Room Air Room Air Room Air Room Air 08/30/18 16:17 Pulse Ox 95 O2 Delivery Room Air 08/30/18 00:00 Intake Total 1660 ml Output Total 1100 ml Balance 560 ml Capillary Refill : Less Than 3 Seconds Constitutional: AAO x 3, well-developed, well-nourished HEENT: PERRL, oral hygience is good Neck: No carotid bruit; carotid pulses are 2 + bilaterally Respiratory: No accessory muscle use, No respiratory distress; chest expansion is symmetric, chest is bilaterally symmetric, crackles (RLL), rhonchi (scattered ) Cardiovascular: regular rate-rhythm; No JVD; S1 and S2 Gastrointestinal: No tender; soft, round, audible bowel sounds Rectal: deferred Extremities: other (mild to mod bilat LE swelling) Neurologic/Psychiatric: grossly intact, power is 5/5 both on sides Skin: No rash; other (abrasions to right FA and hand - clear occlusive dressings in place) Data Review Labs Laboratory Tests 08/29/18 20:06: Glucometer 221H 08/30/18 05:43: White Blood Count 4.2L, Red Blood Count 3.66L, Hemoglobin 10.8L, Hematocrit 35, Mean Corpuscular Volume 94, Mean Corpuscular Hemoglobin 30, Mean Corpuscular Hemoglobin Concent 31L, Red Cell Distribution Width 14.0, Platelet Count 189, Mean Platelet Volume 9.2, Neutrophils (%) (Auto) 61, Lymphocytes (%) (Auto) 26, Monocytes (%) (Auto) 10, Eosinophils (%) (Auto) 4, Basophils (%) (Auto) 1, Neutrophils # (Auto) 2.6, Lymphocytes # (Auto) 1.1, Monocytes # (Auto) 0.4, Eosinophils # (Auto) 0.2, Basophils # (Auto) 0.0, Sodium Level 144, Potassium Level 3.9, Chloride Level 109H, Carbon Dioxide Level 25, Anion Gap 10, Blood Urea Nitrogen 41H, Creatinine 1.88H, Estimat Glomerular Filtration Rate 27, BUN/ Creatinine Ratio 22, Glucose Level 110H, Calcium Level 9.7, Corrected Calcium 10.3H, Total Bilirubin 0.3, Aspartate Amino Transf (AST/SGOT) 20, Alanine Aminotransferase (ALT/SGPT) 23, Alkaline Phosphatase 19L, Total Protein 6.1L, Albumin 3.3 08/30/18 10:54: Glucometer 153H 08/30/18 13:20: B-Type Natriuretic Peptide 300.0H Microbiology 08/27/18 Blood Culture - Preliminary, Resulted No growth 08/27/18 Urine Culture - Final, Complete Escherichia coli Laboratory Tests 08/29/18 06:10 08/30/18 05:43 A/P-Cardiology Assessment/Admission Diagnosis Influenza A - management per medical services HTN, not well controlled Acute on chronic renal failure - acute likely d/t vol depletion, chronic likely d/t diabetic nephropathy - follows with Dr. Ravi in [place] of nephrology services DM 2 - managed by Dr. Todd of Endocrinology UTI - management per Dr Pham Obesity - BMI approx 47 Pulmonary hypertension (PASP 55 mmHg) likely due to PARAG and/or obesity- hypoventilation syndrome Echo of 08/30/18: LVEF 60-65%, mild MR, mod TR, PASP 55 mmHg H/o wound to RLE d/t trauma for which she was treated at the wound clinic - now healed Discussion and Recomendations * I had a long and detailed discussion with her regarding echo findings and her CV risk factors * Wgt loss advised * Outpt f/u advised * Amlodipine added to regimen for better bp control * Sleep studies advised * Monitor labs Clinical Quality Measures DVT/VTE Risk/Contraindication: Risk Factor Score Per Nursin RFS Level Per Nursing on Admit: 4+=Very High NORMA HOWARD MD FACP [facility] Aug 30, 2018 16:52
[2018-08-30] MEDS: cefTRIAXone 1,000 MG/SWFI 10 ML IV PUSH IV SCH ×2 (17:56)
[2018-08-30 20:20] VITALS: BP 156/72
--- NOTE | 2018-08-30 21:15 | NUR ---
Dr. Timmons contacted by this RN at 2114 to notify of FSBS 416 taken at 2099. MD ordered to give 12 units levemir, unscheduled dose of Novolog 10 units and to recheck FSBS at 0200. Orders read back by this RN and confirmed by MD. Will continue to monitor.
[2018-08-30] MEDS: inSUlin DETERMIR 1 UNIT/0.01 ML (LEVEMIR) CHARGE PER UNIT SQ SCH (21:30)
[2018-08-31] VITALS: BP 154/77
--- NOTE | 2018-08-31 01:02 | NUR ---
Dr. Timmons informed of pt complaining of difficulty sleeping due to steroids, okay to give already ordered 1,000mg Tylenol and add one time dose of benadryl 25mg with it to act as Tylenol PM. Order read back and confirmed.
[2018-08-31] MEDS ORDERED: diphenhydrAMINE 25 MG TAB (BENADRYL) PO ONE (01:15)
[2018-08-31] MEDS: ACETAMINOPHEN 500 MG TAB (TYLENOL) PO PRN (01:27)
[2018-08-31] MEDS: RT-LEVALBUTEROL (XOPENEX) 1.25 MG/3 ML NEB NON-FORMULARY INH SCH ×4 (01:40→19:48)
[2018-08-31] MEDS: CALCITRIOL 0.25 MCG (ROCALTROL) CAPSULE PO SCH (06:01)
[2018-08-31] MEDS: inSUlin ASPART (NovoLOG) 1 UNIT/0.01 ML (CHARGE PER UNIT) SC SCH ×4 (06:01→20:28)
[2018-08-31 06:19] LABS: BASOPHILS % (AUTO) 0 % (0-10); EOSINOPHILS % (AUTO) 0 % (0-10); HEMATOCRIT 35 % (35-52); HEMOGLOBIN 11.3 G/DL (11.5-16.0); LYMPHOCYTES # (AUTO) 0.7 X 10^3 (1.0-4.0); LYMPHOCYTES % (AUTO) 12 % (12-44); MEAN CORPUSCULAR HEMOGLOBIN 30 PG (25-34); MEAN CORPUSCULAR HGB CONC 33 G/DL (32-36); MEAN CORPUSCULAR VOLUME 92 FL (80-99); MEAN PLATELET VOLUME 9.4 FL (7.4-10.4); MONOCYTES # (AUTO) 0.1 X 10^3 (0.0-1.0); MONOCYTES % (AUTO) 2 % (0-12); NEUTROPHILS # (AUTO) 5.1 X 10^3 (1.8-7.8); NEUTROPHILS % (AUTO) 85 % (42-75); PLATELET COUNT 230 10^3/uL (130-400); WHITE BLOOD COUNT 5.9 10^3/uL (4.3-11.0)
[2018-08-31 06:42] LABS: ALBUMIN 3.4 GM/DL (3.2-4.5); BILIRUBIN,TOTAL 0.3 MG/DL (0.1-1.0); CALCIUM 9.9 MG/DL (8.5-10.1); CREATININE SERUM 2.1 MG/DL (0.60-1.30); POTASSIUM 3.7 MMOL/L (3.6-5.0); TOTAL PROTEIN 6.5 GM/DL (6.4-8.2)
--- NOTE | 2018-08-31 07:51 | Pulmonary Progress Note ---
Subjective Time Seen by a Provider: 08:34 Subjective/Events-last exam Pt feels much better. Sepsis Event Evaluation Height, Weight, BMI Height: 5'7.00" Weight: 297lbs. 0.4oz. 134.480333et; 46.5 BMI Method:Estimated Exam Exam Vital Signs Date Time Temp Pulse Resp B/P (MAP) Pulse Ox O2 Delivery O2 Flow Rate FiO2 08/31/18 01:40 92 Room Air 08/31/18 00:00 97.1 72 18 154/77 (102) 94 Room Air 08/30/18 21:22 94 Room Air 08/30/18 21:18 92 Room Air 08/30/18 20:20 98.9 58 20 156/72 (100) 94 Room Air 08/30/18 20:00 Room Air 08/30/18 16:17 95 Room Air 08/30/18 15:30 98.4 59 18 172/78 (109) 95 Room Air 08/30/18 10:50 Room Air 08/30/18 10:30 94 Room Air 08/30/18 08:00 97.7 63 18 148/90 (109) 95 Room Air I & O 08/31/18 06:59 Intake Total 1600 ml Balance 1600 ml Height & Weight Height: 5'7.00" Weight: 297lbs. 0.4oz. 134.641849jn; 46.5 BMI Method:Estimated General Appearance: No Apparent Distress, WD/WN HEENT: PERRL/EOMI, Pharynx Normal Neck: Non Tender, Supple Respiratory: Lungs Clear, Normal Breath Sounds Cardiovascular: Regular Rate, Rhythm, No Murmur Capillary Refill: Less Than 3 Seconds Extremity: Normal Range of Motion, Non Tender Neurologic/Psychiatric: Alert, Oriented x3, Other (initially significantly altered and then became unresponsive. After D50 administration, patient became alert and oriented 3.) Skin: Normal Color, Warm/Dry Lymphatic: No Adenopathy Results Lab Laboratory Tests 08/30/18 05:43 08/31/18 06:05 Assessment/Plan Assessment/Plan nfluenza A -Tamiflu Acute bronchitis -Xopenex, advair -Solumedrol - change to prednisone 20mg x 5days then D/C -Currently only on RA -Will have RT do amb desat test Pulmonary edema -S/P Lasix - repeat 40 x 1 Hyperglycemia secondary to steroids -Change solumedrol to prednisone 20mg x 5days then D/C UTI -Rocephin Acute on chronic renal failure Obesity HTN DM II Anxiety with panic attacks Pt is ok for discharge from pulmonary standpoint with prednisone, and advair. I am going to have RT do amb desat test for 02 qualification. I will follow as out pt in 2 wks. SHABNAM DUNN DO Aug 31, 2018 07:51
[2018-08-31 08:00] VITALS: BP 179/74
[2018-08-31] MEDS ORDERED: FUROSEMIDE 40 MG/4 ML INJ (LASIX) IVP NR (08:45)
[2018-08-31] MEDS ORDERED: KCL 10 MEQ TAB (MICRO K) PO NR (08:45)
[2018-08-31] MEDS: amLODIPine 10 MG (NORVASC) TAB PO SCH (09:30)
[2018-08-31] MEDS: OSELTAMIVIR 30 MG (TAMIFLU) CAPSULE PO SCH ×2 (09:31→20:28)
[2018-08-31] MEDS: meTOproloL SUCCINATE 50 MG (TOPROL XL) TAB PO SCH ×2 (09:31→20:29)
[2018-08-31] MEDS: GABAPENTIN 100 MG (NEURONTIN) CAP PO SCH ×3 (09:31→20:31)
--- NOTE | 2018-08-31 09:52 | NUR ---
HOME 02 QUALIFICATION DONE ATT. PTS SP02 DROPPED TO 86% AFTER 2 MINS. 2LPM NC APPLIED SP02 RETURNED TO 96% AFTER 3 MINS. PT QUALIFIES FOR HOME 02 AT 2LPM AT ALL TIMES Addendum: 08/31/18 at 0952 by AMERICO OLIVER RT Amended: Links added.
[2018-08-31] MEDS ORDERED: PATIENT MAY USE OWN MEDS, ALL MC SCH (11:00)
--- NOTE | 2018-08-31 11:02 | Progress Note-Hospitalist ---
Subjective HPI/CC On Admission Date Seen by Provider: Aug 31, 2018 Time Seen by Provider: 10:00 Chief complaint: Shortness of breath and wheezing. HPI: This is a 63yoWF clinic patient of Dr. Maher with a history of chronic renal disease seen by Dr. Briceño research agricultural engineer in [place] who presented to the ER after having difficulty getting out of the car due to fever, confusion after diagnosed with Influenza A at her primary care office. She was found to have a UTI with dehydration and hypoxia due to influenza with wheezing on exam. She was placed on gentle IV fluids because creatinine 2.4 repeat was 2.3. At this current time pt feels very sore and has pain everywhere especially on her right side because of the difficulty getting out of the car. She will have PT and OT ordered and I will continue the nebulizer treatments but overall she is able to eat well for her breakfast. Her is at the bedside. Denies any nausea. No diarrhea or vomiting. I restarted all of her home meds but I am holding her oral hypoglycemic agents due to hypoglycemia. Subjective/Events-last exam Patient continues to be hypoxic with ambulation however she has not been on incentive spirometry. Her blood sugars also been in the 400s and she has not been started on her home medications. As such her discharge will be held for reinstitution of her home medications and attempts at incentive spirometry to improve her oxygenation and she has not been on home O2 before. She complains of discomfort with her external jugular vein line. Review of Systems Pulmonary: Dyspnea, Cough Objective Exam Vital Signs Vital Signs Date Time Temp Pulse Resp B/P (MAP) Pulse Ox O2 Delivery O2 Flow Rate FiO2 08/31/18 09:19 96 Nasal Cannula 2.00 08/31/18 08:00 98.5 73 20 179/74 (109) 08/27/18 20:56 24 Capillary Refill : Less Than 3 Seconds General Appearance: No Apparent Distress, WD/WN HEENT: PERRL/EOMI, Pharynx Normal Neck: Non Tender, Supple Respiratory: Lungs Clear, Normal Breath Sounds Cardiovascular: Regular Rate, Rhythm, No Murmur Gastrointestinal: Non Tender, Soft Back: Normal Inspection, No CVA Tenderness, No Vertebral Tenderness Extremity: Normal Range of Motion, Non Tender Neurologic/Psychiatric: Alert, Oriented x3, Other (initially significantly altered and then became unresponsive. After D50 administration, patient became alert and oriented 3.) Skin: Normal Color, Warm/Dry Lymphatic: No Adenopathy Results/Procedures Lab Laboratory Tests 08/31/18 06:05 Patient resulted labs reviewed. Assessment/Plan Assessment and Plan Assess & Plan/Chief Complaint Acute respiratory failure with hypoxia Influenza A Type II diabetes out of control secondary to steroids Obesity Possible sleep apnea Skin tears Hypertension Pulmonary hypertension Chronic renal failure Clinical Quality Measures DVT/VTE Risk/Contraindication: Risk Factor Score Per Nursin RFS Level Per Nursing on Admit: 4+=Very High BELLE HIGGINS MD Aug 31, 2018 11:02
[2018-08-31] MEDS ORDERED: BENZONATATE 100 MG (TESSALON) CAPSULE PO PRN (12:00)
--- NOTE | 2018-08-31 14:25 | Progress Note-Cardiology ---
Cardiology SOAP Progress Note Subjective: No new symptoms No cp or palp Shortness of breath better Objective: I&O/Vital Signs 08/31/18 08/31/18 08:00 09:19 Temp 98.5 Pulse 73 Resp 20 B/P (MAP) 179/74 (109) Pulse Ox 93 96 O2 Delivery Room Air Nasal Cannula O2 Flow Rate 2.00 08/31/18 00:00 Intake Total 1200 ml Balance 1200 ml Weight (Pounds): 297 Weight (Ounces): 0.4 Weight (Calculated Kilograms): 134.382954 Constitutional: AAO x 3, well-developed, well-nourished Respiratory: No accessory muscle use, No respiratory distress; chest expansion is symmetric, chest is bilaterally symmetric, crackles (RLL), rhonchi (scattered ) Cardiovascular: regular rate-rhythm; No JVD; S1 and S2 Gastrointestional: No tender; soft, round, audible bowel sounds Extremities: other (mild to mod bilat LE swelling) Neurologic/Psychiatric: grossly intact, power is 5/5 both on sides Skin: No rash; other (abrasions to right FA and hand - clear occlusive dressings in place) Results/Procedures: Labs Laboratory Tests 08/30/18 18:14: Glucometer 346H 08/30/18 21:02: Glucometer 416*H 08/31/18 01:30: Glucometer 286H 08/31/18 05:49: Glucometer 306H 08/31/18 06:05: White Blood Count 5.9, Red Blood Count 3.78L, Hemoglobin 11.3L, Hematocrit 35, Mean Corpuscular Volume 92, Mean Corpuscular Hemoglobin 30, Mean Corpuscular Hemoglobin Concent 33, Red Cell Distribution Width 14.0, Platelet Count 230, Mean Platelet Volume 9.4, Neutrophils (%) (Auto) 85H, Lymphocytes (%) (Auto) 12 , Monocytes (%) (Auto) 2, Eosinophils (%) (Auto) 0, Basophils (%) (Auto) 0, Neutrophils # (Auto) 5.1, Lymphocytes # (Auto) 0.7L, Monocytes # (Auto) 0.1, Eosinophils # (Auto) 0.0, Basophils # (Auto) 0.0, Sodium Level 140, Potassium Level 3.7, Chloride Level 102, Carbon Dioxide Level 24, Anion Gap 14, Blood Urea Nitrogen 43H, Creatinine 2.10H, Estimat Glomerular Filtration Rate 24, BUN/ Creatinine Ratio 20, Glucose Level 338H, Calcium Level 9.9, Corrected Calcium 10.4H, Total Bilirubin 0.3, Aspartate Amino Transf (AST/SGOT) 24, Alanine Aminotransferase (ALT/SGPT) 30, Alkaline Phosphatase 21L, Total Protein 6.5, Albumin 3.4 08/31/18 09:54: Glucometer 433*H Microbiology 08/27/18 Blood Culture - Preliminary, Resulted No growth 08/27/18 Urine Culture - Final, Complete Escherichia coli A/P: Assessment: Influenza A - management per medical services HTN, not well controlled Acute on chronic renal failure - acute likely d/t vol depletion, chronic likely d/t diabetic nephropathy - follows with Dr. Ravi in [place] of nephrology services DM 2 - managed by Dr. Todd of Endocrinology UTI - management per Dr Pham Obesity - BMI approx 47 Pulmonary hypertension (PASP 55 mmHg) likely due to PARAG and/or obesity- hypoventilation syndrome Echo of 08/30/18: LVEF 60-65%, mild MR, mod TR, PASP 55 mmHg Plan: * Consider adding hydralazine 50 bid to regimen if bp stays uncontrolled * Sleep studies advised * Monitor labs NORMA HOWARD MD FACP [facility] Aug 31, 2018 14:25
[2018-08-31] MEDS ORDERED: FUROSEMIDE 40 MG (LASIX) TAB PO SCH (14:30)
[2018-08-31] MEDS ORDERED: METOLAZONE 5 MG (ZAROXOLYN) TAB PO SCH (15:00)
[2018-08-31] MEDS: ADVAIR HFA 115/21 MCG INHALER 8 GM IH SCH ×2 (15:03→19:49)
[2018-08-31 15:25] VITALS: BP 146/70
[2018-08-31] MEDS: LOSARTAN 50 MG (COZAAR) TAB PO SCH (16:30)
[2018-08-31] MEDS: CEFDINIR 300 MG (OMNICEF) CAP PO SCH (20:28)
[2018-08-31] MEDS ORDERED: BASAGLAR 100 UNIT/ML SQ SCH (21:00)
[2018-08-31] MEDS ORDERED: PRAVASTATIN 20 MG (PRAVACHOL) TAB NON-FORMULARY PO SCH (21:00)
[2018-09-01 00:30] VITALS: BP 134/62
[2018-09-01] MEDS: RT-LEVALBUTEROL (XOPENEX) 1.25 MG/3 ML NEB NON-FORMULARY INH SCH ×2 (01:38→09:23)
--- NOTE | 2018-09-01 03:00 | NUR ---
Daylight savings in effect at this time.
[2018-09-01] MEDS: inSUlin ASPART (NovoLOG) 1 UNIT/0.01 ML (CHARGE PER UNIT) SC SCH ×3 (06:29→13:54)
--- NOTE | 2018-09-01 06:31 | Pulmonary Progress Note ---
Sepsis Event Evaluation Height, Weight, BMI Height: 5'7.00" Weight: 297lbs. 0.4oz. 134.431146yx; 46.5 BMI Method:Estimated Exam Exam Vital Signs Date Time Temp Pulse Resp B/P (MAP) Pulse Ox O2 Delivery O2 Flow Rate FiO2 09/01/18 01:38 98 Nasal Cannula 2.00 09/01/18 00:30 97.4 74 18 134/62 (86) 97 Nasal Cannula 1.00 08/31/18 20:00 Nasal Cannula 1.00 08/31/18 19:55 Nasal Cannula 2.00 08/31/18 19:49 96 Nasal Cannula 2.00 08/31/18 15:25 98.6 75 18 146/70 (95) 96 Nasal Cannula 2.00 08/31/18 15:03 96 Nasal Cannula 2.00 08/31/18 09:19 96 Nasal Cannula 2.00 08/31/18 08:00 98.5 73 20 179/74 (109) 93 Room Air 08/31/18 08:00 96 Nasal Cannula 1.00 I & O 09/01/18 07:00 Intake Total 1590 ml Output Total 400 ml Balance 1190 ml Height & Weight Height: 5'7.00" Weight: 297lbs. 0.4oz. 134.168696iz; 46.5 BMI Method:Estimated General Appearance: No Apparent Distress, WD/WN HEENT: PERRL/EOMI, Pharynx Normal Neck: Non Tender, Supple Respiratory: Lungs Clear, Normal Breath Sounds Cardiovascular: Regular Rate, Rhythm, No Murmur Capillary Refill: Less Than 3 Seconds Extremity: Normal Range of Motion, Non Tender Neurologic/Psychiatric: Alert, Oriented x3, Other (initially significantly altered and then became unresponsive. After D50 administration, patient became alert and oriented 3.) Skin: Normal Color, Warm/Dry Lymphatic: No Adenopathy Results Lab Laboratory Tests 08/31/18 06:05 Assessment/Plan Assessment/Plan nfluenza A -Tamiflu Acute bronchitis -Xopenex, advair -Solumedrol - change to prednisone 20mg x 5days then D/C -Currently only on 2liters Hyperglycemia secondary to steroids - prednisone 20mg x 5days then D/C UTI -Rocephin Acute on chronic renal failure Obesity HTN DM II Anxiety with panic attacks SHABNAM DUNN DO Sep 01, 2018 06:31
[2018-09-01] MEDS ORDERED: predniSONE 20 MG TAB PO SCH (07:00)
[2018-09-01 08:00] VITALS: BP 137/65
[2018-09-01] MEDS: CEFDINIR 300 MG (OMNICEF) CAP PO SCH (08:36)
[2018-09-01] MEDS: OSELTAMIVIR 30 MG (TAMIFLU) CAPSULE PO SCH (08:36)
[2018-09-01] MEDS: amLODIPine 10 MG (NORVASC) TAB PO SCH (08:36)
[2018-09-01] MEDS: LOSARTAN 50 MG (COZAAR) TAB PO SCH (08:37)
[2018-09-01] MEDS: GABAPENTIN 100 MG (NEURONTIN) CAP PO SCH (08:38)
[2018-09-01] MEDS: meTOproloL SUCCINATE 50 MG (TOPROL XL) TAB PO SCH (08:40)
[2018-09-01] MEDS ORDERED: [UNRECOGNIZED DRUG - OTHER] PO SCH (09:00)
[2018-09-01] MEDS: ADVAIR HFA 115/21 MCG INHALER 8 GM IH SCH (09:23)
[2018-09-01] MEDS ORDERED: PRD20T PO (11:46)
[2018-09-01] MEDS ORDERED: FLUT12AE4 IH (11:46)
--- NOTE | 2018-09-01 11:56 | Discharge Summary-Hospitalist ---
Diagnosis/Chief Complaint Date of Admission Aug 27, 2018 at 18:05 Date of Discharge September 01, 2018 Discharge Date: Sep 01, 2018 Discharge Time: 13:00 Admission Diagnosis Assessment: Wheezing AMS Influenza A Acute on chronic renal failure DM HTN Obesity Plan: Continue IVF but decrease rate Hold OHA but restart most of home meds Discharge Diagnosis Acute respiratory failure secondary to influenza A Hypoxia secondary to number 1 Urinary tract infection secondary to Escherichia coli Reactive airway disease secondary to number 1 Obstructive sleep apnea Type II diabetes out of control secondary to steroids Hypertension Morbid obesity (1) Influenza A Status: Acute (2) Hypoglycemia associated with diabetes Status: Resolved (3) Urinary tract infection Status: Acute (4) Acute on chronic renal failure Status: Resolved (5) Obesity Status: Chronic (6) Hypertension Status: Chronic (7) Diabetes mellitus Status: Chronic (8) Wheezing Status: Acute (9) Volume overload Status: Acute (10) Panic attack Status: Acute (11) Chronic illness Status: Chronic Discharge Summary Procedures/Consulations Dr. Camilla Banerjee Echocardiogram Discharge Physical Exam Allergies: Coded Allergies: No Known Drug Allergies (Unverified , 07/08/18) Vitals & I&Os Vital Signs Date Time Temp Pulse Resp B/P (MAP) Pulse Ox O2 Delivery O2 Flow Rate FiO2 09/01/18 09:25 98 Nasal Cannula 2.00 09/01/18 08:00 97.4 66 18 137/65 (89) 08/27/18 20:56 24 General Appearance: No Apparent Distress, WD/WN HEENT: Normal ENT Inspection Respiratory: Lungs Clear, Normal Breath Sounds, No Accessory Muscle Use, No Respiratory Distress Cardiovascular: Regular Rate, Rhythm, No Gallop, No Murmur, Normal Peripheral Pulses Gastrointestinal: Normal Bowel Sounds, Non Tender, Soft Extremity: Normal Capillary Refill, No Calf Tenderness Skin: Normal Color, Warm/Dry Neurologic/Psychiatric: Alert, Oriented x3, No Motor/Sensory Deficits, Normal Mood/Affect Hospital Course Was the Problem List Reviewed?: Yes Patient was admitted with a depressed mentation secondary to hypoglycemia and respiratory distress. She was diagnosed with a urinary tract infection secondary to Escherichia coli sensitive to Rocephin with which she was treated. And she was diagnosed with influenza A and placed on Tamiflu. The patient had to undergo aggressive respiratory therapy with addition of steroids for her reactive airway disease. The patient has had to be maintained on oxygen throughout the hospitalization and it is felt that she most likely has underlying obstructive sleep apnea. Echocardiogram showed elevated pulmonary artery pressures of 55 mmHg. patient's blood sugars been out of control secondary to steroid use. At the time of discharge the patient is feeling much better but remains weak and is requiring 2 L of oxygen on nasal cannula to maintain her saturations above 90 percent. Labs (last 24 hrs) Laboratory Tests 08/31/18 14:51: Glucometer 311H 08/31/18 20:11: Glucometer 352H 09/01/18 05:21: Glucometer 267H 09/01/18 09:13: Glucometer 356H Microbiology 08/27/18 Blood Culture - Preliminary, Resulted No growth 08/27/18 Urine Culture - Final, Complete Escherichia coli Patient resulted labs reviewed. Pending Labs Laboratory Tests 09/01/18 05:21: Glucometer 267 09/01/18 09:13: Glucometer 356 Discussion & Recommendations Discharge Planning: >30 minutes discharge planning Discharge Home Medications: Active Scripts Active Prednisone 20 Mg Tab 20 Mg PO DAILY@0700 3 Days Advair Hfa 115-21 Mcg Inhaler (Fluticasone/Salmeterol) 12 Gm Hfa.aer.ad 0 Puff IH BID@08,20 14 Days Reported Albuterol Sulfate 2.5 Mg/3 Ml Vial.neb 2.5 Mg NEB TID Benzonatate 200 Mg Capsule 200 Mg PO TID PRN Doxycycline Hyclate 100 Mg Capsule 100 Mg PO BID 10 Days 10 DAY SUPPLY FILLED 08-27-18 Metoprolol Succinate 50 Mg Tab.er.24h 50 Mg PO BID Victoza 3-Michael (Liraglutide) 0.6 Mg/0.1 Ml Pen.injctr 1.8 Mg SC DAILY Uloric (Febuxostat) 80 Mg Tablet 80 Mg PO DAILY Pravastatin Sodium 20 Mg Tablet 20 Mg PO HS Metolazone 5 Mg Tablet 5 Mg PO Q48H ALTERNATES EVERY OTHER DAY WITH FUROSEMIDE Losartan Potassium 50 Mg Tablet 50 Mg PO DAILY Glipizide 10 Mg Tablet 5 Mg PO BID TAKES 1/2 (10MG) TABLET Gabapentin 100 Mg Capsule 100 Mg PO TID Calcitriol 0.5 Mcg Capsule 0.5 Mcg PO DAILY Basaglar Angeliquepen U-100 (Insulin Glargine,Hum.rec.anlog) 100 Unit/1 Ml Insuln.pen 10 Unit SQ HS Pioglitazone HCl 15 Mg Tablet 15 Mg PO DAILY Furosemide 40 Mg Tablet 40 Mg PO Q48H ALTERNATES EVERY OTHER DAY WITH METOLAZONE Instructions to patient/family Please see electronic discharge instructions given to patient. Clinical Quality Measures DVT/VTE Risk/Contraindication: Risk Factor Score Per Nursin RFS Level Per Nursing on Admit: 4+=Very High Copy Copies To 1: ANDREW NAVARRO MD Copies To 2: SHABNAM DUNN DO Problem Qualifiers (1) Urinary tract infection: Urinary tract infection type: acute cystitis Hematuria presence: without hematuria Qualified Codes: N30.00 - Acute cystitis without hematuria (2) Acute on chronic renal failure: Acute renal failure type: unspecified Chronic kidney disease stage: unspecified stage Qualified Codes: N17.9 - Acute kidney failure, unspecified; N18.9 - Chronic kidney disease, unspecified (3) Obesity: Obesity type: due to excess calories Obesity classification: adult class 3 ( BMI >= 40) Serious obesity comorbidity presence: with serious comorbidity Body mass index: BMI 45.0-49.9 Qualified Codes: E66.01 - Morbid (severe) obesity due to excess calories; Z68.42 - Body mass index (BMI) 45.0-49.9, adult (4) Hypertension: Hypertension type: essential hypertension Qualified Codes: I10 - Essential ( primary) hypertension (5) Diabetes mellitus: Diabetes mellitus type: type 2 Diabetes mellitus nursing home insulin use: with nursing home use Diabetes mellitus complication status: with kidney complications Diabetes mellitus complication detail: with chronic kidney disease Chronic kidney disease stage: stage 3 (moderate) Qualified Codes: E11.22 - Type 2 diabetes mellitus with diabetic chronic kidney disease; N18.3 - Chronic kidney disease, stage 3 (moderate); Z79.4 - terminal manager (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
[2018-09-01 15:30] VITALS: BP 137/65
--- NOTE | 2018-09-05 12:17 | Physician Query Clarification ---
PQ-Present on Admission Admission/Discharge Admission Date: Aug 27, 2018 at 18:05 Discharge Date: Sep 01, 2018 at 15:30 Question: Acute Respiratory Failure with hypoxia secondary to Influenza A was documented on day 4, 08/31 progress note and your discharge summary. Can you specify if this condition was present on admission? Please document a response below. PHYSICIAN RESPONSE Condition was Present on Admit: Yes In responding to this query, please exercise your independent professional judgment. The purpose of this communication is to more accurately reflect the complexity of your patients condition. The fact that a question is asked does not imply that any particular answer is desired or expected. Thank you for your timely response to this clarification. Requestors name: Neelam Husain [facility] Phone # ext [phone] or [phone] THIS PHYSICIAN QUERY FORM IS A PERMANENT PART OF THE MEDICAL RECORD NEELAM HUSAIN Sep 05, 2018 12:17 BELLE HIGGINS MD Sep 06, 2018 11:15
== END 2018-09-01 15:30 | disposition home health service (06) | DRG 682 ==
LOC: EDUNIT# 16:21 → ER 16:22 → 4TH 18:05
PROVIDERS: ADMIT Internal Medicine; ATTEND Internal Medicine
PROC: 02HV33Z Insertion of Infusion Device into Superior Vena Cava, Percutaneous Approach (ICD-10-PCS; principal; 2018-08-27)
DX: N17.9 Acute kidney failure, unspecified (principal); N30.00 Acute cystitis without hematuria; B96.20 Unspecified Escherichia coli [E. coli] as the cause of diseases classified elsewhere; J10.1 Influenza due to other identified influenza virus with other respiratory manifestations; J20.9 Acute bronchitis, unspecified; J96.01 Acute respiratory failure with hypoxia; Z68.42 Body mass index [BMI] 45.0-49.9, adult; J81.1 Chronic pulmonary edema; E66.2 Morbid (severe) obesity with alveolar hypoventilation; E11.21 Type 2 diabetes mellitus with diabetic nephropathy; N18.3 Chronic kidney disease, stage 3 (moderate); E86.0 Dehydration; E11.649 Type 2 diabetes mellitus with hypoglycemia without coma; E11.65 Type 2 diabetes mellitus with hyperglycemia; I10 Essential (primary) hypertension; J45.909 Unspecified asthma, uncomplicated; R41.82 Altered mental status, unspecified; I27.23 Pulmonary hypertension due to lung diseases and hypoxia; S61.411A Laceration without foreign body of right hand, initial encounter; S51.811A Laceration without foreign body of right forearm, initial encounter; F41.0 Panic disorder [episodic paroxysmal anxiety]; E87.70 Fluid overload, unspecified; T49.0X5A Adverse effect of local antifungal, anti-infective and anti-inflammatory drugs, initial encounter; I08.1 Rheumatic disorders of both mitral and tricuspid valves; X58.XXXA Exposure to other specified factors, initial encounter; Z79.84 Long term (current) use of oral hypoglycemic drugs
CPT/HCPCS: 36415; 36556; 36600; 51702; 71045; 71046; 80053; 81000; 82805; 82962; 83605; 83880; 85025; 85610; 85730; 87040; 87077; 87088; 87186; 93005; 93306; 94640; 94664; 94760; 94761; 96361; 96374; 96375

== ENCOUNTER → 2020-08-16 | Outpatient (CLI) | payer OTHER, MEDICARE ==
[~2020-08-16] MED LIST changes: +ALBU2.5V4 NEB; +BALO40TA PO; +BENZ200C51 PO; +DOXY100C2 PO; +FLUT12AE4 IH; +LIRA0.6P3 SC; +METO50TA7 PO; +PRD20T PO
--- NOTE | 2020-08-16 17:07 | Diagnostic Imaging Report ---
PROCEDURE: US left lower extremity venous. TECHNIQUE: Multiple real-time grayscale images were obtained over the left lower extremity in various projections. Additional duplex Doppler and color Doppler images were also obtained. INDICATION: Left lower extremity swelling and pain. COMPARISON: None. FINDINGS: Visualized deep and superficial venous system is patent. There is no DVT. IMPRESSION: Negative left lower extremity venous Doppler. Dictated by: Dictated on workstation # [id number]
== END ==
LOC: RAD 15:27
DX: M79.89 Other specified soft tissue disorders (principal)